=== PATIENT | male | born 1945 | race Caucasian/White ===

== ENCOUNTER 2021-07-07 11:12 | Emergency (ER) | payer MEDICARE, OTHER, SELFPAY ==
--- NOTE | ~2021-07-07 | CT_ITS ---
EXAMINATION: CT HEAD WITHOUT CONTRAST CLINICAL INFORMATION: Fall. Head trauma. Patient on Coumadin. COMPARISON: None TECHNIQUE: Contiguous axial imaging was performed from the skull base to vertex without intravenous administration of contrast. This CT examination was performed using dose optimization techniques as appropriate, variously including the following: *Automated exposure control *Adjustment of mA and/or kV according to patient size (this includes techniques or standardized protocols for targeted exams where dose is matched to indication/reason for exam; i.e. extremities or head) *Use of iterative reconstruction technique DLP: 805 mGy-cm FINDINGS: There is no evidence of an extra-axial collection. There is no evidence of intra-axial or extra-axial hemorrhage. The ventricles and extra-axial CSF spaces are slightly prominent suggestive of mild generalized atrophy. There is mild nonspecific periventricular white matter disease. There is an old right basal ganglia infarct. No mass, mass effect or acute infarct is seen. No skull fracture is seen. There is partial soft tissue opacification of the inferior bilateral mastoid air cells. Paranasal sinuses, mastoid air cells and middle ears are otherwise clear. CT/CT head/brain wo con IMPRESSION: No acute findings. Mild generalized atrophy and nonspecific periventricular white matter disease. Old right basal ganglia lacunar infarct.
[2021-07-07 11:16] VITALS: BP 162/72; PULSE 62; RESP 18; TEMP 36.7; O2SAT 98; BMI 31.1
[2021-07-07 13:04] LABS: MANUAL DIFF FLAG NO
[2021-07-07 13:06] LABS: Basophils Percent Auto 0.6 % (0-2); Eosinophils Absolute Auto 0.3 X10*3/uL (0.0-0.4); Eosinophils Percent Auto 4.9 % (0-4); Hematocrit 33.9 % (42-52); Hemoglobin 11.2 g/dl (14.0-18.0); Imm Gran Abs Auto 0.01 X10*3/uL (0.00-0.03); Imm Gran Pct Auto 0.1 % (0.0-0.4); Lymphocytes Absolute Auto 1.4 X10*3/uL (1.2-4.9); Lymphocytes Percent Auto 19.6 % (20-40); Mean Corpuscular Hemoglobin 30.4 pg (27.0-33.0); Mean Corpuscular Volume 92.1 fL (80-98); Mean Platelet Volume 9.1 fL (9.4-12.4); Monocytes Absolute Auto 0.8 X10*3/uL (0.1-1.2); Monocytes Percent Auto 11.1 % (2-11); Neutrophils Absolute Auto 4.4 X10*3/uL (2.0-8.3); Neutrophils Percent Auto 63.7 % (45-73); Platelet Count 219 X10*3/uL (160-400); Red Blood Count 3.68 X10*6/uL (4.60-5.80); Red Cell Distribution Width 13.6 % (11.0-16.0)
[2021-07-07 13:11] LABS: INTERNATIONAL NORM RATIO 1.2 (0.9-1.1); Prothrombin Time 13.6 SEC (9.9-13.0)
--- NOTE | 2021-07-07 13:36 | ED_ITS ---
HPI - General Adult General Source: patient and family Mode of arrival: ambulatory Limitations: no limitations History of Present Illness HPI narrative: 75-year-old male with past medical history of hypertension, hype rcholesteremia, hypothyroidism, history of stent 5 years ago is here today after sustaining fall at home. Patient reports that this was a mechanical fall. He got up from the couch and was walking pass the coffee table when he tripped on the wooden floor. Patient explains that he felt like his sneaker got caught on the floor and he lost his balance and fell backwards onto the coffee table. Patient is on blood thinners does not remember the name and was bleeding quite heavy. applied ice immediately. Patient denies any dizziness, blurred vision, paresthesia, neck pain, hip pain, any cervical pain. Patient denies any other concerning symptoms. Bleeding currently is under control. Patient denies any headache. Onset (ago): hour(s) Related Data Allergies Allergy/AdvReac Type Severity Reaction Status Date / Time No Known Allergies Allergy Unverified 06/10/20 14:55 [No Known Allergies*] Review of Systems Review of Systems: Constitutional : No Weight loss, No Fever, No Chills, No Night Sweats, No Fatigue, No Malaise ENT/Mouth : No Hearing loss, No Ear Pain, No Nasal Congestion, No Sinus Pain, No Hoarseness, No sore throat, No Rhinorrhea, No Swallowing Difficulty Eyes: No Eye Pain, No Swelling, No Redness, No Foreign Body, No Discharge, No Vision Changes Cardiovascular : No Chest Pain, No SOB, No Dyspnea on Exertion, No Orthopnea, No Edema, No Palpitations Respiratory : No Cough, No Sputum, No Wheezing, No Smoke Exposure, No Dyspnea Gastrointestinal : No Nausea, No Vomiting, No Diarrhea, No Constipation, No abdominal Pain, No Hematochezia, No Melena Genitourinary : no irregular bleeding, No Dysuria, No Urinary Frequency, No Hematuria, No Urinary Incontinence, No Urgency, No Flank Pain, No Urinary Flow Changes, No Hesitancy Musculoskeletal : No joint pain, No Myalgias, No Joint Swelling Skin : No Skin Lesions, No rash, head laceration Neuro : No Weakness, No Numbness, No Paresthesias, No Loss of Consciousness, No Dizziness, No Headache Yes all other systems are reviewed and are negative [facility] Past Medical History Medical History (Updated 07/08/21 @ 00:02 by Background Kathryn) High cholesterol HTN (hypertension) Hypothyroid Social History Social History Patient Tobacco Use Status: Former Tobacco user Advance Directives: No Advance Directives Information Provided: Yes Physical Exam Vital Signs: Vital Signs: Last Vital Signs Temp 98.0 F 07/07/21 11:16 Pulse 57 07/07/21 13:38 Resp 18 07/07/21 13:38 BP 160/69 H 07/07/21 13:38 Pulse Ox 99 07/07/21 13:38 Body Mass Index 31.1 Const: General: healthy appearing, no acute distress and well developed Nutritional Appearance: well nourished Orientation/consciousness: patient oriented x3 HENMT: Head: Yes laceration Ears: hearing grossly normal bilaterally, external ears normal and TM's normal bilaterally General nose exam: Normal external nose present and Normal nares present Face and sinus: Yes normal facial exam Mouth: Normal oral and palatal mucosa present Eyes: General: appearance normal, both eyes and all related structures Neck: Neck: Yes normal visual inspection, Yes full ROM and Yes trachea midline Thyroid: Thyroid normal Resp: Effort & Inspection: normal respiratory effort and able to speak in complete sentences Auscultation: clear to auscultation bilaterally Cardio: Jugular venous distension: no JVD Rate: regular rate Rhythm: regular rhythm Heart sounds: S1 normal heart sound present and S2 normal heart sound present GI: Inspection: Yes normal to inspection, No distended and Yes obesity Palpation (GI): Soft to palpation, nontender, no guarding and No hepatosplenomegaly present Auscultation: normal bowel sounds : General: Yes no CVA tenderness Back/Spine/Pelvis: Back: no CVA tenderness Cervical Spine: normal cervical lordosis Thoracic/Lumbar Spine: thoracic and lumbar spine normal to inspec tion Skin: General skin exam: elasticity normal, turgor normal and dry skin Neuro: General: patient oriented x3 Course Course Course Narrative: 76-year-old is here today after sustaining a fall. Patient is on anticoagulation medication. He tripped walking, his sneaker got caught on the floor and he fell backwards. He hit the back of his head against a coffee table. Patient does not remember when he had tetanus vaccine, will update that. Will order PT and INR. CT of the head. Will clean and stable his wound. Bleeding is under control. Patient denies any dizziness, blurred vision. Neuro's are intact NIH score is 0. Patient denies presyncope, syncope. Denies any CP, PND, palpitation, SOB with or without exertion. Reevaluation(s) Reevaluation #1: CT of the head negative for bleed or any acute findings. Will stable patient's wound. PT 13.6 and INR 1.2, H&H 11.2 and 33.9. Patient was given copy of his lab results we can bring it to his PCP. Patient denies any melena, hematochezia, unintentional weight loss or ribbon like stools. Patient continues to have intact neuro s, ambulated to the bathroom gait steady, denies any dizziness. Patient also denies any pain. He will go home to follow-up with his PCP. He may return to ER to remove his ayaan in 7-10 days. Discussed with him the importance to look for symptoms of concussion. Patient was encouraged to stay away from TV, cell phone, I pad or any other electronics for the next 72 hours. Medical Decision Making Lab Data Result diagrams: 07/07/21 13:00 Labs: Lab Results 07/07/21 07/07/21 Range/Units 13:00 13:00 WBC 7.0 (4.8-10.8) X10*3/uL RBC 3.68 L (4.60-5.80) X10*6/uL Hgb 11.2 L (14.0-18.0) g/dl Hct 33.9 L (42-52) % MCV 92.1 (80-98) fL MCH 30.4 (27.0-33.0) pg MCHC 33.0 (31.0-36.0) g/dl RDW 13.6 (11.0-16.0) % Plt Count 219 (160-400) X10*3/uL MPV 9.1 L (9.4-12.4) fL Immature Gran % (Auto) 0.1 (0.0-0.4) % Neut % (Auto) 63.7 (45-73) % Lymph % (Auto) 19.6 L (20-40) % [place] % (Auto) 11.1 H (2-11) % Eos % (Auto) 4.9 H (0-4) % Baso % (Auto) 0.6 (0-2) % Lymph # (Auto) 1.4 (1.2-4.9) X10*3/uL [place] # (Auto) 0.8 (0.1-1.2) X10*3/uL Eos # (Auto) 0.3 (0.0-0.4) X10*3/uL Baso # (Auto) 0.0 (0.0-0.2) X10*3/uL Abs Immat Gran (auto) 0.01 (0.00-0.03) X10*3/uL Absolute Neuts (auto) 4.4 (2.0-8.3) X10*3/uL Absolute Nucleated RBC 0.000 (0.0-0.012) X10*3/uL Nucleated RBC % (auto) 0.0 (0.0-0.2) /100WBC PT 13.6 H (9.9-13.0) SEC INR 1.2 H (0.9-1.1) Discharge Plan Discharge Clinical Impression: Laceration, Head concussion Patient Disposition: Home, Self-Care Instructions: Concussion (ED), Head Laceration (ED) Additional Instructions: You were seen here today after sustaining a fall. You have a laceration in the back of your head that was stapled today with total of 9 ayaan. Make sure you do not take a shower for the next 24 hours. When you do take a shower make sure that the water does not fall directly on to that laceration. Please make sure that you watch for signs and symptoms of blurred vision, headache, dizziness, excessive sleepiness. Please follow-up with your primary care physician in 2-3 days. You have to return for staple removal in 7-10 days. Please do not take ibuprofen. You may take Tylenol for headache or pain. You were also given a tetanus vaccine. Referrals: Raghu Drake MD [Primary Care Provider] - 2 days Interventions: ED Discharge Assessment Last Done: 07/07/21 14:29 Discharge Date/Time: 07/07/21 14:30
[2021-07-07 13:38] VITALS: BP 160/69; PULSE 57; RESP 18; O2SAT 99
[2021-07-07] MEDS: Diphth,Pertus(ACell),Tet Adult 0.5 ML SYRINGE IM (14:24)
== END 2021-07-07 14:30 | disposition home or self-care (01) ==
PROVIDERS: Nurse Practitioner Family; Emergency Provider Emergency Medicine; PCP Internal Medicine
DX: S06.0X0A Concussion without loss of consciousness, initial encounter (principal); S01.81XA Laceration without foreign body of other part of head, initial encounter; I10 Essential (primary) hypertension; Z79.01 Long term (current) use of anticoagulants; W01.190A Fall on same level from slipping, tripping and stumbling with subsequent striking against furniture, initial encounter; Y93.9 Activity, unspecified; Y92.009 Unspecified place in unspecified non-institutional (private) residence as the place of occurrence of the external cause; Y99.9 Unspecified external cause status
CPT/HCPCS: 12001; 36415; 70450; 85025; 85610; 90471; 90715; 99284

== ENCOUNTER 2023-04-16 12:02 | Emergency (ER) | payer MEDICARE, OTHER, SELFPAY ==
[2023-02-08 11:12] VITALS: BP 108/58; BP 136/62; BP 144/58; BMI 26.3
[2023-04-16 12:12] VITALS: BP 126/60; PULSE 61; RESP 18; TEMP 36; O2SAT 96; BMI 27.8
--- NOTE | 2023-04-16 12:13 | ED_ITS ---
HPI - General Adult General Chief complaint: Urogenital-Male Stated complaint: Urinary issues Time Seen by Provider: 04/16/23 13:27 Source: patient and RN notes reviewed Mode of arrival: ambulatory Limitations: no limitations History of Present Illness HPI narrative: This is a 77-year-old male, with a past medical history of hyperlipidemia, hypertension, and thyroid disease, presenting to the emergency department to have his Blanco catheter removed. Patient was away on vacation last week and having difficulty urinating as he was on a boat all day. He was seen in the emergency department where they placed a catheter and prescribed him Flomax. Patient has had a catheter in for 4 days and reports pulling sensation from the catheter and would like this removed. He has had no problems with his prostate or urinary retention in the past. Patient reports that while he was in the hospital, they tested him for a urinary tract infection which was negative. He denies any fevers, chills, nausea, vomiting, diarrhea, abdominal pain. He has not been taking Flomax as the pharmacy in [place] was closed, however is following up with primary care physician to have this prescribed to him if it is deemed necessary. No other complaints or concerns at this time. MD complaint: Blanco catheter removal Onset (ago): day(s) Severity: mild Quality: aching Relieving factors: none Exacerbating factors: none Associated symptoms: denies other symptoms Treatments prior to arrival: none Related Data Home Medications Medication Instructions Recorded Confirmed amiodarone 200 mg tablet 200 mg PO BID 01/01/23 atorvastatin 80 mg tablet 80 mg PO BEDTIME 01/01/23 clopidogrel 75 mg tablet 75 mg PO DAILY 01/01/23 ferrous sulfate 325 mg (65 mg 325 mg PO DAILY 01/01/23 iron) tablet,delayed release furosemide 40 mg tablet 40 mg PO BID 01/01/23 isosorbide mononitrate 30 mg 30 mg PO QAM 01/01/23 tablet,extended release 24 hr metoprolol succinate 50 mg 50 mg PO DAILY 01/01/23 tablet,extended release 24 hr tamsulosin 0.4 mg capsule 0.4 mg PO DAILY 01/01/23 Previous Rx's Medication Instructions Recorded azithromycin 250 mg tablet See Rx Instructions PO .COMPLEX #6 01/01/23 tabs cefuroxime axetil 250 mg tablet 250 mg PO BID 7 days #14 tabs 04/16/23 Allergies Allergy/AdvReac Type Severity Reaction Status Date / Time No Known Allergies Allergy Verified 04/16/23 12:12 [No Known Allergies*] Review of Systems Review of Systems: Yes all other systems are reviewed and are negative Constitutional: Constitutional: Reports as per [facility] Past Medical History Medical History (Updated 04/16/23 @ 17:18 by BARBARA Doshi) High cholesterol HTN (hypertension) Hypothyroid Social History Social History Patient Tobacco Use Status: Former Tobacco user Tobacco use type: Cigarette Years Smoked: 50 Advance Directives: No Advance Directives Information Provided: Yes Physical Exam ED Vital Signs: Vital Signs - 24 hr 04/16/23 12:12 Temperature 96.8 F Pulse Rate 61 Respiratory Rate 18 Blood Pressure 126/60 Pulse Oximetry 96 Oxygen Delivery Method Room Air BMI result Body Mass Index 27.8 Const General: cooperative, comfortable and no acute distress Orientation/consciousness: patient oriented x3 Limitations: no limitations HENMT Head: Yes normal to inspection, Yes normocephalic and Yes atraumatic Ears: hearing grossly normal bilaterally General nose exam: Normal external nose present Face and sinus: Yes normal facial exam Mouth: Normal oral and palatal mucosa present, oropharynx normal and moist mucous membranes Throat: Yes posterior oropharynx normal Eyes General: appearance normal, both eyes and all related structures Eyelids: Yes eyelids normal Conjunctivae: conjunctivae normal Sclerae: sclerae normal Pupils: Equal, round and reactive pupils present EOM: EOMs intact bilaterally Neck Neck: Yes normal visual inspection, Yes full ROM and Yes no lymphadenopathy Lymphatic: no lymphadenopathy noted Chest Chest palpation & inspection: normal inspection of the chest Resp Effort & Inspection: normal respiratory effort and able to speak in complete sentences Auscultation: clear to auscultation bilaterally, no crackles, no rales, no rhonchi and no wheezes Cardio Rate: regular rate Rhythm: regular rhythm Heart sounds: S1 normal heart sound present and S2 normal heart sound present GI Other: Abdomen is soft, non distended, nontender Inspection: Yes normal to inspection Other: exam performed with picture framer, Ysabel Latham LPN present. Blanco catheter placed, no surrounding erythema or edema. No testicular swelling or erythema noted Male General Exam: Yes normal external exam Penis: normal penis and circumcised Meatus: meatus normal, no meatla discharge and No Blood at meatus present Scrotum: scrotum normal Testes: Testes normal Skin General skin exam: no rashes or lesions noted Trauma: no lacerations or abrasions Wounds: no wounds Neuro General: patient oriented x3 and moves all extremities Cranial nerves: Yes Equal, round and reactive pupils present Extrem General: Yes normal to inspection Right upper extremity: normal to inspection Left upper extremity: normal to inspection Right lower extremity: normal to inspection Left lower extremity: normal to inspection Course Course Course Narrative: RME- this 77-year-old male presents for evaluation of ?issues with Blanco ca theter. Patient had a Blanco catheter placed 4 days ago in an emergency room in [place]. He has not been able to fiber picker his prescription for Flomax. He is having some discomfort related to the catheter as there is a ?pulling sensation. He reports the catheter is draining appropriately. Plan to get the patient a bed when available Reevaluation(s) Reevaluation #1: Patient has urinated 2-3 times since having Blanco catheter removed. Patient has no pain with urination or blood in his urine. I believe urine sample collected from catheter revealing blood and small leuks is due to trauma of having catheter placed. Given patient has had increased urinary frequency since having catheter removed in the emergency department as well as small leukoesterases, and bacteria, will treat as urinary tract infection. Patient given referral to Urology. Advised to call tomorrow for an appointment as well as following up with primary care physician regarding this visit. Ultrasound confirming no urinary retention. Patient given return precautions if any new or worsening symptoms occur. Patient understands and agrees with plan. Time: 17:08 Medical Decision Making Medical Decision Making [facility] Narrative: 77-year-old male presenting to the emergency department to have Blanco catheter removed. Patient had Blanco catheter placed while on vacation in [place] for urinary retention. He is also given a prescription for Flomax which he did not fiber picker from the pharmacy as it was already closed. He has had no history of prostate problems in the past. No history of urinary retention in the past. On arrival, vital signs within normal limits. Differential diagnoses include urinary retention, BPH, urinary tract infection, obstructive uropathy. Plan: Remove catheter, UA, postvoid ultrasound Differential Diagnosis Differential Diagnoses: The differential diagnosis associated with the presentation includes Urinary retention, BPH, urinary tract infection, cystitis Lab Data [facility] Lab Attestation statement: I reviewed the patient's lab results. Labs: Lab Results 04/16/23 Range/Units 14:56 Urine Color Yellow Urine Appearance Clear Urine pH 6.0 (5.0-9.0) Ur Specific [place] 1.020 (1.005-1.025) Urine Protein 30 (1+) H (Neg-Trace) mg/dL Urine Glucose (UA) Negative (Negative) mg/dL Urine Ketones Negative (Negative) mg/dL Urine Blood Large (3+) H (Negative) Urine Nitrite Negative (Negative) Ur Leukocyte Esterase Small (1+) H (Negative) Urine RBC >20 H (0-2) /HPF Urine WBC 0-5 (0-5) /HPF Ur Squamous Epith Cells 0-2 (0-2) /HPF Urine Bacteria Trace (None Seen) Hyaline Casts 0-2 (0-2) /LPF Radiology Impression Discussion of test interpretation with radiology: I have reviewed the radiologist's reading. External Record Review External record reviewed: Inpatient record, Office record, Outpatient record, Prior outpatient labs, Prior outpatient radiology, Primary care record and Outside ED record Discharge Plan Discharge Clinical Impression: History of urinary retention, Blanco catheter in place prior to arrival, Urinary tract infection Patient Disposition: Home, Self-Care Instructions: Urinary Tract Infection in Men (ED), Catheter-associated Urinary Tract Infection (ED) Additional Instructions: Please drink plenty of fluids and get plenty of rest. Please follow-up with your primary care physician regarding this visit. Also call Urology tomorrow for follow up. Please take full course of antibiotics, even if you are feeling better. If any new or worsening symptoms occur including but not limited to inability to urinate, fevers, chills, painful urination, please return for re-evaluation. Prescriptions: New cefuroxime axetil 250 mg tablet 250 mg PO BID 7 Days Qty: 14 0RF No Action ferrous sulfate 325 mg (65 mg iron) tablet,delayed release (DR/EC) 325 mg PO DAILY tamsulosin 0.4 mg capsule 0.4 mg PO DAILY metoprolol succinate 50 mg tablet extended release 24 hr 50 mg PO DAILY atorvastatin 80 mg tablet 80 mg PO BEDTIME clopidogrel 75 mg tablet 75 mg PO DAILY furosemide 40 mg tablet 40 mg PO BID amiodarone 200 mg tablet 200 mg PO BID isosorbide mononitrate 30 mg tablet extended release 24 hr 30 mg PO QAM azithromycin 250 mg tablet See Rx Instructions PO .COMPLEX Qty: 6 0RF Rx Instructions: take 500 mg today (day 1), then 250 mg for 4 days (days 2-5) PO Referrals: [facility] [Provider Group] Interventions: ED Discharge Assessment Last Done: 04/16/23 17:29 Discharge Date/Time: 04/16/23 17:29
--- OUTSIDE RECORDS SUMMARY | 2023-04-16 13:34 | XMS_ITS | Continuity of Care Document ---
Author Name Unknown Organization [facility] Address [address] [place] [address]- Care Team Providers Care Power Superintendent Name Role Phone Tasneem Borja MD Primary Care Physician [place] [facility] [place] - 09/14/22 [facility] [address] [place] [phone]- [place] Allergies, Adverse Reactions, Alerts No Known Allergies Medications amiodarone 200 mg oral tablet 200 mg, 1, tablet, By Mouth, 2 times a day, # 60 tablet, Refills 0, Tot. Refills 0, Maintenance, 08/28/22 14:55:00 EST, Route to Pharmacy Electronically, [facility], Partial fill upon patient request if the prescription is for a schedule... Start Date: 08/28/22 Status: Ordered aspirin 81 mg oral delayed release tablet 81 mg, By Mouth, Daily, Refills 0, Maintenance, 01/26/16 16:24:29 Start Date: 01/26/16 Status: Ordered atorvastatin 80 mg oral tablet = 80 mg, By Mouth, Daily at bedtime, # 30 tablet, 11 Refills, Maintenance, Tablet, Print Requisition Start Date: 01/26/16 Status: Ordered Cholecalciferol = 1,000 units, By Mouth, Daily, 0 Refills, Maintenance, 08/11/22 10:25:00 EST, Partial fill upon patient request if the prescription is for a schedule II opioid drug. Start Date: 08/11/22 Status: Ordered clopidogrel 75 mg oral tablet 75 mg, 1, tablet, By Mouth, Daily, # 30 tablet, Refills 0, Tot. Refills 0, Maintenance, 08/28/22 14:55:00 EST, Route to Pharmacy Electronically, [facility], Partial fill upon patient request if the prescription is for a schedule II opioi... Start Date: 08/28/22 Status: Ordered cyanocobalamin 1000 mcg oral tablet 1,000 mcg, 1, tablet, By Mouth, Daily, # 30 tablet, Refills 0, Maintenance, 08/14/22 10:44:00 EST, Partial fill upon patient request if the prescription is for a schedule II opioid drug. Start Date: 08/14/22 Status: Ordered docusate-senna 50 mg-187 mg oral tablet 1 tablet, By Mouth, Daily, # 30 tablet, 0 Refills, Acute 09/25/22 14:57:00 EST, 08/28/22 14:56:00 EST, Tablet, [facility], Partial fill upon patient request if the prescription is for aschedule II opioid drug., 1 tablet By Mouth Daily,... Start Date: 08/28/22 Stop Date: 09/25/22 Status: Ordered ferrous sulfate 325 mg oral enteric coated tablet 325 mg, 1, tablet, By Mouth, Daily, # 30 tablet, Refills 0, Tot. Refills 0, Maintenance, 08/28/22 14:56:00 EST, Route to Pharmacy Electronically, [facility], Partial fill upon patient request if the prescription is for a schedule II opio... Start Date: 08/28/22 Status: Ordered Lasix 40 mg oral tablet 40 mg, 1, tablet, By Mouth, 2 times a day, # 6 tablet, Refills 0, Tot. Refills 0, Maintenance, 08/28/22 14:56:00 EST, Route to Pharmacy Electronically, [facility], Partial fill upon patient request if the prescription is for a schedule I... Start Date: 08/28/22 Stop Date: 08/31/22 Status: Ordered levothyroxine 150 mcg (0.15 mg) oral tablet 1 tablet = 150 mcg, By Mouth, Every other day, Alternate with 175mcg dose, # 30 tablet, 0 Refills, Maintenance, 08/14/22 10:52:00 EST, Tablet, Partial fill upon patient request if the prescription isfor a schedule II opioid drug. Start Date: 08/14/22 Status: Ordered levothyroxine 175 mcg (0.175 mg) oral tablet 1 tablet = 175 mcg, By Mouth, Every other day, Alternate with 150mcg dose, # 30 tablet, 0 Refills, Maintenance, 08/14/22 10:51:00 EST, Tablet, Partial fill upon patient request if the prescription isfor a schedule II opioid drug. Start Date: 08/14/22 Status: Ordered Otezla 30 mg oral tablet 1 tablet = 30 mg, By Mouth, 2 times a day, 0 Refills, Maintenance, 08/11/22 10:14:00 EST, Partial fill upon patient request if the prescription is for a schedule II opioid drug. Start Date: 08/11/22 Status: Ordered potassium chloride 10 mEq oral tablet, extended release 2 tablet = 20 mEq, By Mouth, 2 times a day, # 12 tablet, 0 Refills, Maintenance, 08/28/22 14:56:00 EST, ER Tablet, [facility], Partial fill upon patient request if the prescription is for a schedule II opioid drug., 186, cm, 08/28/22 12:... Start Date: 08/28/22 Stop Date: 08/31/22 Status: Ordered tamsulosin 0.4 mg oral capsule 0.4 mg, 1, capsule, By Mouth, Daily, # 30 capsule, Refills 0, Tot. Refills 0, Maintenance, 08/28/2214:56:00 EST, Route to Pharmacy Electronically, [facility], Partial fill upon patientrequest if the prescription is for a schedule II op... Start Date: 08/28/22 Status: Ordered Toprol XL 50 mg oral tablet, extended release 50 mg, 1, tablet, By Mouth, Daily, Refills 0, Maintenance, 01/26/16 16:25:47 EDT Start Date: 01/26/16 Status: Ordered Problem List Condition Confirmation Course Effective Dates Status Health St [facility] Informant COPD mixed type Confirmed Active Coronary artery disease Confirmed Active Hypertension Confirmed Active Social History Social History Type Response Smoking Status Former smoker, quit more than 30 days ago entered on: 09/05/22 Sex Patient Care team information Care Team Personnel Name: Tasneem Borja MD [facility] Outreach Member Role: PCP Address: Address: [address] [place] [address]- Name: Laura Roberts RN Position: S RN Supv Member Role: Primary Care Nurse Care Team Related Persons Name: TRISHA ALYSHA Address: home [address] [place] [address]
--- OUTSIDE RECORDS SUMMARY | 2023-04-16 13:34 | XMS_ITS | Continuity of Care Document ---
Author Name Unknown Organization [facility] Address [address] [place] [phone]- Care Team Providers Care Ingot Weigher Name Role Phone Tasneem Borja MD Primary Care Physician [place] [facility] [place] 12/27/22 - 01/26/23 [facility] [address] [place] [address]- Attending Physician: Olivier Torrez Admitting Physician: Olivier Torrez Referring Physician: Olivier Torrez Allergies, Adverse Reactions, Alerts No Known Allergies Medications Acetaminophen = 975 mg, 0 Refills, Maintenance, 11/15/22 10:54:00 EST, Partial fill upon patient request if the prescription is for a schedule II opioid drug. Start Date: 11/15/22 Status: Ordered aspirin 81 mg oral delayed [...] Status: Ordered clopidogrel 75 mg oral tablet 1, tablet, By Mouth, Daily, # 30 tablet, Refills 0, Maintenance, 11/03/22 13:59:00 EST, Route to Pharmacy Electronically, [id number], 186, cm, 10/18/22 10:20:00 EST, Height, 101, kg, 08/23/22 15:54:00 EST, Dry Weight Start Date: 11/03/22 Status: Ordered cyanocobalamin 1000 mcg oral tablet 1,000 mcg, 1, tablet, By Mouth, Daily, # 30 tablet, Refills 0, Maintenance, 08/14/22 10:44:00 EST, Partial fill upon patient request if the prescription is for a schedule II opioid drug. Start Date: 08/14/22 Status: Ordered Docusate-Senna 50 mg - 187 mg Docusate-Senna 50 mg - 187 mg, By Mouth, Daily, 0 Refills, Maintenance, 12/19/22 13:45:00 EDT Start Date: 12/19/22 Status: Ordered ferrous sulfate 325 mg oral enteric coated tablet 1, tablet, By Mouth, Daily, # 30 tablet, Refills 0, Maintenance, 12/28/22 12:07:00 EDT, Route to Pharmacy Electronically, [id number], 188, cm, 12/27/22 15:10:00 EDT, Height, 101, kg, 08/23/22 15:54:00 EST, Dry Weight Start Date: 12/28/22 Status: Ordered Lasix 40 mg oral tablet 40 mg, 1, tablet, By Mouth, Daily, # 180 tablet, Refills 3, Tot. Refills 3, Maintenance, 10/24/22 7:50:00 EST, Route to Pharmacy Electronically, [facility] #[id number], Partial fill upon patient request if the prescription is for a schedule II opioid drug... Start Date: 10/24/22 Status: Ordered levothyroxine 150 mcg (0.15 mg) [...] Refills, Maintenance, 08/28/22 14:56:00 EST, ER Tablet, [facility], Partial fill upon patient request if the prescription is for a schedule II opioid drug., 186, cm, 08/28/22 12:... Start Date: 08/28/22 Stop Date: 08/31/22 Status: Ordered Senna 8.6-50MG, By Mouth, Daily, 0 Refills, Maintenance, 11/15/22 10:54:00 EST, Partial fill upon patientrequest if the prescription is for a schedule II opioid drug. Start Date: 11/15/22 Status: Ordered tamsulosin 0.4 mg oral capsule 1, capsule, By Mouth, Daily, # 30 capsule, Refills 0, Maintenance, 12/28/22 12:07:00 EDT, Route to Pharmacy Electronically, [id number], 188, cm, 12/27/22 15:10:00 EDT, Height, 101, kg, 08/23/22 15:54:00 EST, Dry Weight Start Date: 12/28/22 Status: Ordered Toprol XL 50 mg oral tablet, extended release 50 mg, 1, tablet, By Mouth, Daily, Refills 0, Maintenance, 01/26/16 16:25:47 EDT Start Date: 01/26/16 Status: Ordered Problem List Condition Confirmation Course Effective Dates Status Health St [facility] Informant Aortic stenosis Confirmed Active COPD mixed type Confirmed Active Coronary artery disease Confirmed Active Hypertension Confirmed Active Social History Social History Type Response Smoking Status Former smoker, quit more than 30 days ago entered on: 09/05/22 Sex Patient Care team information Care Team Personnel Name: Tasneem Borja MD Position: [facility] Outreach Member Role: PCP Address: Address: [address] [place] [address]- Name: Laura Roberts RN Position: [facility] RN Supv Member Role: Primary Care Nurse Care Team Related Persons Name: ALYSHA RICO Address: home [address] [place] [address]
--- OUTSIDE RECORDS SUMMARY | 2023-04-16 13:34 | XMS_ITS | Continuity of Care Document ---
Author Name Unknown Organization [facility] Address [address] [place] [phone]- Care Team Providers Care Capacity Planning Analyst Name Role Phone Tasneem Borja MD Primary Care Physician Encounter [facility] [place] [id number] Date(s): 09/01/22 - 12/30/22 [facility] [address] [place] [address]- Attending Physician: Ismael Mayer MD Referring Physician: Tasneem Borja MD Allergies, Adverse Reactions, Alerts No Known Allergies [...] 11/03/22 13:59:00 EST, Route to Pharmacy Electronically, [facility] [id number], 186, cm, 10/18/22 10:20:00 EST, Height, 101, [...] 12/28/22 12:07:00 EDT, Route to Pharmacy Electronically, [facility], 188, cm, 12/27/22 15:10:00 EDT, Height, 101, kg, 08/23/22 15:54:00 EST, Dry Weight Start Date: 12/28/22 Status: Ordered Lasix 40 mg oral tablet 40 mg, 1, tablet, By Mouth, Daily, # 180 tablet, Refills 3, Tot. Refills 3, Maintenance, 10/24/22 7:50:00 EST, Route to Pharmacy Electronically, [facility]/pharmacy #[id number], Partial fill upon patient request if [...] Refills, Maintenance, 08/28/22 14:56:00 EST, ER Tablet, [facility], Partial fill upon patient request if [...] 12/28/22 12:07:00 EDT, Route to Pharmacy Electronically, [facility] 12256, 188, cm, 12/27/22 15:10:00 EDT, Height, 101, [...] Team Personnel Name: Tasneem Borja MD Position: [facility] Outreach Member Role: PCP Address: Address: [address] [place] [address]- [place] Name: Laura Roberts RN Position: [facility] RN Supv Member Role: Primary Care Nurse Care Team Related Persons Name: ALYSHA RICO Address: home [address] [place] [address]
--- OUTSIDE RECORDS SUMMARY | 2023-04-16 13:34 | XMS_ITS | Continuity of Care Document ---
Author Name Unknown Organization [facility] Address [address] [place] [address]- Care Team Providers Care Counselor Education Professor Name Role Phone Jonh DILLARD, Tasneem Steiner Primary Care Physician [place] [facility] [place] 09/14/22 [facility] [address] [place], [place] [address] Attending Physician: Olivier Torrez Admitting Physician: Olivier Torrez Referring Physician: AdmtrOlivier Allergies, Adverse Reactions, Alerts No Known Allergies Medications amiodarone 200 mg oral tablet 200 mg, 1, tablet, By Mouth, 2 times a day, # 60 tablet, Refills 0, Tot. Refills 0, Maintenance, 08/28/22 14:55:00 EST, Route to Pharmacy Electronically, [facility], Partial fill upon patient request [...] 08/28/22 14:55:00 EST, Route to Pharmacy Electronically, [facility], Partial fill upon patient request [...] 09/25/22 14:57:00 EST, 08/28/22 14:56:00 EST, Tablet, [facility], Partial fill upon patient request if the prescription is for aschedule II opioid drug., 1 tablet By Mouth Daily,... Start Date: 08/28/22 Stop Date: 09/25/22 Status: Ordered ferrous sulfate 325 mg oral enteric coated tablet 325 mg, 1, tablet, By Mouth, Daily, # 30 tablet, Refills 0, Tot. Refills 0, Maintenance, 08/28/22 14:56:00 EST, Route to Pharmacy Electronically, [facility], Partial fill upon patient request if the prescription is for a schedule II opio... Start Date: 08/28/22 Status: Ordered Lasix 40 mg oral tablet 40 mg, 1, tablet, By Mouth, 2 times a day, # 6 tablet, Refills 0, Tot. Refills 0, Maintenance, 08/28/22 14:56:00 EST, Route to Pharmacy Electronically, [facility], Partial fill upon patient request [...] Refills, Maintenance, 08/28/22 14:56:00 EST, ER Tablet, [facility], Partial fill upon patient request if the prescription is for a schedule II opioid drug., 186, cm, 08/28/22 12:... Start Date: 08/28/22 Stop Date: 08/31/22 Status: Ordered tamsulosin 0.4 mg oral capsule 0.4 mg, 1, capsule, By Mouth, Daily, # 30 capsule, Refills 0, Tot. Refills 0, Maintenance, 08/28/2214:56:00 EST, Route to Pharmacy Electronically, [facility], Partial fill upon patientrequest if [...] Team Personnel Name: Tasneem Borja MD Position: S Outreach Member Role: PCP Address: Address: [address] [place] [address]- Name: Laura Roberts RN Position: S RN Supv Member Role: Primary Care Nurse Care Team Related Persons Name: ALYSHA RICO Address: [address] [address]
--- OUTSIDE RECORDS SUMMARY | 2023-04-16 13:34 | XMS_ITS | Continuity of Care Document ---
Author Name Unknown Organization [facility] Address [address] [place] [phone]- Care Team Providers Care Pediatric Dental Assistant Name Role Phone Tasneem Borja MD Primary Care Physician [place] [facility] [place] [facility] [place] 05/26/22 - 06/02/22 [facility] [address] [place] [address]- Encounter Diagnosis Coronary artery disease(Discharge Diagnosis) - 05/26/22 Hypertension(Discharge Diagnosis) - 05/26/22 Obese class I(Discharge Diagnosis) - 05/26/22 COPD mixed type(Discharge Diagnosis) - 05/26/22 Attending Physician: Ismael Mayer MD Referring Physician: Tasneem Borja MD Allergies, Adverse Reactions, Alerts No Known Medication Allergies Medications aspirin 81 mg oral delayed release tablet 81 mg, By Mouth, Daily, Refills 0, Maintenance, 01/26/16 16:24:29 Start Date: 01/26/16 Status: Ordered atorvastatin 80 mg oral tablet = 80 mg, By Mouth, Daily at bedtime, # 30 tablet, 11 Refills, Maintenance, Tablet, Print Requisition Start Date: 01/26/16 Status: Ordered Flomax 0.4 mg oral capsule 0.4 mg, By Mouth, Daily, Refills 0, Maintenance, 01/26/16 16:25:51 Start Date: 01/26/16 Status: Ordered Imdur 30 mg oral tablet, extended release 30 mg, By Mouth, Daily, # 30 tablet, Refills 11, Tot. Refills 11, Maintenance, 01/26/16 16:25:04, Print Requisition Start Date: 01/26/16 Status: Ordered lisinopril 40 mg oral tablet 1 tablet = 40 mg, By Mouth, Daily, 0 Refills, Maintenance, 06/17/21 13:14:00 EDT, Partial fill uponpatient request if the prescription is for a schedule II opioid drug. Start Date: 06/17/21 Status: Ordered nitroglycerin 0.4 mg sublingual tablet = 0.4 mg, Sublingual, Every 5 minutes, PRN Chest Pain, 0 Refills, Maintenance, 01/26/16 16:25:49, Tablet Start Date: 01/26/16 Status: Ordered Synthroid 0.125 mg oral tablet By Mouth, Daily, 0 Refills, Maintenance, 01/26/16 16:25:30, Tablet Start Date: 01/26/16 Status: Ordered Toprol XL 50 mg oral tablet, extended release 150 mg, By Mouth, Daily, Refills 0, Maintenance, 01/26/16 16:25:47 Start Date: 01/26/16 Status: Ordered Vitamin B Complex oral tablet, extended release By Mouth, Daily, 0 Refills, Maintenance, 06/17/21 13:14:00 EDT, Partial fill upon patient request if the prescription is for a schedule II opioid drug. Start Date: 06/17/21 Status: Ordered Problem List Condition Effective Dates Status Health Status Inform ant COPD mixed type(Confirmed) Active Coronary artery disease(Confirmed) Active Hypertension(Confirmed) Active Diagnosis Diagnosis Type Effective Dates Health Status Clinical Service Informant Coronary artery disease Discharge Diagnosis 05/26/22 Hypertension Discharge Diagnosis 05/26/22 Obese class I Discharge Diagnosis 05/26/22 COPD mixed type Discharge Diagnosis 05/26/22 Vital Signs Most recent to oldest [Reference Range]: 1 Height 189 cm (05/26/22 1:36 PM) Weight 100.0 kg (05/26/22 1:36 PM) Pulse Rate [55-90 bpm] 83 bpm (05/26/22 1:36 PM) Body Mass Index [18.5-24.99] 27.99 *H* (05/26/22 1:36 PM) Blood Pressure [90-138/55-84 mm Hg] 121/ 59mm Hg (05/26/22 1:36 PM) Blood pressure sites Arm, right (05/26/22 1:36 PM) Care Team Personnel Name: Tasneem Borja MD Address: [address] [place] [address]
--- OUTSIDE RECORDS SUMMARY | 2023-04-16 13:34 | XMS_ITS | Continuity of Care Document ---
Author Name Unknown Organization [facility] Address [address] [place] [address]- Care Team Providers Care Lighting Engineer Name Role Phone Tasneem Borja MD Primary Care Physician [place] [facility] [place] [id number] Date(s): 09/06/22 - 11/05/22 [facility] [address] [place] [address]- Attending Physician: Emily Holman NP Admitting Physician: River VELAZQUEZ, Emily Hudson Referring Physician: Tasneem Borja MD Allergies, Adverse Reactions, Alerts No Known Allergies Medications amiodarone 200 mg oral tablet 200 mg, 1, tablet, By Mouth, 2 times a day, # 60 tablet, Refills 0, Tot. Refills 0, Maintenance, 08/28/22 14:55:00 EST, Route to Pharmacy Electronically, [facility], Partial fill upon patient [...] 11/03/22 13:59:00 EST, Route to Pharmacy Electronically, [id number], 186, cm, 10/18/22 10:20:00 EST, Height, 101, kg, 08/23/22 15:54:00 EST, Dry Weight Start Date: 11/03/22 Status: Ordered cyanocobalamin 1000 mcg oral tablet 1,000 mcg, 1, tablet, By Mouth, Daily, # 30 tablet, Refills 0, Maintenance, 08/14/22 10:44:00 EST, Partial fill upon patient request if the prescription is for a schedule II opioid drug. Start Date: 08/14/22 Status: Ordered ferrous sulfate 325 mg oral enteric coated tablet 1, tablet, By Mouth, Daily, # 30 tablet, Refills 0, Maintenance, 10/26/22 14:13:00 EST, Route to Pharmacy Electronically, [facility]78, 186, cm, 10/18/22 10:20:00 EST, Height, 101, kg, 08/23/22 15:54:00 EST, Dry Weight Start Date: 10/26/22 Status: Ordered Lasix 40 mg oral tablet 40 mg, 1, tablet, By Mouth, 2 times a day, # 180 tablet, Refills 3, Tot. Refills 3, Maintenance, 10/24/22 7:50:00 EST, Route to Pharmacy Electronically, [facility]/pharmacy #[id number], Partial fill upon patient request if the prescription is for a schedule II opi... Start Date: 10/24/22 Status: Ordered levothyroxine 150 [...] Refills, Maintenance, 08/28/22 14:56:00 EST, ER Tablet, [facility], Partial fill upon patient request if the prescription is for a schedule II opioid drug., 186, cm, 08/28/22 12:... Start Date: 08/28/22 Stop Date: 08/31/22 Status: Ordered tamsulosin 0.4 mg oral capsule 1, capsule, By Mouth, Daily, # 30 capsule, Refills 0, Maintenance, 10/26/22 14:13:00 EST, Route to Pharmacy Electronically, [id number], 186, cm, 10/18/22 10:20:00 EST, Height, 101, kg, 08/23/22 15:54:00 EST, Dry Weight Start Date: 10/26/22 Status: Ordered Toprol XL 50 mg oral [...] Team Personnel Name: Tasneem Borja MD Position: [facility] Outreach Member Role: PCP Address: Address: [address] [place] [address]- Name: Laura Roberts RN Position: S RN Supv Member Role: Primary Care Nurse Care Team Related Persons Name: TRISHA ALYSHA Address: home [address] [place] [address]
--- OUTSIDE RECORDS SUMMARY | 2023-04-16 13:34 | XMS_ITS | Continuity of Care Document ---
Author Name Unknown Organization [facility] Address [address] [place] [address]- Care Team Providers Care Ear Nose Throat Surgeon Name Role Phone Tasneem Borja MD Primary Care Physician Encounter [facility] [place] Date(s): 11/20/22 - 12/20/22 [facility] [address] [place] [address]- [place] Allergies, Adverse Reactions, Alerts No Known Allergies Medications Acetaminophen = 975 mg, 0 Refills, Maintenance, 11/15/22 10:54:00 EST, Partial fill upon patient request if the prescription is for a schedule II opioid drug. Start Date: 11/15/22 Status: Ordered amiodarone 200 mg oral tablet 200 mg, 1, tablet, By Mouth, 2 times a day, Refills 0, Maintenance, 12/19/22 13:45:00 EDT, Partial fill upon patient request if the prescription is for a schedule II opioid drug. Start Date: 12/19/22 Status: Ordered aspirin 81 mg oral delayed [...] 11/03/22 13:59:00 EST, Route to Pharmacy Electronically, [facility], 186, cm, 10/18/22 10:20:00 EST, Height, 101, [...] Daily, # 30 tablet, Refills 0, Maintenance, 11/30/22 8:41:00 EST, Route to Pharmacy Electronically, [facility] [id number], 186, cm, 11/15/22 10:52:00 EST, Height, 101, kg, 08/23/22 15:54:00 EST, Dry Weight Start Date: 11/30/22 Status: Ordered Lasix 40 mg oral tablet 40 mg, 1, tablet, By Mouth, Daily, # 180 tablet, Refills 3, Tot. Refills 3, Maintenance, 10/24/22 7:50:00 EST, Route to Pharmacy Electronically, [facility]/pharmacy #[id number], Partial fill upon patient request if [...] Refills, Maintenance, 08/28/22 14:56:00 EST, ER Tablet, [facility], Partial fill upon patient request if [...] Daily, # 30 capsule, Refills 0, Maintenance, 11/30/22 8:41:00 EST, Route to Pharmacy Electronically, [id number], 186, cm, 11/15/22 10:52:00 EST, Height, 101, kg, 08/23/22 15:54:00 EST, Dry Weight Start Date: 11/30/22 Status: Ordered Toprol XL 50 mg oral [...] Team Personnel Name: Tasneem Borja MD Position: [facility] Outreach Member Role: PCP Address: Address: [address] [place] [address] Name: Laura Roebrts RN Position: [facility] RN Supv Member Role: Primary Care Nurse Care Team Related Persons Name: ALYSHA RICO Address: [address] [address]
--- OUTSIDE RECORDS SUMMARY | 2023-04-16 13:34 | XMS_ITS | Continuity of Care Document ---
Author Name Unknown Organization [facility] Card[facility] Sherri best Address [address] [place] [id number]- Care Team Providers Care Sewing Machine Maintenance Mechanic Name Role Phone Jonh DILLARD, Tasneem Steiner Primary Care Physician Encounter [facility] Date(s): 09/05/22 - 10/05/22 [facility] [address] [place] [id number] Attending Physician: Olivier Torrez Admitting Physician: Olivier Torrez Referring Physician: AdmtrOlivier Allergies, Adverse Reactions, Alerts No Known Allergies Medications amiodarone 200 mg oral tablet 200 mg, 1, tablet, By Mouth, 2 times a day, # 60 tablet, Refills 0, Tot. Refills 0, Maintenance, 08/28/22 14:55:00 EST, Route to Pharmacy Electronically, [facility], Partial fill upon patient request [...] tablet, Refills 0, Tot. Refills 0, Maintenance, 09/20/22 7:52:00 EST, Route to Pharmacy Electronically, [facility]/pharmacy #[id number], Partial fill upon patient request if the prescription is for a schedule II opioid drug.... Start Date: 09/20/22 Status: Ordered cyanocobalamin 1000 mcg oral tablet [...] tablet, Refills 0, Tot. Refills 0, Maintenance, 09/20/22 7:52:00 EST, Route to Pharmacy Electronically, [facility]/pharmacy #[id number], Partial fill upon patient request if the prescription is for a schedule II opioid drug... Start Date: 09/20/22 Status: Ordered Lasix 40 mg oral tablet 40 mg, 1, tablet, By Mouth, 2 times a day, # 6 tablet, Refills 0, Tot. Refills 0, Maintenance, 08/28/22 14:56:00 EST, Route to Pharmacy Electronically, [facility], Partial fill upon patient request if [...] Refills, Maintenance, 08/28/22 14:56:00 EST, ER Tablet, [facility], Partial fill upon patient request if the prescription is for a schedule II opioid drug., 186, cm, 08/28/22 12:... Start Date: 08/28/22 Stop Date: 08/31/22 Status: Ordered tamsulosin 0.4 mg oral capsule 0.4 mg, 1, capsule, By Mouth, Daily, # 30 capsule, Refills 0, Tot. Refills 0, Maintenance, :52:00 EST, Route to Pharmacy Electronically, [facility]/pharmacy #[id number], Partial fill upon patient request if the prescription is for a schedule II opioid Start Date: 09/20/22 Status: Ordered Toprol XL 50 mg oral [...] Team Personnel Name: Tasneem Borja MD Position: [facility] Outreach Member Role: PCP Address: Address: [address] [place] [id number]- Name: Laura Roberts RN Position: S RN Supv Member Role: Primary Care Nurse Care Team Related Persons Name: TRISHA, ALYSHA Address: [address] [address]
--- OUTSIDE RECORDS SUMMARY | 2023-04-16 13:34 | XMS_ITS | Continuity of Care Document ---
Author Name Unknown Organization [facility] ter Address [address] [place] [id number] Care Team Providers Care Can Coverer Name Role Phone Jonh DILLARD, Tasneem Steiner Primary Care Physician Encounter [facility] Date(s): 08/23/22 - 08/28/[address] [id number] Discharge Disposition: A-D/C Home Attending Physician: Augusto Eddy MD Admitting Physician: Augusto Eddy MD Referring Physician: Moerno DILLARD, Ismael Santoro Allergies, Adverse Reactions, Alerts No Known Allergies Medications acetaminophen 325 mg oral tablet 975 mg, By Mouth, Every 6 hours, for 3 days, # 36 tablet, Refills 0, Tot. Refills 0, Acute 08/31/2214:55:00 EST, 08/28/22 14:55:00 EST, Route to Pharmacy Electronically, [facility], Partial fill upon patient request if the prescription... Start Date: 08/28/22 Stop Date: 08/31/22 Status: Ordered Acetaminophen Tablet 975 mg, Tablet, By Mouth, (scheduled) for mild pain, (May give via NG tube), 08/28/22 9:00:00 EST Start Date: 08/28/22 Stop Date: 08/28/22 Status: Completed amiodarone 200 mg oral tablet 200 mg, 1, tablet, By Mouth, 2 times a day, # 60 tablet, Refills 0, Tot. Refills 0, Maintenance, 08/28/22 14:55:00 EST, Route to Pharmacy Electronically, [facility], Partial fill upon patient request [...] 08/28/22 14:55:00 EST, Route to Pharmacy Electronically, [facility], Partial fill upon patient request [...] 09/25/22 14:57:00 EST, 08/28/22 14:56:00 EST, Tablet, [facility], Partial fill upon patient request if the prescription is for aschedule II opioid drug., 1 tablet By Mouth Daily,... Start Date: 08/28/22 Stop Date: 09/25/22 Status: Ordered ferrous sulfate 325 mg oral enteric coated tablet 325 mg, 1, tablet, By Mouth, Daily, # 30 tablet, Refills 0, Tot. Refills 0, Maintenance, 08/28/22 14:56:00 EST, Route to Pharmacy Electronically, [facility], Partial fill upon patient request if the prescription is for a schedule II opio... Start Date: 08/28/22 Status: Ordered Lasix 40 mg oral tablet 40 mg, 1, tablet, By Mouth, 2 times a day, # 6 tablet, Refills 0, Tot. Refills 0, Maintenance, 08/28/22 14:56:00 EST, Route to Pharmacy Electronically, [facility], Partial fill upon patient request [...] Refills, Maintenance, 08/28/22 14:56:00 EST, ER Tablet, [facility], Partial fill upon patient request if the prescription is for a schedule II opioid drug., 186, cm, 08/28/22 12:... Start Date: 08/28/22 Stop Date: 08/31/22 Status: Ordered tamsulosin 0.4 mg oral capsule 0.4 mg, 1, capsule, By Mouth, Daily, # 30 capsule, Refills 0, Tot. Refills 0, Maintenance, 08/28/2214:56:00 EST, Route to Pharmacy Electronically, [facility], Partial fill upon patientrequest if [...] artery disease Confirmed Active Hypertension Confirmed Active Results Radiology Reports * Exam Date Time Procedure Performing Provider Status 08/24/22 5:59 AM Chest Portable Govind Kramer; Auth (Verified) Notes: (Chest Portable) Reason For Exam: S/P Cardiac Surgery RESULT: Chest Portable Chest Portable Reason: S P Cardiac Surgery; Clinical Question(s): Other:; Cardiac Tamponade; Special Instructions:Post Op Day 1 COMPARISON: 08/23/2022. FINDINGS: LINES AND TUBES: Endotracheal and enteric tubes removed. Right adjacent venous catheter tip SVC with coaxial introducer, unchanged. Paramedian drain and bilateral pleural tubes/drains unchanged. LUNGS AND PLEURA: Right lung unchanged and remains clear except for minor basilar atelectasis. Increasing retrocardiac density at the left base now mostly obscures left hemidiaphragm. New small left pleural effusion. The central pulmonary vessels are slightly prominent but remain well-defined.No overt pulmonary edema. No pleural effusion. No pneumothorax. HEART, MEDIASTINUM AND SHAY: Mild prominence of the cardiac silhouette, unchanged. Epicardial pacing wires remain. Normal mediastinal and hilar contour. BONES AND SOFT TISSUES: No acute abnormality. Median sternotomy. IMPRESSION: Endotracheal and enteric tubes removed. Increasing left base opacity consistent with atelectasis and pleural fluid. Cannot exclude mild infiltrate. Mild central vascular prominence slightly more evident on the left, without overt edema. WSN: [id number] Ordering Physician: Ismeal Zimmerman Dictated By: Niraj Rivera MD Dictated Date/Time: 08/24/22 10:02 a Reviewed By: Niraj Rivera MD Signed By: Niraj Rivera MD Signed Date/Time: 08/24/22 10:02 am Transcribed By: KIERRA Transcribed Date/Time: 08/24/22 9:55 am * Exam Date Time Procedure Performing Provider Status 08/23/22 2:13 PM Chest Portable Linda Montalvo; Au th (Verified) Notes: (Chest Portable) Reason For Exam: S/P Cardiac Surgery RESULT: Chest Portable Chest Portable Reason: S P Cardiac Surgery; Clinical Question(s): Other:; Cardiac Tamponade; Special Instructions:On Admission to [facility] COMPARISON: 12-25-15 FINDINGS: Endotracheal tube tip is approximately 6 cm above the melissa. Enteric tube tip in the stomach. Mediastinal drain. Left thoracostomy tube. Right mediastinal drain versus right thoracostomy tube. Right IJ central venous catheter tip projecting at the SVC. No acute cardiopulmonary process IMPRESSION: Support lines and tubes are outlined above. No acute cardiopulmonary process. WSN: [id number] Ordering Physician: Ismael Zimmerman Dictated By: Wilberto Darling MD Dictated Date/Time: 08/23/22 2:22 pm Reviewed By: Wilberto Darling MD Signed By: Wilberto Darling MD Signed Date/Time: 08/23/22 2:22 pm Transcribed By: KIERRA Transcribed Date/Time: 08/23/22 2:21 pm Vital Signs Most recent to oldest [Reference Range]: 1 2 3 Height 186 cm (08/28/22 12:12 PM) 186 cm (08/28/22 8:53 AM) 186 cm (08/28/22 4:38 AM) Weight 102.1 kg (08/28/22 4:35 AM) 104.0 kg (08/27/22 4:05 AM) 107.9 kg (08/26/22 4:00 AM) Oxygen Saturation [94-100 %] 94 % (08/28/22 12:12 PM) 95 % (08/28/22 8:53 AM) 98 % (08/28/22 4:38 AM) Pulse Rate [55-90 bpm] 80 bpm (08/28/22 12:12 PM) 53 bpm *L* (08/28/22 8:53 AM) 65 bpm (08/28/22 4:38 AM) Body Mass Index [18.5-24.99 kg/m2] 29.19 kg/m2 *H* (08/23/22 2:00 PM) 29.55 kg/m2 *H* (08/23/22 6:29 AM) Blood Pressure [90-138/55-84 mm Hg] 128/52mm Hg (08/28/22 12:12 PM) 113/52mm Hg (08/28/22 8:53 AM) 116/43mm Hg (08/28/22 4:38 AM) Respiratory Rate [16-30 br/min] 18 br/min (08/28/22 12:12 PM) 20 br/min (08/28/22 10:28 AM) 18 br/min (08/28/22 8:53 AM) Temperature [96.8-100.4 DegF] 98.6 DegF (08/28/22 12:12 PM) 98.3 DegF (08/28/22 8:53 AM) 98.0 DegF (08/28/22 4:38 AM) Liters per Minute 16 L/min (08/26/22 4:34 PM) 2 L/min (08/23/22 5:00 PM) 2 L/min (08/23/22 4:00 PM) Mode of Delivery (Oxygen) Room air (08/28/22 12:12 PM) Room air (08/28/22 8:53 AM) Room air (08/28/22 4:38 AM) Blood pressure sites Arm, left (08/28/22 12:12 PM) Arm, left (08/28/22 8:53 AM) Arm, left (08/28/22 4:38 AM) Temperature Route Oral (08/28/22 12:12 PM) Oral (08/28/22 8:53 AM) Oral (08/28/22 4:38 AM) Dry Weight 101 kg (08/23/22 2:00 PM) 101.6 kg (08/23/22 6:29 AM) Weight Obtained Via Bed scale (08/28/22 4:35 AM) Bed scale (08/25/22 4:13 AM) Dry Weight Obtained Via Standing scale (08/23/22 6:29 AM) History and physical note * Event Display: History and Physical Hospital Authored Date: * Nunu DILLARD, Augusto: PERFORM Event Display: History and Physical Hospital Authored Date: Patient: ??EMI DALY ? Age:??76 Years?Sex:??Male?:??1945? SURGICAL HISTORY AND PHYSICAL ?? DATE:?? 08/23/2022 ?? Chief Complaint/Reason for Consultation ?? cad History of Present Illness The patient is a??76-year-old male??with??PMH??of??HTN, HLD,??CAD s/p PCI OM, COPD, smoker, who presented with crescendo angina and progressive dyspnea on exertion for several weeks to months, worsening more recently. Outpatient stress test showed reversible ischemic defects.??Denies syncope, lightheadedness, visual changes, n/v, cough, orthopnea, muscle weakness, difficulty urinating or hematuria, no dark stools or melena.??Echo revealed normal EF, mild (mean 16 RINA 1.9), mild AI. He??underwent cardiac catheterization that??revealed??Severe??70% LAD lesion, 60% OM lesion, and several highgrade lesions along RCA and PDA. Cath aortic valve gradient peak was 23 mean 24. He is referred to me today to discuss possible coronary artery bypass grafting. ?? Review of Systems Constitutional:??No weight loss, fever, chills, weakness or fatigue. Allergy/Immune: Denies any??Eczema or hives Eyes:??No visual loss, blurred vision, double vision or yellow sclera ENT:??No hearing loss, sneezing, congestion, runny nose or sore throat. Respiratory:??No shortness of breath, cough or sputum production. Cardiovascular:??No chest pain, chest pressure or chest discomfort. No palpitations or pedal edema. Gastrointestinal:??No anorexia, nausea, vomiting or diarrhea. No abdominal pain or blood in stool. Genitourinary:??No burning micturition. No urinary frequency or incontinence. Neurologic:??No headache, dizziness, syncope, unilateral weakness, ataxia, numbness or tingling in the extremities. No change in bowel or bladder control. Musculoskeletal:??No muscle pain, back pain, joint pain or stiffness. Hematologic/Lymphatics:??No bleeding or bruising. No painful lymph nodes. Skin:??No rash or itching. Endocrine:??No reports of sweating. No cold or heat intolerance. No polyuria or polydipsia. Psychiatric:??No depression or anxiety. ?? Objective ?Vital Signs?Temperature: 97.4 DegF (08/11/22 09:30:00) ?Temperature Route: Temporal (08/11/22 09:30:00) ?Pulse Rate: 60 bpm (08/11/22 09:30:00) ?Heart Rate Monitored: 60 bpm (08/11/22 14:45:00) ?Respiratory Rate: 17 br/min (08/11/22 14:45:00) ?Systolic Blood Pressure: 111 mm Hg (08/11/22 14:45:00) ?Diastolic Blood Pressure: 56 mm Hg (08/11/22 14:45:00) ?Blood pressure sites: Arm, left (08/11/22 14:45:00) ?Mean Arterial Pressure: 79 mm Hg (08/11/22 09:30:00) ?Pulse Pressure: 55 mm Hg (08/11/22 14:45:00) ?Oxygen Saturation: 98 % (08/11/22 14:45:00) ?Mode of Delivery (Oxygen): Room air (08/11/22 14:45:00) ?Physical Exam ?CONST:??Appears stated age, no acute distress, alert and oriented X 3 ?EYES:??Anicteric, nl conjunctivae, EOM intact ?ENT:??Nl oropharynx ?NECK:??No evidence of JVD or HJR. Carotid impulses and upstroke normal bilaterally, no carotid bruits.?CV: S1/2,??Femoral pulses nl and symmetric, no femoral bruits.??No aortic pulsation or aortic bruits. ?RESP:??Normal respiratory effort,??clear to auscultation ?GI:??Soft, non-tender and non-distended, bowels sounds normoactive, no abdominal bruits ?EXT: no??lower extremity edema,??no clubbing,??no cyanosis ?SKIN:??No rash, skin warm and dry.?NEURO:?Alert and oriented x 3, CN 2-12 grossly intact? Assessment/Plan ??The patient is a??76??year old male who??presented??with??stable angina??found??recently on cardiac catheterization??to have multivessel coronary disease, currently chest pain free and hemodynamically stable and now is being evaluated for CABG. I reviewed in detail his cardiac catheterization and echocardiogram; he will likely benefit from??three-four??vessel CABG, namely VO-LAD, SVG-OM, PLV,possible PDA. Although his cath gradient for aortic valve is >20, recent echo showed mild , therefore he may not require AVR at this time. Will d/w Dr. Mayer and Buddhism and consider repeatingecho if concern for moderate or greater . I discussed with the patient, along with his partner, wilfredo schulz high risk nature of coronary artery surgical revascularization and answered all their questions today. At this time, the preoperative evaluation necessary includes??CT chest w/o contrast,??screening carotid duplex and bilateral lower extremity vein mapping.??Please obtain Hgb A1C laboratory value. I quoted him an overall risk of mortality between??1-2% based on his comorbidities, which I believe may be an underestimate due to his frailty. ??We discussed the nonfatal complications of surgical intervention??including myocardial infarction, stroke, infections, bleeding, multi-system organ failure, and prolonged ventilator dependence. We discussed the need for transfusions and its inherent risks.??Will plan for surgical revascularization in the near future his preoperative evaluation is complete.? Thank you for this referral. ? Augusto Eddy MD [facility] Cardiac Surgery?? [address], [address] [place] [address] Office: [phone] Histories Allergies Allergies ?(Active and Proposed Allergies Only) NKA? (Severity: Unknown severity, Onset: Unknown) ? Past Medical History/Problem List Active Problems??(3) COPD mixed type Coronary artery disease Hypertension ? Past Surgical History appendectomy ? Social History smoker ? Family History No family history??premature cad ? Medications Home Medications apremilast (Otezla 30 mg oral tablet)?1?tab(s)?30?Milligram?By Mouth?2 times a day Aspirin (aspirin 81 mg oral delayed release tablet)?81?Milligram?By Mouth?Daily Atorvastatin (atorvastatin 80 mg oral tablet)?80?Milligram?By Mouth?Daily at bedtime Cholecalciferol?1?tab(s)?By Mouth?Daily Isosorbide Mononitrate (Imdur 30 mg oral tablet, extended release)?30?Milligram?By Mouth?Daily Levothyroxine (Synthroid 0.125 mg oral tablet)?By Mouth?Daily Lisinopril (lisinopril 40 mg oral tablet)?1?tab(s)?40?Milligram?By Mouth?Daily Metoprolol (Toprol XL 50 mg oral tablet, extended release)?150?Milligram?By Mouth?Daily Multivitamin (Vitamin B Complex oral tablet, extended release)?By Mouth?Daily Nitroglycerin (nitroglycerin 0.4 mg sublingual tablet)?0.4?Milligram?Sublingual?Every 5minutes?as needed?Chest Pain Tamsulosin (Flomax 0.4 mg oral capsule)?0.4?Milligram?By Mouth?Daily ? Results Recent Labs BLOOD BANK Blood Type A Negative ()?? 08/11/2022 10:00 Antibody Screen Negative ()?? 08/11/2022 10:00 ?? BLOOD COUNT & DIFF WBC 9.8 k/mm3 ()?? 08/11/2022 10:01 RBC 4.04 m/mm3 (Low)?? 08/11/2022 10:01 Hgb 12.2 Gm/dL (Low)?? 08/11/2022 10:01 Hct 38.7 % (Low)?? 08/11/2022 10:01 MCV 95.8 femtoliters (High)?? 08/11/2022 10:01 MCH 30.2 pg ()?? 08/11/2022 10:01 MCHC 31.5 g/dL (Low)?? 08/11/2022 10:01 Platelet Count 302 k/mm3 ()?? 08/11/2022 10:01 RDW-SD 49.9 femtoliters (High)?? 08/11/2022 10:01 MPV 10.0 femtoliters ()?? 08/11/2022 10:01 Nucleated RBC (Automated) 0.0 #/100 WBC'S ()?? 08/11/2022 10:01 Abs. NRBC 0.0 k/mm3 ()?? 08/11/2022 10:01 ? Note * Event Display: Cardiac Rhythm Strips Authored Date: * Radha Dean RN: PERFORM Event Display: Discharge/Transfer Note Hospital Authored Date: [id number] Nursing Discharge Note Entered On: 08/28/2022 16:27 EST Performed On: 08/28/2022 16:26 EST by Radha Dean RN Nursing Discharge Note 2 Discharge Time : 08/28/2022 16:04 EST Discharge Level of Care at Discharge : Homehealth/VNA Discharge VNA/Hospice/Home Care([id number]) : [facility] Patient Left Unit Via : Wheelchair Patient Accompanied Off Unit with : Responsible adult DC Instructions Provided & Signed by Pt : Yes Patient Understands D/C Instructions : Yes Patient Instructions Discharge Signed : Yes Did Pt have Specialty Bed or Wound Vac : No Radha Dean RN - 08/28/2022 16:26 EST * Cindy Cornejo NP: MODIFY, SIGN, VERIFY, PERFORM Event Display: Discharge/Transfer Note Hospital Authored Date: [id number] Patient: EMI DALY Age: 76 years Sex: Male : 1945 Associated Diagnoses: None Author: Cindy Cornejo NP Discharge Information Chief Complaint/Reason for Admission chest discomfort Principal Discharge Diagnosis Coronary artery disease: Present on admission - yes. Patient is aware of diagnosis Procedures Cardiac Surgery: Coronary artery bypass grafting x3 with a pedicled left internal mammary artery graft to LAD, right greater saphenous vein graft to PDA, PLV, pedicled harvesting of the left internalmammary artery, endoscopic harvesting of the right greater saphenous vein, epiaortic ultrasound. Immunizations (Posting Range: 08/30/2012 0:00 EST - 08/28/2022 14:28 EST). Allergies Allergic Reactions (Selected) NKA Discharge condition: good Compared to admission: improved Functional Status: ambulatory Discharge Disposition Home: family. Home care with: VNA. Post Acute Care Transition : DISCHARGE STATUS 08/28/2022 12:01 EST Discharge Level of Care at Discharge Homehealth/VNA Discharge VNA/Hospice/Home Care [facility] Name of Agency #1 [facility] Service Categories #1 Physical Therapy, [facility] Service Comments #1 A referral has been made to [facility] to provide nursing and PT services at home. The agency will contact you to set up a visit. Please call [phone] if you do not hear from them within 24 hours of discharge. . Discharge Summary distribution: Route to attending, referring, and primary care provider. Route to: Tasneem Borja MD. Route to: Nunu DILLARD, [facility]. Discharge Date 08/28/2022 Admission Date 08/23/2022 Code Status Full Resuscitation. Draft of Summary Completed by: Cindy Cornejo NP. Case Management Discharge Plan : Case Management Discharge Plan Data 08/28/2022 12:01 EST Discharge Level of Care at Discharge Homehealth/VNA Discharge VNA/Hospice/Home Care [facility] Name of Agency #1 [facility] Service Categories #1 Physical Therapy, [facility] Service Comments #1 A referral has been made to [facility] to provide nursing and PT services at home. The agency will contact you to set up a visit. Please call [phone] if you do not hear from them within 24 hours of discharge. Hospital Course Typed narrative >The patient is a 76-year-old male with PMH of HTN, HLD, CAD s/p PCI OM, COPD, smoker, who presented with crescendo angina and progressive dyspnea on exertion for several weeks to months, worsening more recently. Outpatient stress test showed reversible ischemic defects. Echo revealed normal EF,mild (mean 16 RINA 1.9), mild AI. He underwent cardiac catheterization that revealed Severe 70% LAD lesion iFR positive, 60% OM lesion iFR negative, and several high grade lesions along RCA and PDA. The patient presents today for coronary artery bypass grafting. On 08/23/22 he underwent the following; PROCEDURE: Coronary artery bypass grafting x3 with a pedicled left internal mammary artery graft toLAD, right greater saphenous vein graft to PDA, PLV, pedicled harvesting of the left internal mammary artery, endoscopic harvesting of the right greater saphenous vein, epiaortic ultrasound SURGEON: Augusto Eddy M.D. MANAGEMENT SCIENTIST: Ismael SALDAÑA (The PA was my digital marketing assistant who actively participated in all phases of the CABG operation along with the construction of coronary grafts and closure) (vein harvester) Issues addressed during the post operative period are summarized below: PMH: HTN, HLD, COPD, CAD s/p PCI to OM Cardiac Surgeon: Su Tour Production Supervisor: Buddhism POD # 5 S/P CABG x 3 The patient is a 76-year-old male with PMH of HTN, HLD, CAD s/p PCI OM, COPD, smoker, who presentedwith crescendo angina and progressive dyspnea on exertion for several weeks to months, worsening more recently. Echo revealed normal EF, mild (mean 16 RINA 1.9), mild AI. He underwent cardiac catheterization that revealed Severe 70% LAD lesion, 60% OM lesion, and several high grade lesions along RCA and PDA. Patient was taken for CABG x3 on 08/23/2022 PLAN BY Problem Acute post-operative pain - Neurologically intact. - Avoid benzos/anticholinergics - Pain management: - Multimodal therapy: APAP 975 mg po q6 hours scheduled, denies pain CAD/HTN/HLD: Post-operative cardioplegia: - Aspirin 81 mg daily - Atorvastatin 80 mg - Metoprolol 25 mg BID - Holding home isosorbide mononitrate, lisinopril consider restarting as outpt. - Atrial fibrillation ppx: Amiodarone - Echo: EF 60% Did not have acute respiratory failure. he was extubated as expected post- operatively with no complications Nicotine dependance, recent cessation COPD - Patient extubated as expected post-operatively. - On room air - OOB to chair; aggressive pulm toileting Post-operative constipation: - Docusate/senna, suppository PRN - Tolerating PO diet, no nausea/vomiting - Bowel sounds present At risk for MONICA: - Baseline creatinine: 0.8 creat today 0.9 - Nephro check: low risk - Lasix 40 mg PO BID for 3 more days he is almost at his dry weight and has a normal ef. Leukocytosis, resolved: - WBC: 7 - Afebrile. Incisions without evidence of infection - SCIP prophylactic antibiotics: Cefazolin completed . Acute blood loss anemia secondary to cardiothoracic surgery - Accept H+H >/ - Today: 6.9/19.4 asymptomatic, denies lethargy, weakness, sob, dizziness, vss. hold off on transfusion continue to monitor closely. Stress hyperglycemia: pt does not have insulin dependent diabetes Hypothyroidism: - Continue home levothyroxine 175 mcg alternating with 150 mcg - A1c: 5.9% - Cardiac surgery insulin protocol post-op - Transitioned to basal bolus insulin - POC AC/HS while inpatient - Plan to discontinue all insulin at discharge DVT Prophylaxis: Lovenox SQ. TEDs to continue until at pre-operative activity level Stress Ulcer PPX: Pantoprazole 40 mg daily Significant Results Results: Vital signs : VITAL SIGNS SECTION 08/28/2022 12:12 EST Temperature 98.6 DegF Temperature Route Oral Pulse Rate 80 bpm Respiratory Rate 18 br/min Systolic Blood Pressure 128 mm Hg Diastolic Blood Pressure 52 mm Hg L Blood pressure sites Arm, left Mean Arterial Pressure 77 mm Hg Pulse Pressure 76 mm Hg Oxygen Saturation 94 % Mode of Delivery (Oxygen) Room air , Laboratory 08/28/2022 6:18 EST WBC 6.8 k/mm3 RBC 2.22 m/mm3 L Hgb 6.9 Gm/dL L Hct 21.3 % L MCV 95.9 femtoliters H MCH 31.1 pg MCHC 32.4 g/dL L Platelet Count 241 k/mm3 RDW-SD 49.5 femtoliters H MPV 9.8 femtoliters Nucleated RBC (Automated) 0.0 #/100 WBC'S Abs. NRBC 0.0 k/mm3 Sodium 142 mmol/L Potassium 3.4 mmol/L L Chloride 100 mmol/L Bicarbonate Level 32 mmol/L H Anion Gap 10 BUN 15 mg/dL Creatinine-Blood 0.9 mg/dL Estimated GFR Creatinine 91 ML/MIN/1.73 M2 Magnesium 1.8 mg/dL , Imaging : RADIOLOGY 08/24/2022 5:59 EST Chest Portable Chest Portable 08/23/2022 14:13 EST Chest Portable Chest Portable . 30 minutes spent on discharge Discharge Plan Diet/Activity/Patient Education/Follow Up Follow Up with: [facility] Cardiac Rehabilitation [facility] will call you with an appointement for Cardiac Rehab; Tasneem Borja Within 2 to 5 weeks Please call for appointment ; [place] Within 2 to 5 weeks Please call for appointment ; Augusto Eddy Within 1 to 2 weeks Office will call you with appointment . Discharge Disposition Discharge: home with VNA. Home Health Face to Face I certify that this patient is under my care and that I or an allowed non- physician practitioner working with me, had a [id number] encounter with the patient on this date: 08/28/2022. The encounter with the patient was in whole, or in part, for the following medical condition, whichis the primary reason for home health care: Coronary artery disease, CABG. Nursing: Medication management (reconciliation, teaching), Chronic disease management, Wound care and treatment, Patient requires detention for; Cardio pulmonary assessement Sternal wound assessment monitor for infection, any drainage or reddness call cardiac surgeon office Vital signs, if fever . 101, HR < 50 or sbp < 90 call cardiac surgeon office. Weight; if greater than or less than three pounds in one day or 5 pounds in a week call cardiac surgeon office telehealth. Physical Therapy: Home exercise program to strengthen, increase ROM. Homebound due to: Pain, decreased strength, and endurance, ambulates limited distance due to decreased endurance secondary to cardiac surgery, may only leave house for mandatory physician appointments; may not drive. Physician Signature: Nunu DILLARD [facility] . MEDICATION LIST (Selected) Prescriptions Prescribed Lasix 40 mg oral tablet: 40 mg, 1, tablet, By Mouth, 2 times a day, # 6 tablet, Refills 0, Tot. Refills 0, Maintenance, 08/28/22 14:56:00 EST, Route to Pharmacy Electronically, [facility], Partial fill upon patient request if the prescription is for a schedule I... acetaminophen 325 mg oral tablet: 975 mg, By Mouth, Every 6 hours, for 3 days, # 36 tablet, Refills0, Tot. Refills 0, Acute 08/31/22 14:55:00 EST, 08/28/22 14:55:00 EST, Route to Pharmacy Electronically, [facility], Partial fill upon patient request if the prescription... amiodarone 200 mg oral tablet: 200 mg, 1, tablet, By Mouth, 2 times a day, # 60 tablet, Refills 0, Tot. Refills 0, Maintenance, 08/28/22 14:55:00 EST, Route to Pharmacy Electronically, [facility], Partial fill upon patient request if the prescription is for a schedule... atorvastatin 80 mg oral tablet: = 80 mg, By Mouth, Daily at bedtime, # 30 tablet, 11 Refills, Maintenance, Tablet, Print Requisition clopidogrel 75 mg oral tablet: 75 mg, 1, tablet, By Mouth, Daily, # 30 tablet, Refills 0, Tot. Refills 0, Maintenance, 08/28/22 14:55:00 EST, Route to Pharmacy Electronically, [facility], Partial fill upon patient request if the prescription is for a schedule II opioi... docusate-senna 50 mg-187 mg oral tablet: 1 tablet, By Mouth, Daily, # 30 tablet, 0 Refills, Acute 09/25/22 14:57:00 EST, 08/28/22 14:56:00 EST, Tablet, [facility], Partial fill upon patient request if the prescription is for a schedule II opioid drug., 1 tablet By Mouth Daily,... ferrous sulfate 325 mg oral enteric coated tablet: 325 mg, 1, tablet, By Mouth, Daily, # 30 tablet,Refills 0, Tot. Refills 0, Maintenance, 08/28/22 14:56:00 EST, Route to Pharmacy Electronically, [facility], Partial fill upon patient request if the prescription is for a schedule II opio... potassium chloride 10 mEq oral tablet, extended release: 2 tablet = 20 mEq, By Mouth, 2 times a day, # 12 tablet, 0 Refills, Maintenance, 08/28/22 14:56:00 EST, ER Tablet, [facility], Partial fill upon patient request if the prescription is for a schedule II opioid drug., 186, cm, 08/28/22 12:... tamsulosin 0.4 mg oral capsule: 0.4 mg, 1, capsule, By Mouth, Daily, # 30 capsule, Refills 0, Tot. Refills 0, Maintenance, 08/28/22 14:56:00 EST, Route to Pharmacy Electronically, [facility], Partial fill upon patient request if the prescription is for a schedule II op... Documented Medications Documented Cholecalciferol: = 1,000 units, By Mouth, Daily, 0 Refills, Maintenance, 08/11/22 10:25:00 EST, Partial fill upon patient request if the prescription is for a schedule II opioid drug. Otezla 30 mg oral tablet: 1 tablet = 30 mg, By Mouth, 2 times a day, 0 Refills, Maintenance, 08/11/22 10:14:00 EST, Partial fill upon patient request if the prescription is for a schedule II opioid drug. Toprol XL 50 mg oral tablet, extended release: 50 mg, 1, tablet, By Mouth, Daily, Refills 0, Maintenance, 01/26/16 16:25:47 EDT aspirin 81 mg oral delayed release tablet: 81 mg, By Mouth, Daily, Refills 0, Maintenance, 01/26/1616:24:29 cyanocobalamin 1000 mcg oral tablet: 1,000 mcg, 1, tablet, By Mouth, Daily, # 30 tablet, Refills 0,Maintenance, 08/14/22 10:44:00 EST, Partial fill upon patient request if the prescription is for a schedule II opioid drug. levothyroxine 150 mcg (0.15 mg) oral tablet: 1 tablet = 150 mcg, By Mouth, Every other day, Alternate with 175mcg dose, # 30 tablet, 0 Refills, Maintenance, 08/14/22 10:52:00 EST, Tablet, Partial fill upon patient request if the prescription is for a schedule II opioid drug. levothyroxine 175 mcg (0.175 mg) oral tablet: 1 tablet = 175 mcg, By Mouth, Every other day, Alternate with 150mcg dose, # 30 tablet, 0 Refills, Maintenance, 08/14/22 10:51:00 EST, Tablet, Partial fill upon patient request if the prescription is for a schedule II opioid drug. Therapies Wound care: May take shower; do not apply lotions or perfumed soap to surgical wound; Pat dry do not rub wounds. Call Cardiac Surgeon Office for signs of infection which include fever, chills, reddness, pus like drainage or wound separation [phone] at any time for questions or concerns Weigh yourself daily at the same time of day, preferrably in the morning and record. If you gain orloose more than 3 pounds in 1 day or 5 pounds in one week, call the cardiac surgery office at [phone]. Smoking Cessation: Patient greater than or equal to 18 years Patient has not smoked in last 12 months. Weigh yourself daily at the same time of day, preferrably in the morning and record. If you gain orloose more than 3 pounds in 1 day or 5 pounds in one week, call the cardiac surgery office at [phone]. Prescription Given this visit:Prescriptions Acetaminophen (acetaminophen 325 mg oral tablet) 975 mg, By Mouth, Every 6 hours, # 36 tablet, 0 Refills, [facility], [address] [place] [address] [phone] Next Dose: Clopidogrel (clopidogrel 75 mg oral tablet) 1 tablet = 75 mg, By Mouth, Daily, # 30 tablet, 0 Refills, [facility], [address] [place] [address] [phone] Next Dose: Docusate-Senna (docusate-senna 50 mg-187 mg oral tablet) 1 tablet, By Mouth, Daily, # 30 tablet, 0 Refills, [address] [address] [phone] Next Dose: Ferrous Sulfate (ferrous sulfate 325 mg oral enteric coated tablet) 1 tablet = 325 mg, By Mouth, Daily, # 30 tablet, 0 Refills, [address] [address] [phone] Next Dose: Furosemide (Lasix 40 mg oral tablet) 1 tablet = 40 mg, By Mouth, 2 times a day, # 6 tablet, 0 Refills, [place] [address] [phone] Next Dose: Potassium Chloride (potassium chloride 10 mEq oral tablet, extended release) 2 tablet = 20 mEq, By Mouth, 2 times a day, # 12 tablet, 0 Refills, [place] [address] [phone] Next Dose: Tamsulosin (tamsulosin 0.4 mg oral capsule) 1 capsule = 0.4 mg, By Mouth, Daily, # 30 capsule, 0 Refills, [address] [address] [phone] Next Dose: amiODARONE (amiodarone 200 mg oral tablet) 1 tablet = 200 mg, By Mouth, 2 times a day, # 60 tablet, 0 Refills, [place] [address] [phone] Next Dose: Patient Instructions Given:No qualifying data available Education Given:Cardiac Surgery Discharge Instructions Patient Follow-up:Added Follow Up Time Frame Comments Augusto Eddy 1 to 2 weeks Office will call you with appointment [place] 2 to 5 weeks Please call for appointment Tasneem Borja 2 to 5 weeks Please call for appointment [facility] Cardiac Rehabilitation [facility] will call you with an appointement for Cardiac Rehab * Tatum Romo RN: PERFORM Event Display: Patient Education/Instruction Authored Date: [id number] Inpatient Adult Discharge Instructions [address] [address] Name: EMI DALY : 1945 Visit: 08/23/2022 05:44:00 Current Date: 08/28/2022 15:06 Account: [id number] Inpatient Adult Discharge Instructions We would like to thank you for allowing us to assist you with your healthcare needs. The following includes patient education materials and information regarding your injury/illness. Our entire staffstrives to provide an excellent experience for our patients and their families. PLEASE ENSURE YOU FOLLOW-UP PER THE INSTRUCTIONS BELOW! ?? YOUR OPINION IS IMPORTANT TO US! Please complete the survey you may receive by mail or email. Your feedback will be used to make improvements to the healthcare experiences of our patients and their families. Surveys are administered by [employer]. ?? If further treatment with your primary care physician or another doctor is recommended, it is important for you to keep the appointment. Call your primary care physician or return to the Emergency Department immediately if your condition worsens, fails to improve, or new symptoms develop. If you need to find a doctor, you can call [facility] for a referral at [phone] or toll free at [phone] or log in to [email or web address] ?? You can view and manage your care through the patient portal or by using a health care tung of your choosing. [employer] is a website that allows you to securely view your medical information including your hospital discharge summary, office visit summaries, medications and follow-up visits. You can also request appointments, renew medications, and request access to your medical information using a health care tung of your choosing, or just ask a question. You can enroll at [email or web address] or register during your next office visit. You have been discharged from [facility], Patient Care Unit: M6. If you have any questions regarding these instructions after you leave, please call us and we will be happy to assist you. [facility] Your Care Team Attending Physician Augusto Eddy MD Discharging Providers Cnidy Cornejo NP Reason for Admission AORTIC STENOSIS,CABG,LIMAHV2 MARA ARRIVAL 530AM Your Diagnosis Coronary artery disease Tests Performed Below is a partial list of the tests performed during your hospitalization. You may have had other tests and procedures not included in this list. Please discuss all test results with your provider. ABG POC CARTRIDGE BASE EXCESS POC CARTRIDGE BUN CALCIUM IONIZED POC CART CBC CBC w/ Differential COVID-19 (NOVEL CORONAVIRUS) PCR Creatinine Electrolytes Glucose Level GLUCOSE POC GLUCOSE POC CARTRIDGE HEMATOCRIT POC CARTRIDGE HEMOGLOBIN POC CARTRIDGE Hgb + Hct INR Ionized Calcium Magnesium Level Nephro Check Platelet Count Potassium Level POTASSIUM POC CARTRIDGE PTT SODIUM POC CARTRIDGE Thyroid Panel Type and Screen VBG POC CARTRIDGE XR Chest Portable Primary Care Provider Jonh DILLARD, Tasneem Steiner Advance Directive Health Care Proxy on File Yes - Health Care Proxy Caregiver Relationship: Spouse Patient has a Designated Caregiver: Yes Discharge Vitals Temperature: 98.6 DegF Height: 186 cm Pulse Rate: 80 bpm Weight: 102.1 kg Respiratory Rate: 18 br/min Body Mass Index:??29.19 kg/m2??High Systolic Blood Pressure: 128 mm Hg Body surface area: 2.28 Diastolic Blood Pressure:??52 mm Hg??Low ?? Oxygen Saturation: 94 % ?? Studies Pending All tests and labs ordered during this hospital stay have been completed unless listed below. Please discuss all pending results with your provider listed above in these instructions. ?? BUN CBC COVID-19 (2019 Novel Coronavirus) PCR Creatinine Electrolytes Magnesium Level Type and Screen What to do next Instructions From Your Doctor Discharge Orders You Need to Schedule the Following Appointments Follow Up with??Augusto Eddy When??Within 1 to 2 weeks Why: Office will call you with appointment Where: [address] [place] [address] [address] [facility] [place] [place] [address]- Business (1) Follow Up with??[place] When??Within 2 to 5 weeks Why: Please call for appointment Where: [address] [place] [address]- Business (1) Follow Up with??Tasneem Borja When??Within 2 to 5 weeks Why: Please call for appointment Where: [address] [place], [place] [id number]- Business (1) Follow Up with??[facility] Cardiac Rehabilitation When?? Why: [facility] will call you with an appointement for Cardiac Rehab Discharge Medications EMI DALY :1945 Visit Date:08/23/2022 Medications: Please continue your medications until treatment is completed or stopped by your provider. Medications not listed below should be discontinued. Discuss any questions related to medications with your provider. What How Much When Instructions Next Dose New Acetaminophen (acetaminophen 325 mg oral tablet) 975 Milligram Oral Every 6 hours Duration: 3 Days Pickup at [place] [address] Tonight 12/5 @ 9 pm New amiODARONE (amiodarone 200 mg oral tablet) 1 tab(s) Oral Twice a day Pickup at [place] [address] Tonight 12 @ 9 pm New Clopidogrel (clopidogrel 75 mg oral tablet) 1 tab(s) Oral Daily Pickup at [place] [address] Tomorrow 6 @ 9 am New Docusate-Senna (docusate-senna 50 mg-187 mg oral tablet) 1 tab(s) Oral Daily Pickup at [place] [address] Tomorrow 126 @ 9 am New Ferrous Sulfate (ferrous sulfate 325 mg oral enteric coated tablet) 1 tab(s) Oral Daily Pickup at [place] [address] Tomorrow 126 @ 9 am New Furosemide (Lasix 40 mg oral tablet) 1 tab(s) Oral Twice a day Duration: 3 Days Pickup at [place] [address] Tomorrow 12/6 @ 7 am New Potassium Chloride (potassium chloride 10 mEq oral tablet, extended release) 2 tab(s) Oral Twice a day Duration: 3 Days Pickup at [place] [address] Tomorrow 126 @ 9 am New Tamsulosin (tamsulosin 0.4 mg oral capsule) 1 capsule Oral Daily Pickup at [place] [address] Tomorrow 126 @ 9 am Unchanged apremilast (Otezla 30 mg oral tablet) 1 tab(s) Oral Twice a day Tonight 12/5 @ 9 pm Unchanged Aspirin (aspirin 81 mg oral delayed release tablet) 81 Milligram Oral Daily Tomorrow 126 @ 9 am Unchanged Atorvastatin (atorvastatin 80 mg oral tablet) 80 Milligram Oral Daily at Bedtime Tonight 12/5 @ 9 pm Unchanged Cholecalciferol 1,000 unit(s) Oral Daily Tomorrow 126 @ 9 am Unchanged Cyanocobalamin (cyanocobalamin 1000 mcg oral tablet) 1 tab(s) Oral Daily Tomorrow 08/29 @ 9 am Unchanged Levothyroxine (levothyroxine 150 mcg (0.15 mg) oral tablet) 1 tab(s) Oral Every other day Alternate with 175mcg dose ?? As directed Unchanged Levothyroxine (levothyroxine 175 mcg (0.175 mg) oral tablet) 1 tab(s) Oral Every other day Alternate with 150mcg dose ?? As directed Unchanged Metoprolol (Toprol XL 50 mg oral tablet, extended release) 1 tab(s) Oral Daily Tomorrow 08/29 @ 9 am Pharmacy Information [facility]: [address], [place] [id number] [phone] ?? What How Much When Comments Stop Taking Isosorbide Mononitrate (Imdur 30 mg oral tablet, extended release) 30 Milligram Oral Daily Stop Taking Lisinopril (lisinopril 40 mg oral tablet) 1 tab(s) Oral Daily Stop Taking Nitroglycerin (nitroglycerin 0.4 mg sublingual tablet) 0.4 Milligram Sublingual Every 5 minutes as needed for Chest Pain Test Results Below is a partial list of the most recent Laboratory test results done prior to this discharge. You may have had other tests and procedures not included in this list. Please discuss all test resultswith your provider. RBC Available - RE (08/23/2022) RBC Unit ID - [id number] (08/23/2022) ABG POC CARTRIDGE (08/24/2022) ???pH (POC) POC Cartridge - 7.42???pCO2 (POC) POC Cartridge - 37.1 mm Hg???pO2 (POC) POC Cartridge - 60 mm Hg???Estimated Bicarbonate (POC) POC Cart - 24.0 mmol/L???% O2 Sat Arterial (POC) POC Cartridge - 91 %???Specimen Type - Blood Gas - ARTERIAL BASE EXCESS POC CARTRIDGE (08/24/2022) ???Base Excess (POC) POC Cartridge - NEGATIVE 1 BUN (08/28/2022) ???BUN - 15 mg/dL CALCIUM IONIZED POC CART (08/24/2022) ???Ionized Calcium (POC) POC Cartridge - 1.18 mmol/L CBC (08/28/2022) ???WBC - 6.8 k/mm3???RBC - 2.22 m/mm3???Hgb - 6.9 Gm/dL???Hct - 21.3 %???MCV - 95.9 femtoliters???MCH - 31.1 pg???MCHC - 32.4 g/dL???Platelet Count - 241 k/mm3???RDW-SD - 49.5 femtoliters???MPV - 9.8femtoliters???Nucleated RBC (Automated) - 0.0 #/100 WBC'S???Abs. NRBC - 0.0 k/mm3 CBC w/ Differential (08/25/2022) ???WBC - 13.0 k/mm3???RBC - 2.28 m/mm3???Hgb - 7.0 Gm/dL???Hct - 21.9 %???MCV - 96.1 femtoliters???MCH - 30.7 pg???MCHC - 32.0 g/dL???Platelet Count - 147 k/mm3???RDW-SD - 50.4 femtoliters???MPV - 9.9 femtoliters???Nucleated RBC (Automated) - 0.0 #/100 WBC'S???Abs. NRBC - 0.0 k/mm3???Abs. Neut - 9.5 k/mm3???Abs. Lymph - 0.8 k/mm3???Abs. [place] - 2.6 k/mm3???Abs. Eo - 0.0 k/mm3???Abs. Baso - 0.0 k/mm3???Neut % - 73.2 %???Lymph % - 6.1 %???[place] % - 19.8 %???Eos % - 0.2 %???Baso % - 0.2 %???Imm Gran- 0.5 %???Abs. Imm Gran - 0.1 k/mm3 COVID-19 (NOVEL CORONAVIRUS) PCR (08/24/2022) ???COVID-19 PCR Specimen Source - NASAL???COVID-19 PCR Result - NEGATIVE Creatinine (08/28/2022) ???Creatinine-Blood - 0.9 mg/dL???Estimated GFR Creatinine - 91 ML/MIN/1.73 M2 Electrolytes (08/28/2022) ???Sodium - 142 mmol/L???Potassium - 3.4 mmol/L???Chloride - 100 mmol/L???Bicarbonate Level - 32 mmol/L???Anion Gap - 10 Glucose Level (08/25/2022) ???Glucose Level - 127 mg/dL GLUCOSE POC (08/28/2022) ???Glucose, POC - 114 mg/dL GLUCOSE POC CARTRIDGE (08/24/2022) ???Glucose (POC) POC Cartridge - 123 HEMATOCRIT POC CARTRIDGE (08/24/2022) ???Hematocrit (POC) POC Cartridge - 20 % HEMOGLOBIN POC CARTRIDGE (08/24/2022) ???Hemoglobin (POC) POC Cartridge - 6.8 Gm/dL Hgb + Hct (08/23/2022) ???Hgb - 8.2 Gm/dL???Hct - 24.6 % INR (08/23/2022) ???INR - 1.3???Protime (PT) - 13.0 seconds Ionized Calcium (08/24/2022) ???Calcium, Ionized pH Corrected - 1.16 mmol/L Magnesium Level (08/28/2022) ???Magnesium - 1.8 mg/dL Nephro Check (08/24/2022) ???Acute Kidney Injury Risk Score - 0.21 Platelet Count (08/23/2022) ???Platelet Count - 226 k/mm3 Potassium Level (08/23/2022) ???Potassium - 4.8 mmol/L POTASSIUM POC CARTRIDGE (08/24/2022) ???Potassium (POC) POC Cartridge - 4.7 mmol/L PTT (08/23/2022) ???APTT - 31.4 seconds SODIUM POC CARTRIDGE (08/24/2022) ???Sodium (POC) POC Cartridge - 137 mmol/L Thyroid Panel (08/24/2022) ???TSH - 0.49 uIU/mL???Free T4 - 1.35 ng/dL Type and Screen (08/26/2022) ???Blood Type - A Negative???Antibody Screen - Negative VBG POC CARTRIDGE (08/23/2022) ???pH Venous (POC) POC Cartridge - 7.33???pCO2 Venous (POC) POC Cartridge - 39.7 mm Hg???pO2 Venous(POC) POC Cartridge - 168 mm Hg???Est Bicarbonate (POC) POC Cartridge - 21.0 mmol/L???% O2 Sat Venous (POC) POC Cartridge - 99???Specimen Type - Blood Gas - MIXED VENOUS Allergies (NKA means No Known Allergies) NKA Problems Active Problems??(3) COPD mixed type?? Coronary artery disease?? Hypertension?? Education Materials Below is the list of Educational Leaflet Providered with your Discharge Instructions. Cardiac Surgery Discharge Instructions?? Valuables and Belongings I fully understand and agree that [facility] accepts no responsibility for all my personal property including clothing, toilet articles, radios, jewelry, dentures, hearing aids, rings, money, or any other property that is in my possession or is brought to me after admission. I understand certain valuables may be placed in a hospital safe for a short period of time. I understand that the hospital is not liable for loss or damage due to accident, fire, or other natural occurrence while said property is in the safe. I accept full responsibility for any personal property that I keep with me, and will not hold the hospital responsible in case of loss or disappearance. I acknowledge that i have been encouraged to send valuables and belongings home. ?? Date for Pt to Sign Valuables/Belongings: 08/23/22 06:29:00 ?? Valuables & Belongings ?? Clothes Electronic devices Jewelry Monetary Items Personal devices Miscellaneous Medications (Valuables) Valuables at Bedside Pants, Shirt, Shoes, Undergarments ? Dentures, full ? Valuables Sent Home ? Valuables Sent to Security ? Other Discharge Information ?? Wound Assessment?? Wound Assessment?? Surgical Incision Type I: Surgical ?? Case Management Discharge Plan?? Discharge Plan?? Discharge Agency Information?? Discharge Level of Care at Discharge: Homehealth/VNA Name of Agency #1: [facility] Discharge Rx Program: Discharge Prescription Program Service Categories #1: Physical Therapy, [facility] Discharge Rx Program: Discharge Prescription Program Service Comments #1: A referral has been made to [facility] to provide nursing and PT services at home. ??The agency will contact you to set up a visit. ??Please call [phone] if you donot hear from them within 24 hours of discharge. Discharge VNA/Hospice/Home Care: [facility] ? Pulmonary Rehab Status?? Pulmonary Rehab Discharge Status?? Respiratory Rate: 18 br/min PEEP: 5 ? Cardiac Rehab Assessment?? Cardiac Rehab Inpatient Assessment?? Comments-Education: CABG EDUCATIONHEART BOOK Comments-Smoking Cessation: Quit Smoking in September 2015 Comments-Exercise Activity: IS, ROM AND AMB Comments-Nutrition: PER RD Comments-Lipids: PENDING Comments-Other plan of care: PHASE 2 CARDIAC REHAB 4 WEEKS AT [facility] Awareness Tips IS IT A STROKE? Act FAST and Check for these signs: FACE Does the face look uneven? ARM Does one arm drift down? SPEECH Does their speech sound strange? TIME Call at any sign of stroke ?? Heart Attack Signs Chest discomfort: Most heart attacks involve discomfort in the center of the chest and lasts more than a few minutes, or goes away and comes back. It can feel like uncomfortable pressure, squeezing, fullness or pain. Discomfort in upper body: Symptoms can include pain or discomfort in one or both arms, back, neck, jaw or stomach. Shortness of breath: With or without discomfort. Other signs: Breaking out in a cold sweat, nausea, or lightheaded. Remember, MINUTES DO MATTER. If you experience any of these heart attack warning signs, call to get immediate medical attention! ?? Smoking can increase your chances of developing chronic health problems and can cause harmful effects to other family members in your house. If you smoke, you are strongly encouraged to quit. Please call [facility] [employer] at [phone] or [phone] or log in to [email or web address] for referrals to smoking cessation programs. ?? The National Suicide Prevention Hotline is available 16/04 if you or someone you know needs to find a reason to keep living. By calling 9-825-307-[employer] (0994) you'll be connected to a skilled, trained counselor at a crisis center in your area. INPATIENT DISCHARGE INSTRUCTIONS SIGNATURE PAGE EMI DALY Location:[facility] Registration Date and Time:08/23/2022 05:44 EST Primary Care Physician: Tasneem Borja MD, I EMI DALY, have received the above patient education materials/instructions and have verbalized understanding. If ambulance or transport services are being used I further acknowledge being given a choice of service. ?? If you need to contact me, please call me at this number: . Patient/Diabetes Trainer Name: Patient/Diabetes Trainer Signature: Relationship to Patient: Witness Name/Signature: Date: * Cindy Cornejo NP: PERFORM Cindy Cornejo NP: PERFORM, SIGN Cindy Cornejo NP: SIGN, VERIFY Cindy Cornejo NP: VERIFY Event Display: Patient Education Handout Authored Date: [id number] * Cindy Cornejo NP: PERFORM Event Display: Patient Education Leaflets Authored Date: [id number] Cardiac Surgery Discharge Instructions ?? 605 Patient Education Materials Cardiac Surgery Discharge Instructions ?? Here is information related to your condition to help you when you get home. ?? Call the Cardiac Surgery office if you experience any of the following: ??? Temperature of 101?? or above, chills, and or sweating. ??? Low grade fever of 99?? - 100?? lasting for a week. ??? Changes in breathing, chest pain, abnormal pain, dizziness, change in pulse, pulse rate or palpitations. ??? Worsening shortness of breath. ??? New onset nausea, vomiting or diarrhea. ??? If you experience any new rash, cough, dizziness, leg cramps, or blurred vision. ??? Any bleeding or swelling at the incision site or if a hard lump forms. ??? Any drainage, redness, tenderness or edges pulling apart at your surgical incision site. ??? A weight gain of more than 2-3 pounds in one day or 5 pounds in 1 week. ??? Worsening ankle swelling or leg pain ??? Pain in calf that beco mes worse when pointing toe up to head ??? Sharp pain when taking a deep breath ??? Urinary tract infection: frequent urination, burning with urination, or urgency to urinate. ??? Extreme Fatigue ?? Call 911 if: ??? You develop a new onset of weakness, numbness, loss of vision, slurred speech or any concern for a stroke or mini-stroke. ??? If you develop numbness, tingling, loss of sensation, and or coolnessto your arms or legs. ??? Fainting, confusion or disorientation. ??? Sudden, severe headache. ??? If you develop chest pain or discomfort that is not relieved with rest ??? If profuse bleeding (does not stop in 30 minutes) occurs, hold pressure to the site and call 911, do not drive yourself to [facility]. ??? Bright red color in your stool. ??? Coughing or vomiting up bright red blood.??? Heart rate faster than 150 beasts/minute with shortness of breath or new palpitations. ??? Severe abdominal pain ? ? Extreme weakness and/or chills often associated with fever >>01??. ?? Follow Up: A follow up appointment should be made with your doctor. If you do not have an appointment scheduled already, make an appointment when you get home. Follow up care is important; it is strongly encouraged for you to keep your appointment. You may have more than one appointment, one with your swimming coach or instructor and one with your primary care doctor and one with the cardiac surgeon. 1. Follow up with your Cardiac Surgeon???s Nurse Practitioner in 7 to 14 days or as directed. 2. Follow up with your Primary Care Provider in 2-5 weeks or as directed. 3. Follow up with your Primary Tour Production Supervisor in 2-5 weeks or as directed. 4. Cardiac Rehabilitation: You will be assisted in making arrangements at your 1-2 week follow-up appointment with a nurse practitioner in your surgeon???s office if an appointment has not been made for you prior to discharge. If you have any questions, please call the Cardiac Surgery office at [phone]. ?? Bathing: You can take a shower after you are discharged from the hospital. If you are unsteady on your feet use a shower chair. Do not soak in a tub until all scabs are gone from your incisions. You may need assistance with showering the first few days. ?? Incision Care: Look at your incision site (groin and/or chest wall) every day until it is completely healed. You may see bruising, which is common after the procedure. Check your incision daily for drainage, redness, increased tenderness or edges pulling apart. Keep your incision clean and dry. Use only soap and water to cleanse the area around the incision. Once the incision is healed you may wash over the incision with a soft wash cloth and soap and water. Avoid using perfumed soaps or body washes, lotions,creams, oils, or ointments on your incision. This may irritate your incision and put you at risk for infection. ?? Activity ??? Review the written materials given to you by the Cardiac Rehabilitation staff for your specificexercise program. ??? No heavy lifting over 10 pounds (gallon of milk) for 10 weeks following your surgery. ??? Gradually increase your activity. This will promote wound healing. Remember to alternate periods of activity with periods of rest. ??? It is important to continue to do the coughing and deep breathing exercises to help prevent breathing complications. ??? Use incentive spirometer 8 to 10 times hourly while awake for the first two weeks you are home. ??? Take your temperature every day. ??? Weigh yourself at the same time every morning. ??? Wear elastic stockings for four weeks afteryou return home. Put the stocking on in the morning and remove them at bedtime. ??? Female patientsshould wear a soft supportive bra without under wires to prevent breast from pulling on incision. ?? Driving ? You shouldn???t drive for at least 4 weeks from the date of discharge or if you are taking prescription pain medication. ? Always wear a seat belt. ?Diet ??? Use healthy cooking methods: Bake, Boil, Steam, Broil. ??? Eat mostly plant based diet; fruits and vegetables, whole grains and legumes (beans, peas and lentils). Include nuts and seeds in moderation. ??? Choose lean meats: skinless chicken/turkey breast, red meats with minimal marbling, greater than 90% lean ground meats. ??? Enjoy fish and seafood prepared healthfully twice a week or more. ??? Choose low fat dairy products. ??? Enjoy sweets in moderation. ??? Reduce sodium and salt intake. Use herbs and spices to flavor your food. Daily sodium intake should be less than 3000mg. ??? Avoid processed foods, fried foods and foods that contain trans-fat. ??? Daily protein intake goal is 80-110 grams. Smoking If you smoke, you are strongly encouraged to quit. Smoking can increase blood pressure, decrease exercise tolerance and increase the tendency for blood to clot, decrease HDL (good) cholesterol and creates a higher risk for having a heart attack, stroke or other vascular events. If you smoke and areready to quit, please let us know; referrals to smoking cessation programs are available. ?? Lowering your cholesterol Diet and exercise may not lower your cholesterol enough. Cholesterol medicines may help prevent further cholesterol build up in the arteries. Talk to your doctor about taking medicine for high cholesterol. ? High blood pressure and diabetes If you have high blood pressure or diabetes, continue with your prescribed treatments. These health problems, if not controlled can put you at risk for having a heart attack, stroke, or other vascular events. ?? Stress Learn to manage stress with ways that fit your needs. Some stress relieving activities include meditation, deep breathing techniques and exercise. Stress that isn???t managed can prolong healing and cause other health problems. Talk to your caregiver if you need additional resources to manage stress. ?? Feelings Y ou?? m ay?? als o?? b e?? i mp a t ie nt?? to?? r e turn?? to?? y our?? r eg u la r?? ac t nancy t ies , and may feel frustrated with your recovery. Remember??that??your??body??needs??time??to??heal.In fact,??healing??takes energy and depletes your??strength. You will??have??good??days??and??bad??d ays,??and??you??may??feel??depressed??and?? a n g r y?? a bout ho w l on g?? y our r ec o ve r y?? see m s to?? t a k e .?? Mayur k?? to?? y our fa m joaquín?? or?? f r ie nd s?? a bout?? y our f eeli n gs, a nd?? tr y?? to?? r e m e mb e r th a t?? y ou?? will?? ge t b e tt e r. As y ou ge t s tiffani ge r?? a nd?? mor e?? r es t e d,?? y ou?? will?? feel mor e?? po si t hannah?? a bout?? y our?? pro g r es s .?? On e way?? to?? av o i d?? f eeli n g?? d e pr esse d is to?? m ai nt ai n as norm al?? a rout ine??as??possible.??Get??up??at??your??usual??time??and??bathe??or?? s ho we r . Get dressed; don???t stay in your night clothes??all day.?? Ta k e?? a rest??in??the??morning??and??afternoon,??and??when??you?? feel?? t i r e d.?? Ge t?? a maggy???ssleep.Ifyourdepressiondoesn???t i mpro ve , t al k to y our do c tor. ?? Valve Surgery Instructions You will receive a booklet and card specific to the valve you received. This card should be carriedwith you at all times. Your doctor may prescribe an anticoagulant medication to prevent blood clotsthat could lead to a stroke. Your doctor may prescribe an antibiotic.?? This helps prevent infection that could scar and destroy your heart valve. Your will be instructed when to take this medication, such as before dental work, surgery, or medical procedures. ?? Please refer to the Understanding &&Preparing for Heart Surgery booklet. ?? If you are being discharged on Coumadin ??/warfarin, please refer to the H&& Anticoagulation Patient Education booklet. ?? Discharge Instruction Video ? * Event Display: Adult Preadmission Health Questionnaire Authored Date: EKG study * Event Display: EKG Authored Date: * Event Display: EKG Authored Date: * Event Display: EKG Authored Date: Hospital Progress note * Cindy Cornejo NP: PERFORM, SIGN, VERIFY Event Display: Progress Note Hospital Authored Date: Patient: EMI DALY Age: 76 years Sex: Male : 1945 Associated Diagnoses: None Author: Cindy Cornejo NP Surgery CABG Date 08/23/22 Post op day 4 Overnight Events & Current Issues SR anemia. h/h 6.9/19.4 asymptomatic, denies lethargy, sob, dizziness no transfusion indicated currently will monitor. Physical Examination Exam Neurological: alert, nonfocal. Pulmonary/Lungs: clear. Cardiovascular: S1, S2, NSR. Gastrointestinal: Abdomen (soft, non-tender, non-distended, bowel sounds present), Diet by mouth. Extremities: Pulses palpable, Edema 0. Surgical Wounds: Chest no signs of infection. Results Review Today's Results Weight Dry weight 101 Daily weight past 3 days : Weight 08/27/2022 4:05 EST Weight 104.0 kg 08/26/2022 4:00 EST Weight 107.9 kg 08/25/2022 4:13 EST Weight 108.7 kg 08/24/2022 5:00 EST Weight 108 kg LABORATORY 08/27/2022 8:33 EST WBC 7.7 k/mm3 RBC 2.17 m/mm3 L Hgb 6.8 Gm/dL L Hct 20.6 % L MCV 94.9 femtoliters H MCH 31.3 pg MCHC 33.0 g/dL Platelet Count 186 k/mm3 RDW-SD 49.1 femtoliters H MPV 10.2 femtoliters Nucleated RBC (Automated) 0.0 #/100 WBC'S Abs. NRBC 0.0 k/mm3 08/27/2022 4:06 EST WBC 7.1 k/mm3 RBC 2.03 m/mm3 L Hgb 6.4 Gm/dL C Hct 19.4 % C MCV 95.6 femtoliters H MCH 31.5 pg MCHC 33.0 g/dL Platelet Count 177 k/mm3 RDW-SD 49.5 femtoliters H MPV 10.1 femtoliters Nucleated RBC (Automated) 0.0 #/100 WBC'S Abs. NRBC 0.0 k/mm3 Sodium 139 mmol/L Potassium 3.7 mmol/L Chloride 101 mmol/L Bicarbonate Level 30 mmol/L H Anion Gap 8 BUN 17 mg/dL Creatinine-Blood 0.9 mg/dL Estimated GFR Creatinine 85 ML/MIN/1.73 M2 Magnesium 1.8 mg/dL CICU Vital Signs 08/27/2022 7:17 EST Temperature 98.3 DegF Temperature Route Oral Respiratory Rate 18 br/min Mode of Delivery (Oxygen) Room air Oxygen Saturation 95 % Systolic Blood Pressure 108 mm Hg Mean Arterial Pressure 72 mm Hg Diastolic Blood Pressure 54 mm Hg L Pulse Pressure 54 mm Hg MICU Cardiac Assessment 08/26/2022 20:17 EST Cardiac Rhythm Normal sinus rhythm CICU Respiratory Data 08/27/2022 7:17 EST Respiratory Rate 18 br/min Oxygen Saturation 95 % Mode of Delivery (Oxygen) Room air (Selected) Inpatient Medications Ordered Acetaminophen Tablet: 975 mg, Tablet, By Mouth, Every 6 hours, (scheduled) for mild pain, (May givevia NG tube), Routine, 08/24/22 20:00:00 EST Aspirin Tablet: 81 mg, EC Tablet, By Mouth, Daily, Hold for: Platelet count less than 60,000, Routine, 08/24/22 9:00:00 EST Bisacodyl Supp: 10 mg, Suppository, Rectally, Daily, if unable to take by mouth, PRN for Constipation, Routine, 08/26/22 9:00:00 EST Bisacodyl Tablet: 10 mg, EC Tablet, By Mouth, Daily, PRN for Constipation, Routine, 08/26/22 9:00:00 EST Clopidogrel Tablet: 75 mg, Tablet, By Mouth, Daily, Post CABG surgery, Hold for: Platelet Count less than 100,000, Routine, 08/24/22 9:00:00 EST Dextrose 50% Inj Syringe (25Gm): 12.5 Gm, Injection, IV Push Slowly, Every hour, (1 amp = 50 mL, 25Gm Dextrose), PRN for Blood Glucose, Less than 60 and CALL MD/TUNG, Routine, 08/24/22 14:01:00 EST Docusate/Senna Tablet: 2 tablet, Tablet, By Mouth, Daily, Hold for: loose stools and notify MD/TUNG,Routine, 08/24/22 9:00:00 EST Duoneb Inhalation Solution: 1 vials, Inhalation Solution, BAND Nebulizer, 4 times a day, Routine, 08/26/22 13:00:00 EST Enoxaparin Inj: 40 mg, Injection, Subcutaneous Injection, Daily, (DVT Prophylaxis) start on POD 1 if patient not bleeding, Hold for: platelets less than 100,000, Routine, 08/24/22 9:00:00 EST Flush NaCl 0.9%: 3 mL, Injection, IV Push, Every 8 hours, PRN for Other, For Peripheral Line to maintain Patency, Routine, 08/24/22 14:01:00 EST Flush NaCl 0.9%: 3 mL, Injection, IV Push, Every 8 hours, To Peripheral Line to Flush pre/post IV medications, Routine, 08/24/22 15:00:00 EST Insulin LISPRO Sliding Scale: 2-10 units, Injection, Subcutaneous Injection, 3 times a day before meals, Routine, 08/24/22 16:00:00 EST Lactulose Syrup: 30 mL, Syrup, By Mouth, Daily, Hold for bowel movement in past 24 hours, Notify MD/TUNG for loose stool, Routine, 08/25/22 9:00:00 EST Lasix 40 mg oral tablet: 40 mg, Tablet, By Mouth, 2 times a day, Routine, 08/26/22 9:00:00 EST Maalox Plus Liquid: 15 mL, Suspension, By Mouth, Every 6 hours, PRN for Dyspepsia, Routine, 08/24/22 14:01:00 EST Metoprolol IR Tablet: 25 mg, Tablet, By Mouth, 2 times a day, When extubated, HOLD for HR less than60 or SBP less than 100 or if on Vasopressors or Inotropes (May give via NG tube), STAT, 08/25/22 10:28:00 EST MiraLax Powder: 17 Gm, Powder, By Mouth, Daily, Dissolve in 8 ounces of water., Hold for: loose stools and notify MD/TUNG, Routine, 08/24/22 9:00:00 EST Ondansetron Inj: 4 mg, Injection, IV Push, Every 6 hours, PRN for Nausea & Vomiting, Notify MD/TUNG if given, Routine, 08/23/22 13:33:00 EST OxyCODONE IR Tablet: 2.5 mg, Tablet, By Mouth, Every 4 hours, (for use after extubation), PRN for Pain , Moderate, Routine, 08/23/22 13:33:00 EST OxyCODONE IR Tablet: 5 mg, Tablet, By Mouth, Every 4 hours, (for use after extubation), PRN for Pain , Severe, Routine, 08/23/22 13:33:00 EST Pantoprazole Tablet: 40 mg, EC Tablet, By Mouth, Daily, Indicated for: GERD, Routine, 08/23/22 13:33:00 EST amiODARONE Tablet: 200 mg, Tablet, By Mouth, 2 times a day, Start on POD 1, Hold for: HR less than 60, Routine, 08/24/22 9:00:00 EST atorvastatin 80 mg oral tablet: 80 mg, Tablet, By Mouth, Daily at bedtime, Routine, 08/23/22 21:00:00 EST levothyroxine 0.075 mg oral tablet: 150 mcg, Tablet, By Mouth, Every other day, Routine, 08/24/22 6:00:00 EST levothyroxine 0.175 mg oral tablet: 175 mcg, Tablet, By Mouth, Every other day, Routine, 08/25/22 7:00:00 EST tamsulosin 0.4 mg oral capsule: 0.4 mg, Capsule, By Mouth, Daily, SARIAH, 08/25/22 15:57:00 EST Impression and Plan PMH: HTN, HLD, COPD, CAD s/p PCI to OM Cardiac Surgeon: Su Tour Production Supervisor: Buddhism POD # 4 S/P CABG x 3 The patient is a 76-year-old male with PMH of HTN, HLD, CAD s/p PCI OM, COPD, smoker, who presentedwith crescendo angina and progressive dyspnea on exertion for several weeks to months, worsening more recently. Echo revealed normal EF, mild (mean 16 RINA 1.9), mild AI. He underwent cardiac catheterization that revealed Severe 70% LAD lesion, 60% OM lesion, and several high grade lesions along RCA and PDA. Patient was taken for CABG x3 on 08/23/2022 PLAN BY Problem Acute post-operative pain - Neurologically intact. - Avoid benzos/anticholinergics - Pain management: - Multimodal therapy: APAP 975 mg po q6 hours scheduled, denies pain CAD/HTN/HLD: Post-operative cardioplegia: - Aspirin 81 mg daily - Atorvastatin 80 mg - Metoprolol 25 mg BID - Holding home isosorbide mononitrate, lisinopril - Atrial fibrillation ppx: Amiodarone - Echo: EF 60% Acute respiratory failure secondary to surgery Nicotine dependance, recent cessation COPD - Patient extubated as expected post-operatively. - On room air - OOB to chair; aggressive pulm toileting Post-operative constipation: - Docusate/senna, suppository PRN - Tolerating PO diet, no nausea/vomiting - Bowel sounds present At risk for MONICA: - Baseline creatinine: 0.8 creat today 0.9 - Nephro check: low risk - Lasix 40 mg PO BID Leukocytosis, resolved: - WBC: 7 - Afebrile. Incisions without evidence of infection - SCIP prophylactic antibiotics: Cefazolin completed INTEGUMENTARY: - Keep sternal incision covered with Aquacel remove on POD # 5. . Acute blood loss anemia secondary to cardiothoracic surgery - Accept H+H >7/21 - Today: 6.9/19.4 asymptomatic, denies lethargy, weakness, sob, dizziness, vss. hold off on transfusion continue to monitor closely. Stress hyperglycemia: pt does not have insulin dependent diabetes Hypothyroidism: - Continue home levothyroxine 175 mcg alternating with 150 mcg - A1c: 5.9% - Cardiac surgery insulin protocol post-op - Transitioned to basal bolus insulin - POC AC/HS while inpatient - Plan to discontinue all insulin at discharge DVT Prophylaxis: Lovenox SQ. TEDs to continue until at pre-operative activity level Stress Ulcer PPX: Pantoprazole 40 mg daily Dispo: Home w/ services in 24-48h, Plan discussed with Dr. Denis * Lara Ruvalcaba RN: SIGN, MODIFY, SIGN, MODIFY, VERIFY, PERFORM, SIGN Event Display: Progress Note Hospital Authored Date: Patient: EMI DALY Age: 76 years Sex: Male : 1945 Associated Diagnoses: None Author: Lara Ruvalcaba RN Findings Problem Related to Alteration in Cardiac Function (new) : Alteration in Cardiac Function/new 08/25/2022 3:00 EST Alteration in Cardiac Status Related to Cardiac Surgery Goals & Outcomes, Cardiac Status Pt will resume/maintain adequate cardiac output, Pt will resume/maintain adequate hemodynamic status, Pt will resume/maintain adequate respiratory function, Pt will resume/maintain intact neuro function, Pt will maintain adequate GI/ function appropriate for pt, Pt will maintain adequate nutrition status, Pt/caregiver will state understanding of diagnosis, Pt/caregiver will state strategies to reduce risk factors, Pt will state understanding of cardiac surgery education Cardiac Interventions Implemented Assess/monitor cardiac status, Assess/monitor neuro status, Assess/monitor respiratory status, Assess for tolerance of IV infusions; verify rate & dose, Call/Report variances in ECG to provider, Document & Monitor O2 Sats; Administer O2 as ordered, If no bowel movement in 3 days activate bowel regime, Monitor & document daily weight, Monitor anticoagul ation values, Monitor ECG w/administration of antiarrhythmics (CO 13.420) BH Goals/Interventions, Cardiac Yes Cardiac, Problem Start 08/23/2022 15:31 Reviewed Plan with, Cardiac Status Patient Patient Progression, Cardiac Status Patient progressing according to plan . Narrative/Incidental pt alert and oriented x 3. vss. afebrile. ls dim. o2 sat on ra 96%. no sob noted. dsg to sternum c/d/i. pt up to bathroom voiding qs. monitor pattern NSR. safety maintained. call light within reach. will continue to monitor.. Discharge Information Pulmonary Rehab Discharge : Pulmonary Rehab Discharge Status 08/23/2022 14:23 EST PEEP 5 08/23/2022 13:52 EST PEEP 5 08/23/2022 13:40 EST PEEP 8 * Lara Ruvalcaba RN: PERFORM Event Display: Progress Note Hospital Authored Date: pt's H/H came back at 6.4/19.4 Dr. Oleary paged to inform. awaiting response. will continue to monitor. * Lara Ruvalcaba RN: PERFORM Event Display: Progress Note Hospital Authored Date: Dr Oleary called back to say to hold off for now and get a CBC in the morning. will continue to monitor. * Melly Davis: PERFORM, SIGN, VERIFY Event Display: Progress Note Hospital Authored Date: Patient: EMI DALY Age: 76 years Sex: Male : 1945 Associated Diagnoses: None Author: Melly Davis Surgery POD 3 CABG x 3 Date 08/23/22 Overnight Events & Current Issues No acute overnight events Continuing with BB 25 mg BID Lasix 40 mg PO BID Plan to walk today CT-, EW removed today H+H: 6.9/21.4 NSR, RA Physical Examination Neurological: alert, nonfocal. Pulmonary/Lungs: clear. Pulmonary/Lungs: clear. Cardiovascular: S1, S2. Gastrointestinal: Abdomen (soft, non-tender, bowel sounds present), Diet by mouth. Extremities: Pulses palpable, Edema trace. Surgical Wounds: Chest (dry and intact, no signs of infection), Extremities dry and intact. Results Review Today's Results Weight Dry weight 101 Daily weight past 3 days : Weight 08/26/2022 4:00 EST Weight 107.9 kg LABORATORY 08/26/2022 4:43 EST WBC 10.6 k/mm3 RBC 2.23 m/mm3 L Hgb 6.9 Gm/dL L Hct 21.4 % L MCV 96.0 femtoliters H MCH 30.9 pg MCHC 32.2 g/dL L Platelet Count 153 k/mm3 RDW-SD 50.0 femtoliters H MPV 10.0 femtoliters Nucleated RBC (Automated) 0.0 #/100 WBC'S Abs. NRBC 0.0 k/mm3 Sodium 137 mmol/L Potassium 4.1 mmol/L Chloride 102 mmol/L Bicarbonate Level 27 mmol/L Anion Gap 8 BUN 16 mg/dL Creatinine-Blood 0.8 mg/dL Estimated GFR Creatinine 93 ML/MIN/1.73 M2 Magnesium 1.8 mg/dL CICU Vital Signs 08/26/2022 11:26 EST Temperature 98.4 DegF Temperature Route Oral Respiratory Rate 18 br/min Mode of Delivery (Oxygen) Room air Oxygen Saturation 97 % Systolic Blood Pressure 117 mm Hg Mean Arterial Pressure 70 mm Hg Diastolic Blood Pressure 46 mm Hg L Pulse Pressure 71 mm Hg EKG Results Normal sinus rhythm Impression and Plan PMH: HTN, HLD, COPD, CAD s/p PCI to OM Cardiac Surgeon: Su Tour Production Supervisor: Buddhism POD # 3 S/P CABG x 3 The patient is a 76-year-old male with PMH of HTN, HLD, CAD s/p PCI OM, COPD, smoker, who presentedwith crescendo angina and progressive dyspnea on exertion for several weeks to months, worsening more recently. Echo revealed normal EF, mild (mean 16 RINA 1.9), mild AI. He underwent cardiac catheterization that revealed Severe 70% LAD lesion, 60% OM lesion, and several high grade lesions along RCA and PDA. Patient was taken for CABG x3 on 08/23/2022 PLAN BY Problem Acute post-operative pain - Neurologically intact. - Avoid benzos/anticholinergics - Pain management: - Multimodal therapy: APAP 975 mg po q6 hours scheduled, Baclofen, Gabapentin, Lidocaine and Oxycodone 5- 10 mg po q4 hours prn. CAD/HTN/HLD: Post-operative cardioplegia: - Aspirin 81 mg daily - Atorvastatin 80 mg - Metoprolol 25 mg BID to start when off pressors (anticipate start tonight) - Holding home isosorbide mononitrate, lisinopril - Atrial fibrillation ppx: Amiodarone - Echo: EF 60% Acute respiratory failure secondary to surgery Nicotine dependance, recent cessation COPD - Patient extubated as expected post-operatively. - On room air - CXR reviewed - OOB to chair; aggressive pulm toileting Post-operative constipation: - Docusate/senna, lactulose daily x 2 days, MiraLAX and suppository PRN - Tolerating PO diet, no nausea/vomiting - Bowel sounds present At risk for MONICA: - Baseline creatinine: 0.8 - NC: negative - S/P 4 liters IVF post-operatively - Lasix 40 mg PO BID Leukocytosis, resolved: - WBC: 8.3 - Possibly secondary to atelectasis, inflammation - Afebrile. Incisions without evidence of infection - SCIP prophylactic antibiotics: Cefazolin INTEGUMENTARY: - Keep sternal incision covered with Aquacel remove on POD # 5. - Graft harvest sites with yanet wrap- remove after 48 hours and every shift for inspection. - Radial graft harvest site with yanet wrap- remove after 48 hours and every shift for inspection. Acute blood loss anemia secondary to cardiothoracic surgery - Accept H+H >04/13 - Today: 04/14 Insulin-dependent diabetes mellitus: Hypothyroidism: - Continue home levothyroxine 175 mcg alternating with 150 mcg - Thyroid panel reviewed, no changes to medications - A1c: 5.9% - Cardiac surgery insulin protocol post-op - Transition to basal bolus insulin - POC AC/HS while inpatient - Plan to discontinue all insulin at discharge DVT Prophylaxis: Lovenox SQ. TEDs to continue until at pre-operative activity level Stress Ulcer PPX: Pantoprazole 40 mg daily Dispo: Home w/ services in 24-48h, EW removed today Plan discussed with rounding physician Deprecated Cardiac rehabilitation treatment plan Progress note and attainment of goals (narrative) * Brii HANNA, Cielo Moreno: PERFORM, SIGN, VERIFY Event Display: Cardiac Rehab Note Authored Date: Patient: EMI DALY Age: 76 years Sex: Male : 1945 Associated Diagnoses: None Author: Cielo Teresa RN Participated in multidisciplinary cardiac surgery rounds. Please see CIS for full plan of care. Page [phone] with questions. * Niraj Yao: VERIFY, PERFORM, SIGN Event Display: Cardiac Rehab Note Authored Date: Patient: EMI DALY Age: 76 years Sex: Male : 1945 Associated Diagnoses: None Author: Niraj Yao Diagnosis Cardiac Rehab Diagnosis: S/P CABG X3. Pre-exercise Vitals Vital Signs: 55 HR, 110/70 BP Sitting, 96% RA SaO2. Vital Signs Comment: Reviewed in [facility]IS, RN informed of Vital Sign changes. Pre-exercise Physical Examination Neurologic: alert & oriented. Cardiovascular: heart rate bradycardia. Lungs: Cough no. Activity Symptoms with Cardiac Rehab Symptoms: No exertional symptoms. Activity Transfers: independent, assistive device. Ambulate: independent, assistive device, distance ambulated 400 feet, Pt AMB Independently with walker in the halls 400 feet with a standby assist, HR 70's O2 RA 95%. Assistive Devices Assistive Device: Wheeled walker. Incentive Spirometry Incentive Spirometry: Good technique - effort. Post-exercise Vitals Vital Signs: 74 HR, 96% RA SaO2. Vital Signs Comment: Reviewed in [facility]IS, RN informed of Vital Sign changes. Post-exercise Physical Examination Neurologic: alert & oriented. Cardiovascular: heart rate regular. Lungs: Normal I:E, Cough no. Patient Education Education: Patient alone, Cardiac surgery booklet reviewed. Education topic Teachback comprehension 75% Topic: Medication education, Role of exercise, Home activity guidelines/limits, Post operative recovery guidelines. Reinforcement needed: Medication education, Role of exercise, Home activity guidelines/limits, Postoperative recovery guidelines. Recommendation and Plan Ambulate: 3 times/day, with assist of 1 , with assistive device. Encourage: Incentive spirometer, AROM. Outpatient follow up recommended: [facility], in 4 weeks. Cardiac Rehab: Will sign off at this time, Plan is for DC today. Recommendation comment: RN notified of plan. * Dimple Crespo: PERFORM, SIGN, VERIFY Event Display: Cardiac Rehab Note Authored Date: Patient: EMI DALY Age: 76 years Sex: Male : 1945 Associated Diagnoses: None Author: Serafincriss Nanoa Diagnosis Cardiac Rehab Diagnosis: CABG x 3. Pre-exercise Vitals Vital Signs: 84 HR. Vital Signs Comment: Reviewed in CIS. Pre-exercise Physical Examination Neurologic: alert & oriented. Cardiovascular: heart rate regular. Activity Symptoms with Cardiac Rehab Symptoms: tiredness. Activity Activity tolerance: Change in activity tolerance increased. Transfers: independent. Ambulate: independent, assistive device, distance ambulated 220 feet. Stairs: will try on 08/28/22. Activity comment: AROM. Assistive Devices Assistive Device: Wheeled walker. Incentive Spirometry Incentive Spirometry: Good technique - effort (500cc reinforced more use of the IS). Compliance problems: Compliance problems: diet, exercise, smoking cessation, was sneaking a few cigarettes while he was driving. . Patient Education Education: Family present (Life partner- Stephanie), Cardiac surgery booklet reviewed, Reinforced sternal precautions teaching/ cardiac rehab. He has gone in the past and looking forward to going back.. Topic: Medication education, Smoking cessation, Role of exercise, Post operative recovery guidelines. Reinforcement needed: Role of exercise, Post operative recovery guidelines. Recommendation and Plan Ambulate: 4 times/day, with assist of 1 , with assistive device. Encourage: Incentive spirometer, AROM, All education with family present. Patient may benefit from: Incentive spirometer, AROM, All education with family present. Outpatient follow up recommended: [facility], in 4 weeks, emailed on 08/25/22 . Cardiac Rehab: Will see on 08/28/2022 , Please contact us if we can provide further assistance with this patient, [phone]. Recommendation comment: RN notified of plan. Portable XR Chest Views * Suzy , CIS S: Niraj Madsen MD: VERIFY Event Display: Result: Authored Date: Chest Portable Reason: S P Cardiac Surgery; Clinical Question(s): Other:; Cardiac Tamponade; Special Instructions:Post Op Day 1 COMPARISON: 08/23/2022. FINDINGS: LINES AND TUBES: Endotracheal and enteric tubes removed. Right adjacent venous catheter tip SVC with coaxial introducer, unchanged. Paramedian drain and bilateral pleural tubes/drains unchanged. LUNGS AND PLEURA: Right lung unchanged and remains clear except for minor basilar atelectasis. Increasing retrocardiac density at the left base now mostly obscures left hemidiaphragm. New small left pleural effusion. The central pulmonary vessels are slightly prominent but remain well-defined.No overt pulmonary edema. No pleural effusion. No pneumothorax. HEART, MEDIASTINUM AND SHAY: Mild prominence of the cardiac silhouette, unchanged. Epicardial pacing wires remain. Normal mediastinal and hilar contour. BONES AND SOFT TISSUES: No acute abnormality. Median sternotomy. IMPRESSION: Endotracheal and enteric tubes removed. Increasing left base opacity consistent with atelectasis and pleural fluid. Cannot exclude mild infiltrate. Mild central vascular prominence slightly more evident on the left, without overt edema. WSN: [id number] Ordering Physician: Ismael Zimmerman Dictated By: Niraj Rivera MD Dictated Date/Time: 08/24/22 10:02 a Reviewed By: Niraj Rivera MD Signed By: Niraj Rivera MD Signed Date/Time: 08/24/22 10:02 am Transcribed By: KIERRA Transcribed Date/Time: 08/24/22 9:55 am * DORASPpraful , CIS S: TRANSCRIBE Wilberto Darling MD: VERIFY Event Display: Result: Authored Date: Chest Portable Reason: S P Cardiac Surgery; Clinical Question(s): Other:; Cardiac Tamponade; Special Instructions:On Admission to [facility] COMPARISON: 12-25-15 FINDINGS: Endotracheal tube tip is approximately 6 cm above the melissa. Enteric tube tip in the stomach. Mediastinal drain. Left thoracostomy tube. Right mediastinal drain versus right thoracostomy tube. Right IJ central venous catheter tip projecting at the SVC. No acute cardiopulmonary process IMPRESSION: Support lines and tubes are outlined above. No acute cardiopulmonary process. WSN: [id number] Ordering Physician: Ismael Zimmerman Dictated By: Wilberto Darling MD Dictated Date/Time: 08/23/22 2:22 pm Reviewed By: Wilberto Darling MD Signed By: Wilberto Darling MD Signed Date/Time: 08/23/22 2:22 pm Transcribed By: KIERRA Transcribed Date/Time: 08/23/22 2:21 pm Patient Care team information Care Team Personnel Name: Tasneem Borja MD Position: S Outreach Member Role: PCP Address: Address: [address] [place] [address] Name: Laura Roberts RN Position: [facility] RN Supv Member Role: Primary Care Nurse Care Team Related Persons Name: STEPHANIE RICO Address: [address] [address]
--- OUTSIDE RECORDS SUMMARY | 2023-04-16 13:34 | XMS_ITS | Continuity of Care Document ---
Author Name Unknown Organization [facility] Address [address] [place] [address]- Care Team Providers Care Channeler Runner Name Role Phone Jonh DILLARD, Tasneem Steiner Primary Care Physician Encounter [facility] Date(s): 07/07/22 - 08/06/22 [facility] [address] [place] [address]- [place] Allergies, Adverse Reactions, Alerts No Known Medication [...] Date: 06/17/21 Status: Ordered Problem List Condition Confirmation Course Effective Dates Status Health St [facility] Informant COPD mixed type Confirmed Active Coronary artery disease Confirmed Active Hypertension Confirmed Active Patient Care team information Care Team Personnel Name: Tasneem Borja MD Position: [facility] Outreach Member Role: PCP Address: Address: [address] [place] [phone]- Care Team Related Persons Name: ALYSHA RICO Address: home [address] [place] [address]
--- OUTSIDE RECORDS SUMMARY | 2023-04-16 13:34 | XMS_ITS | Continuity of Care Document ---
Author Name Unknown Organization [facility] Address [address] [place] [phone]- Care Team Providers Care Field Crop Harvest Worker Name Role Phone Tasneem Borja MD Primary Care Physician [place] [facility] [place] - 12/21/22 [facility] [address] [place] [address]- [place] Allergies, Adverse Reactions, Alerts No Known [...] 11/03/22 13:59:00 EST, Route to Pharmacy Electronically, [facility] 600[facility], 186, cm, 10/18/22 10:20:00 EST, Height, 101, [...] 11/30/22 8:41:00 EST, Route to Pharmacy Electronically, [facility] STORE 53477, 186, cm, 11/15/22 10:52:00 EST, Height, 101, kg, 08/23/22 15:54:00 EST, Dry Weight Start Date: 11/30/22 Status: Ordered Lasix 40 mg oral tablet 40 mg, 1, tablet, By Mouth, Daily, # 180 tablet, Refills 3, Tot. Refills 3, Maintenance, 10/24/22 7:50:00 EST, Route to Pharmacy Electronically, [facility]/pharmacy #[id number], Partial fill upon patient request if [...] Refills, Maintenance, 08/28/22 14:56:00 EST, ER Tablet, [facility], Partial fill upon patient request if [...] 11/30/22 8:41:00 EST, Route to Pharmacy Electronically, [facility]ORE 80482, 186, cm, 11/15/22 10:52:00 EST, Height, 101, [...] Team Personnel Name: Tasneem Borja MD Position: [facility] Outreach Member Role: PCP Address: Address: [address] [place] [address] Name: Laura Roberts RN Position: [facility] RN Supv Member Role: Primary Care Nurse Care Team Related Persons Name: ALYSHA RICO Address: [address] [address]
--- OUTSIDE RECORDS SUMMARY | 2023-04-16 13:34 | XMS_ITS | Continuity of Care Document ---
Author Name Unknown Organization [facility] Address [address] [place] [address]- Care Team Providers Care Property Economist Name Role Phone Tasneem Borja MD Primary Care Physician [place] [facility] [place] Date(s): 11/30/22 - 12/30/22 [facility] [address] [place] [address]- Attending Physician: Olivier Torrez Admitting Physician: Olivier [...] 11/03/22 13:59:00 EST, Route to Pharmacy Electronically, [facility] 08876, 186, cm, 10/18/22 10:20:00 EST, Height, 101, [...] 12/28/22 12:07:00 EDT, Route to Pharmacy Electronically, [facility] STORE 93078, 188, cm, 12/27/22 15:10:00 EDT, Height, 101, kg, 08/23/22 15:54:00 EST, Dry Weight Start Date: 12/28/22 Status: Ordered Lasix 40 mg oral tablet 40 mg, 1, tablet, By Mouth, Daily, # 180 tablet, Refills 3, Tot. Refills 3, Maintenance, 10/24/22 7:50:00 EST, Route to Pharmacy Electronically, [facility]/pharmacy #[id number], Partial fill upon patient request if [...] Refills, Maintenance, 08/28/22 14:56:00 EST, ER Tablet, [facility] 3, Partial fill upon patient request [...] 12/28/22 12:07:00 EDT, Route to Pharmacy Electronically, [facility] 22370, 188, cm, 12/27/22 15:10:00 EDT, Height, 101, [...] Team Personnel Name: Tasneem Borja MD Position: [facility] Outreach Member Role: PCP Address: Address: [address] [place] [address]- Name: Laura Roberts RN Position: [facility] RN Supv Member Role: Primary Care Nurse Care Team Related Persons Name: ALYSHA RICO Address: home [address] [place] [address]
--- OUTSIDE RECORDS SUMMARY | 2023-04-16 13:34 | XMS_ITS | Continuity of Care Document ---
Author Name Unknown Organization [facility] Address [address] [place] [phone]- Care Team Providers Care Invoicing Specialist Name Role Phone Tasneem Borja MD Primary Care Physician Encounter [facility] Date(s): 09/05/22 - 10/05/22 [facility] [address] [place] [address]- [place] Allergies, Adverse Reactions, Alerts No Known Allergies Medications amiodarone 200 mg oral tablet 200 mg, 1, tablet, By Mouth, 2 times a day, # 60 tablet, Refills 0, Tot. Refills 0, Maintenance, 08/28/22 14:55:00 EST, Route to Pharmacy Electronically, [facility], Partial fill upon patient [...] 09/20/22 7:52:00 EST, Route to Pharmacy Electronically, [facility]/pharmacy #[id number], Partial fill upon patient request [...] 09/20/22 7:52:00 EST, Route to Pharmacy Electronically, [facility]/pharmacy #[id number], Partial fill upon patient request if the prescription is for a schedule II opioid drug... Start Date: 09/20/22 Status: Ordered Lasix 40 mg oral tablet 40 mg, 1, tablet, By Mouth, 2 times a day, # 6 tablet, Refills 0, Tot. Refills 0, Maintenance, 08/28/22 14:56:00 EST, Route to Pharmacy Electronically, [facility], Partial fill upon patient request if [...] Refills, Maintenance, 08/28/22 14:56:00 EST, ER Tablet, [facility], Partial fill upon patient request if the prescription is for a schedule II opioid drug., 186, cm, 08/28/22 12:... Start Date: 08/28/22 Stop Date: 08/31/22 Status: Ordered tamsulosin 0.4 mg oral capsule 0.4 mg, 1, capsule, By Mouth, Daily, # 30 capsule, Refills 0, Tot. Refills 0, Maintenance, 227:52:00 EST, Route to Pharmacy Electronically, [facility]/pharmacy #[id number], Partial fill upon patient request if the [...] Team Personnel Name: Tasneem Borja MD Position: [facility] Outreach Member Role: PCP Address: Address: [address] [place] [address]- Name: Laura Roberts RN Position: S RN Supv Member Role: Primary Care Nurse Care Team Related Persons Name: ALYSHA RICO Address: [address] [place] [address]
--- OUTSIDE RECORDS SUMMARY | 2023-04-16 13:34 | XMS_ITS | Continuity of Care Document ---
Author Name Unknown Organization [facility] Address [address] [place] [address]- Care Team Providers Care Insurance Compliance Analyst Name Role Phone Jonh DILLARD, Tasneem Steiner Primary Care Physician Encounter [facility] Date(s): 07/10/22 - 08/09/22 [facility] [address] [place] [address] [place] [phone] Allergies, Adverse Reactions, Alerts No Known Medication [...] Care team information Care Team Personnel Name: Jonh DILLARD, Tasneem Steiner Position: [facility] Outreach Member Role: PCP Address: Address: [address] [place] [address] [address] [place], [place] [address] Care Team Related Persons Name: ALYSHA RICO Address: home [address] [place] [address]
--- OUTSIDE RECORDS SUMMARY | 2023-04-16 13:34 | XMS_ITS | Continuity of Care Document ---
Author Name Unknown Organization [facility] Address [address] [place] [address]- Care Team Providers Care Oracle Erp Developer Name Role Phone Jonh DILLARD, Tasneem Steiner Primary Care Physician [place] [facility] [place] 12/26/22 - 01/25/23 [facility] [address] [place] [phone] Allergies, Adverse Reactions, Alerts No Known Allergies [...] 11/03/22 13:59:00 EST, Route to Pharmacy Electronically, [facility] 09860, 186, cm, 10/18/22 10:20:00 EST, Height, 101, [...] 12/28/22 12:07:00 EDT, Route to Pharmacy Electronically, [facility] STORE 34976, 188, cm, 12/27/22 15:10:00 EDT, Height, 101, kg, 08/23/22 15:54:00 EST, Dry Weight Start Date: 12/28/22 Status: Ordered Lasix 40 mg oral tablet 40 mg, 1, tablet, By Mouth, Daily, # 180 tablet, Refills 3, Tot. Refills 3, Maintenance, 10/24/22 7:50:00 EST, Route to Pharmacy Electronically, [facility]/pharmacy #[id number], Partial fill upon patient request if [...] Refills, Maintenance, 08/28/22 14:56:00 EST, ER Tablet, [facility], Partial fill upon patient [...] 12/28/22 12:07:00 EDT, Route to Pharmacy Electronically, [facility] 77625, 188, cm, 12/27/22 15:10:00 EDT, Height, 101, [...] Team Personnel Name: Tasneem Borja MD Position: [facility] Outreach Member Role: PCP Address: Address: [address] [place] [address] [place] [address]- Name: Laura Roberts RN Position: S RN Supv Member Role: Primary Care Nurse Care Team Related Persons Name: ALYSHA RICO Address: home [address] [place] [address]
--- OUTSIDE RECORDS SUMMARY | 2023-04-16 13:34 | XMS_ITS | Continuity of Care Document ---
Author Name Unknown Organization [facility] best Address [address] [place] [address] [address] [place] [address]- Care Team Providers Care Cardiology Specialist Name Role Phone Raghu Drake MD Primary Care Physician Encounter [facility] [place] Date(s): 06/17/21 - 07/17/21 [facility] [address] [place], [place] [address] Attending Physician: Olivier Torrez Admitting Physician: AdmOlivier newell Referring Physician: AdmtrOlivier Allergies, Adverse Reactions, Alerts No Known Medication [...] opioid drug. Start Date: 06/17/21 Status: Ordered Meloxicam Daily, 0 Refills, Maintenance, 05/13/21 13:09:00 EDT, Partial fill upon patient request if the prescription is for a schedule II opioid drug. Start Date: 05/13/21 Status: Ordered nitroglycerin 0.4 mg sublingual tablet = 0.4 mg, Sublingual, Every 5 minutes, PRN Chest Pain, 0 Refills, Maintenance, 01/26/16 16:25:49, Tablet Start Date: 01/26/16 Status: Ordered Synthroid 0.125 mg oral tablet By Mouth, Daily, 0 Refills, Maintenance, 01/26/16 16:25:30, Tablet Start Date: 01/26/16 Status: Ordered ticagrelor 90 mg oral tablet 1 tablet = 90 mg, By Mouth, 2 times a day, 0 Refills, Maintenance, 01/26/16 16:25:53, Tablet Start Date: 01/26/16 Status: Ordered ticagrelor 90 mg oral tablet 1 tablet = 90 mg, By Mouth, 2 times a day, Do not stop for any reason without calling Dr. Lance [phone], # 60 tablet, 0 Refills, Maintenance, 01/26/16 16:26:15, Tablet Start Date: 01/26/16 Status: Ordered ticagrelor 90 mg oral tablet 1 tablet = 90 mg, By Mouth, 2 times a day, Do not stop for any reason without calling Dr. Lance [id number], # 60 tablet, 11 Refills, Maintenance, 01/26/16 16:26:46, Tablet Start Date: 01/26/16 Status: Ordered Toprol [...]
--- OUTSIDE RECORDS SUMMARY | 2023-04-16 13:34 | XMS_ITS | Continuity of Care Document ---
Author Name Unknown Organization [facility] Address [address] [place] [address]- Care Team Providers Care Security Intern Name Role Phone Tasneem Borja MD Primary Care Physician [place] [facility] [place]23 - 03/07/23 [facility] [address] [place] [address]- [place] Allergies, Adverse Reactions, Alerts No Known [...] 11/03/22 13:59:00 EST, Route to Pharmacy Electronically, [facility] 03561, 186, cm, 10/18/22 10:20:00 EST, Height, 101, [...] 12/28/22 12:07:00 EDT, Route to Pharmacy Electronically, [facility] STORE 88754, 188, cm, 12/27/22 15:10:00 EDT, Height, 101, kg, 08/23/22 15:54:00 EST, Dry Weight Start Date: 12/28/22 Status: Ordered Lasix 40 mg oral tablet 40 mg, 1, tablet, By Mouth, Daily, # 180 tablet, Refills 3, Tot. Refills 3, Maintenance, 10/24/22 7:50:00 EST, Route to Pharmacy Electronically, [facility]/pharmacy #[id number], Partial fill upon patient request [...] Refills, Maintenance, 08/28/22 14:56:00 EST, ER Tablet, [facility], Partial fill upon patient [...] 12/28/22 12:07:00 EDT, Route to Pharmacy Electronically, [facility] 91162, 188, cm, 12/27/22 15:10:00 EDT, Height, 101, [...] Team Personnel Name: Tasneem Borja MD Position: [facility] Outreach Member Role: PCP Address: Address: [address] [place] [address]- Name: Laura Roberts RN Position: S RN Supv Member Role: Primary Care Nurse Care Team Related Persons Name: ALYSHA RICO Address: home [address] [place] [address]
--- OUTSIDE RECORDS SUMMARY | 2023-04-16 13:34 | XMS_ITS | Continuity of Care Document ---
Author Name Unknown Organization [facility] Address [address] [place] [address] [address] [place] [address]- Care Team Providers Care Pulmonary Function Technologist Name Role Phone Raghu Drake MD Primary Care Physician Encounter [facility] Date(s): 06/17/21 - 06/24/21 [facility] [address] [place], [place] [address] Attending Physician: Rafy Robert MD Referring Physician: Rahgu Drake MD Allergies, Adverse Reactions, Alerts No Known [...] for any reason without calling Dr. Lance [phone], # 60 tablet, 0 Refills, Maintenance, 01/26/16 16:26:15, Tablet Start Date: 01/26/16 Status: Ordered ticagrelor 90 mg oral tablet 1 tablet = 90 mg, By Mouth, 2 times a day, Do not stop for any reason without calling Dr. Lance [id number], # 60 tablet, 11 Refills, Maintenance, 01/26/16 [...] opioid drug. Start Date: 06/17/21 Status: Ordered Vital Signs Most recent to oldest [Reference Range]: 1 Height 189 cm (06/17/21 1:09 PM) Temperature [96.8-100.4 DegF] 96.7 DegF *L* (06/17/21 1:09 PM)
--- OUTSIDE RECORDS SUMMARY | 2023-04-16 13:34 | XMS_ITS | Continuity of Care Document ---
Author Name Unknown Organization [facility] Address [address] [place] [address]- Care Team Providers Care Material Handling Equipment Stevedore Name Role Phone Jonh DILLARD, Tasneem Steiner Primary Care Physician Encounter [facility] [place] Date(s): 09/05/22 - 09/12/22 [facility] [address] [place] [address] Attending Physician: Augusto Eddy MD Referring Physician: Florida Palomino MD Allergies, Adverse Reactions, Alerts No Known Allergies Medications amiodarone 200 mg oral tablet 200 mg, 1, tablet, By Mouth, 2 times a day, # 60 tablet, Refills 0, Tot. Refills 0, Maintenance, 08/28/22 14:55:00 EST, Route to Pharmacy Electronically, [facility], Partial fill upon patient request [...] 08/28/22 14:55:00 EST, Route to Pharmacy Electronically, [facility], Partial fill upon patient request [...] 09/25/22 14:57:00 EST, 08/28/22 14:56:00 EST, Tablet, [facility], Partial fill upon patient request if the prescription is for aschedule II opioid drug., 1 tablet By Mouth Daily,... Start Date: 08/28/22 Stop Date: 09/25/22 Status: Ordered ferrous sulfate 325 mg oral enteric coated tablet 325 mg, 1, tablet, By Mouth, Daily, # 30 tablet, Refills 0, Tot. Refills 0, Maintenance, 08/28/22 14:56:00 EST, Route to Pharmacy Electronically, [facility], Partial fill upon patient request if the prescription is for a schedule II opio... Start Date: 08/28/22 Status: Ordered Lasix 40 mg oral tablet 40 mg, 1, tablet, By Mouth, 2 times a day, # 6 tablet, Refills 0, Tot. Refills 0, Maintenance, 08/28/22 14:56:00 EST, Route to Pharmacy Electronically, [facility], Partial fill upon patient request if [...] Refills, Maintenance, 08/28/22 14:56:00 EST, ER Tablet, [facility], Partial fill upon patient request if the prescription is for a schedule II opioid drug., 186, cm, 08/28/22 12:... Start Date: 08/28/22 Stop Date: 08/31/22 Status: Ordered tamsulosin 0.4 mg oral capsule 0.4 mg, 1, capsule, By Mouth, Daily, # 30 capsule, Refills 0, Tot. Refills 0, Maintenance, 08/28/2214:56:00 EST, Route to Pharmacy Electronically, [facility], Partial fill upon patientrequest if [...] artery disease Confirmed Active Hypertension Confirmed Active Vital Signs Most recent to oldest [Reference Range]: 1 Height 186 cm (09/05/22 11:54 AM) Weight 96.4 kg (09/05/22 11:54 AM) Oxygen Saturation [94-100 %] 96 % (09/05/22 11:54 AM) Pulse Rate [55-90 bpm] 76 bpm (09/05/22 11:54 AM) Body Mass Index [18.5-24.99 kg/m2] 27.86 kg/m2 *H* (09/05/22 11:54 AM) Blood Pressure [90-138/55-84 mm Hg] 116/ 70mm Hg (09/05/22 11:54 AM) Respiratory Rate [16-30 br/min] 18 br/mi n (09/05/22 11:54 AM) Mode of Delivery (Oxygen) Room air (09/05/22 11:54 AM) Blood pressure sites Arm, left (09/05/22 11:54 AM) Weight Obtained Via Patient/family state d (09/05/22 11:54 AM) Social History Social History Type Response Smoking Status Former smoker, quit more than 30 days ago entered on: 09/05/22 Sex Cardiac surgery Outpatient Note * Gaviota Amanda: REVIEW Nunu DILLARD, Augusto: PERFORM, SIGN Nunu DILLARD, Augusto: SIGN, VERIFY Nunu DILLARD, Augusto: VERIFY Event Display: Cardiac Surgery Note Office Authored Date: [id number] Patient: EMI DALY Age: 76 years Sex: Male : 1945 Associated Diagnoses: None Author: Augusto Eddy MD CARDIAC SURGERY OFFICE NOTE DATE: 09/05/22 76 year old male who underwent cabg x3 VO-LAD, SVG ??? PDA, PLV on 08/23/22 by me for coronary artery disease diagnosed after positive stress test presents today for a follow up visit with no complaints. Patient has been doing well and pain is tolerable after discharge home. He remains weak however is improving. He is improving his daily activity and using incentive spirometer. Not gaining weight, no sob or pedal edema. Denies fever, pain, erythema, drainage, numbness, or other wound related complications. VITAL SIGNS: afebrile, blood pressure 116/70 mmHg, heart rate 76 beats per minute, oxygen saturation 96% on room air at rest. PHYSICAL EXAMINATION: CONST: The patient is alert, oriented and pleasantly conversant. EYES: Anicteric, nl conjunctivae, EOM intact ENT: Nl oropharynx NECK: No evidence of JVD or HJR. Carotid impulses and upstroke normal bilaterally, no carotid bruits CV: Regular rhythm, no murmur; No aortic pulsation or aortic bruits. RESP: Normal respiratory effort, clear to auscultation bilaterally GI: Soft, non-tender and non-distended bowels sounds normoactive, no abdominal bruits EXT: no lower extremity edema, no cyanosis SKIN: No rash, skin warm and dry. NEURO: Alert and oriented x 3, CN 2-12 grossly intact Surgical Wounds: Chest: The sternum is stable. The sternal incision is well approximated without erythema or drainage. The chest tube sites are healing well. Saphenous harvest site w/ some induration., no pain, erythema or drainage. A/P: The patient is a 76 year old male who underwent cabg x3 on 08/23/22 doing well postoperatively. Pt and partner had all questions answered, and overall the patient is doing well following cardiacsurgery. He was advised to continue to follow up with cardiology and start cardiac rehab soon. Dr. Mayer will monitor aortic valve as mild stenosis present preoperatively. No longer needs routinesurgical follow, he knows to follow up as needed if any wound issues were to come about. Augusto Eddy MD [facility] [address] [facility] [address], [address] [place] [address] Office: [phone] Patient Care team information Care Team Personnel Name: Jonh DILLARD, Tasneem Steiner Position: [facility] Outreach Member Role: PCP Address: Address: [address] [place] [address] [address] [place] [address]- Name: Laura Roberts RN Position: [facility] RN Supv Member Role: Primary Care Nurse Care Team Related Persons Name: ALYSHA RICO Address: home [address] [place] [address]
--- OUTSIDE RECORDS SUMMARY | 2023-04-16 13:34 | XMS_ITS | Continuity of Care Document ---
Author Name Unknown Organization [facility] Address [address] [place] [address]- Care Team Providers Care Deputy Director Of Nursing Name Role Phone Tasneem Borja MD Primary Care Physician [place] [facility] [place] Date(s): 09/19/22 - 10/19/22 [facility] [address] [place] [address]- [place] Allergies, Adverse Reactions, Alerts No Known Allergies Medications amiodarone 200 mg oral tablet 200 mg, 1, tablet, By Mouth, 2 times a day, # 60 tablet, Refills 0, Tot. Refills 0, Maintenance, 08/28/22 14:55:00 EST, Route to Pharmacy Electronically, [facility], Partial fill upon patient [...] 09/20/22 7:52:00 EST, Route to Pharmacy Electronically, [facility]/pharmacy #[id number], Partial fill upon patient request if [...] 09/20/22 7:52:00 EST, Route to Pharmacy Electronically, [facility]/pharmacy #[id number], Partial fill upon patient request if the prescription is for a schedule II opioid drug... Start Date: 09/20/22 Status: Ordered Lasix 40 mg oral tablet 40 mg, 1, tablet, By Mouth, 2 times a day, # 6 tablet, Refills 0, Tot. Refills 0, Maintenance, 08/28/22 14:56:00 EST, Route to Pharmacy Electronically, [facility], Partial fill upon patient request [...] Refills, Maintenance, 08/28/22 14:56:00 EST, ER Tablet, [facility], Partial fill upon patient request if the prescription is for a schedule II opioid drug., 186, cm, 08/28/22 12:... Start Date: 08/28/22 Stop Date: 08/31/22 Status: Ordered tamsulosin 0.4 mg oral capsule 0.4 mg, 1, capsule, By Mouth, Daily, # 30 capsule, Refills 0, Tot. Refills 0, Maintenance, 227:52:00 EST, Route to Pharmacy Electronically, [facility]/pharmacy #[id number], Partial fill upon patient request if the [...] Team Personnel Name: Tasneem Borja MD Position: [facility] Outreach Member Role: PCP Address: Address: [address] [place] [address]- Name: Laura Roberts RN Position: S RN Supv Member Role: Primary Care Nurse Care Team Related Persons Name: ALYSHA RICO Address: home [address] [place] [address]
--- OUTSIDE RECORDS SUMMARY | 2023-04-16 13:35 | XMS_ITS | Continuity of Care Document ---
Author Name Unknown Organization [facility] Address [address] [place] [address]- Care Team Providers Care Emergency Service Restorer Name Role Phone Tasneem Borja MD Primary Care Physician Encounter [facility] Date(s): 10/04/22 - 11/03/22 [facility] [address] [place] [address]- Attending Physician: Olivier Torrez Admitting Physician: Olivier Torrez Referring Physician: Olivier Torrez Allergies, Adverse Reactions, Alerts No Known Allergies Medications amiodarone 200 mg oral tablet 200 mg, 1, tablet, By Mouth, 2 times a day, # 60 tablet, Refills 0, Tot. Refills 0, Maintenance, 08/28/22 14:55:00 EST, Route to Pharmacy Electronically, [facility], Partial fill upon patient [...] 11/03/22 13:59:00 EST, Route to Pharmacy Electronically, [facility] [id number], 186, cm, 10/18/22 10:20:00 EST, Height, 101, [...] 10/26/22 14:13:00 EST, Route to Pharmacy Electronically, [facility] 044[facility], 186, cm, 10/18/22 10:20:00 EST, Height, 101, kg, 08/23/22 15:54:00 EST, Dry Weight Start Date: 10/26/22 Status: Ordered Lasix 40 mg oral tablet 40 mg, 1, tablet, By Mouth, 2 times a day, # 180 tablet, Refills 3, Tot. Refills 3, Maintenance, 10/24/22 7:50:00 EST, Route to Pharmacy Electronically, [facility]/pharmacy #[id number], Partial fill upon patient request if [...] EST, ER Tablet, [facility], Partial fill upon patient request if the prescription is for a schedule II opioid drug., 186, cm, 08/28/22 12:... Start Date: 08/28/22 Stop Date: 08/31/22 Status: Ordered tamsulosin 0.4 mg oral capsule 1, capsule, By Mouth, Daily, # 30 capsule, Refills 0, Maintenance, 10/26/22 14:13:00 EST, Route to Pharmacy Electronically, [facility] 310[facility], 186, cm, 10/18/22 10:20:00 EST, Height, 101, [...] Team Personnel Name: Tasneem Borja MD Position: [facility] Outreach Member Role: PCP Address: Address: [address] [place] [address]- Name: Laura Roberts RN Position: [facility] RN Supv Member Role: Primary Care Nurse Care Team Related Persons Name: ALYSHA RICO Address: home [address] [place] [address]
--- OUTSIDE RECORDS SUMMARY | 2023-04-16 13:35 | XMS_ITS | Continuity of Care Document ---
Author Name Unknown Organization [facility] Address [address] [place] [address]- Care Team Providers Care Third Helper Name Role Phone Jonh DILLARD, Tasneem Steiner Primary Care Physician Encounter [facility] Date(s): 01/02/23 - 02/01/23 [facility] [address] [place] [address]- [place] Allergies, Adverse Reactions, Alerts No Known [...] 11/03/22 13:59:00 EST, Route to Pharmacy Electronically, [facility] 75740, 186, cm, 10/18/22 10:20:00 EST, Height, 101, [...] 12/28/22 12:07:00 EDT, Route to Pharmacy Electronically, [facility] 31029, 188, cm, 12/27/22 15:10:00 EDT, Height, 101, kg, 08/23/22 15:54:00 EST, Dry Weight Start Date: 12/28/22 Status: Ordered Lasix 40 mg oral tablet 40 mg, 1, tablet, By Mouth, Daily, # 180 tablet, Refills 3, Tot. Refills 3, Maintenance, 10/24/22 7:50:00 EST, Route to Pharmacy Electronically, [facility]/pharmacy #[id number], Partial fill upon patient request if [...] Refills, Maintenance, 08/28/22 14:56:00 EST, ER Tablet, [facility], Partial fill upon patient request [...] 12/28/22 12:07:00 EDT, Route to Pharmacy Electronically, [facility] 85122, 188, cm, 12/27/22 15:10:00 EDT, Height, 101, [...] S Outreach Member Role: PCP Address: Address: [address] [place] [address]- Name: Laura Roberts RN Position: S RN Supv Member Role: Primary Care Nurse Care Team Related Persons Name: ALYSHA RICO Address: home [address] [place] [address]
--- OUTSIDE RECORDS SUMMARY | 2023-04-16 13:35 | XMS_ITS | Continuity of Care Document ---
Author Name Unknown Organization [facility] Address [address] [place] [address]- Care Team Providers Care Pharmacology Professor Name Role Phone Tasneem Borja MD Primary Care Physician Encounter [facility] [place] Date(s): 11/03/22 - 12/03/22 [facility] [address] [place] [address]- [place] Allergies, Adverse Reactions, Alerts No Known [...] 11/03/22 13:59:00 EST, Route to Pharmacy Electronically, [facility] 56109, 186, cm, 10/18/22 10:20:00 EST, Height, 101, [...] 11/30/22 8:41:00 EST, Route to Pharmacy Electronically, [facility] 42838, 186, cm, 11/15/22 10:52:00 EST, Height, 101, kg, 08/23/22 15:54:00 EST, Dry Weight Start Date: 11/30/22 Status: Ordered Lasix 40 mg oral tablet 40 mg, 1, tablet, By Mouth, Daily, # 180 tablet, Refills 3, Tot. Refills 3, Maintenance, 10/24/22 7:50:00 EST, Route to Pharmacy Electronically, [facility]/pharmacy #0373, Partial fill upon patient request [...] Refills, Maintenance, 08/28/22 14:56:00 EST, ER Tablet, [facility], Partial fill upon patient [...] 11/30/22 8:41:00 EST, Route to Pharmacy Electronically, [facility] 04389, 186, cm, 11/15/22 10:52:00 EST, Height, 101, [...] MD Position: [facility] Outreach Member Role: PCP Address: Address: [address] [place] [address]- Name: aLura Roberts RN Position: S RN Supv Member Role: Primary Care Nurse Care Team Related Persons Name: TRISHA ALYSHA Address: home [address] [place] [address]
--- OUTSIDE RECORDS SUMMARY | 2023-04-16 13:35 | XMS_ITS | Continuity of Care Document ---
Author Name Unknown Organization [facility] Address [address] [place] [address]- Care Team Providers Care Gas Processing Plant Operator Name Role Phone Tasneem Borja MD Primary Care Physician En[place] [facility] [place] Date(s): 08/25/22 - 09/24/[address] [address]- Attending Physician: Not on Staff, Attending MD Admitting Physician: Not on Staff, Admitting MD Referring Physician: Not on Staff, Referring MD Allergies, Adverse Reactions, Alerts No Known Allergies Medications amiodarone 200 mg oral tablet 200 mg, 1, tablet, By Mouth, 2 times a day, # 60 tablet, Refills 0, Tot. Refills 0, Maintenance, 08/28/22 14:55:00 EST, Route to Pharmacy Electronically, [facility], Partial fill upon patient request [...] 09/20/22 7:52:00 EST, Route to Pharmacy Electronically, [facility]/pharmacy #[id number], Partial fill upon patient request [...] 09/25/22 14:57:00 EST, 08/28/22 14:56:00 EST, Tablet, [facility], Partial fill upon patient request if the prescription is for aschedule II opioid drug., 1 tablet By Mouth Daily,... Start Date: 08/28/22 Stop Date: 09/25/22 Status: Ordered ferrous sulfate 325 mg oral enteric coated tablet 325 mg, 1, tablet, By Mouth, Daily, # 30 tablet, Refills 0, Tot. Refills 0, Maintenance, 09/20/22 7:52:00 EST, Route to Pharmacy Electronically, [facility]/pharmacy #[id number], Partial fill upon patient request if the prescription is for a schedule II opioid drug... Start Date: 09/20/22 Status: Ordered Lasix 40 mg oral tablet 40 mg, 1, tablet, By Mouth, 2 times a day, # 6 tablet, Refills 0, Tot. Refills 0, Maintenance, 08/28/22 14:56:00 EST, Route to Pharmacy Electronically, [facility], Partial fill upon patient request [...] Refills, Maintenance, 08/28/22 14:56:00 EST, ER Tablet, [facility], Partial fill upon patient request if the prescription is for a schedule II opioid drug., 186, cm, 08/28/22 12:... Start Date: 08/28/22 Stop Date: 08/31/22 Status: Ordered tamsulosin 0.4 mg oral capsule 0.4 mg, 1, capsule, By Mouth, Daily, # 30 capsule, Refills 0, Tot. Refills 0, Maintenance, :52:00 EST, Route to Pharmacy Electronically, [facility]/pharmacy #[id number], Partial fill upon patient request if the prescription is for a schedule II opioid drRuben Start Date: 09/20/22 Status: Ordered Toprol XL [...] S Outreach Member Role: PCP Address: Address: [address] [place] [address] Name: Laura Roberts RN Position: [facility] RN Supv Member Role: Primary Care Nurse Care Team Related Persons Name: ALYSHA RICO Address: home [address] [place] [address]
--- OUTSIDE RECORDS SUMMARY | 2023-04-16 13:35 | XMS_ITS | Continuity of Care Document ---
Author Name Unknown Organization [facility] ter Address [address] [place] [address]- Care Team Providers Care Superintendent Horticulture Name Role Phone Not on Staff, PCP Primary Care Physician Unavail able [place] [facility] [place]/11[place] - 11/10/[address] [address]- Allergies, Adverse Reactions, Alerts No Known Medication [...] for any reason without calling Dr. Lance [id number], # 60 tablet, 0 Refills, Maintenance, 01/26/16 16:26:15, Tablet Start Date: 01/26/16 Status: Ordered ticagrelor 90 mg oral tablet 1 tablet = 90 mg, By Mouth, 2 times a day, Do not stop for any reason without calling Dr. Lance [id number], # 60 tablet, 11 Refills, Maintenance, 01/26/16 [...]
--- OUTSIDE RECORDS SUMMARY | 2023-04-16 13:35 | XMS_ITS | Continuity of Care Document ---
Author Name Unknown Organization [facility] Address [address] [place] [address]- Care Team Providers Care Buyer Broker Name Role Phone Tasneem Borja MD Primary Care Physician Encounter [facility] [place] Date(s): 07/12/22 - 08/11/22 [facility] [address] [place] [address]- [place] Allergies, Adverse Reactions, Alerts No Known Allergies Medications aspirin 81 mg oral delayed release tablet 81 mg, By Mouth, Daily, Refills 0, Maintenance, 01/26/16 16:24:29 Start Date: 01/26/16 Status: Ordered atorvastatin 80 mg oral tablet = 80 mg, By Mouth, Daily at bedtime, # 30 tablet, 11 Refills, Maintenance, Tablet, Print Requisition Start Date: 01/26/16 Status: Ordered Cholecalciferol 1 tablet, By Mouth, Daily, 0 Refills, Maintenance, 08/11/22 10:25:00 EST, Partial fill upon patientrequest if the prescription is for a schedule II opioid drug. Start Date: 08/11/22 Status: Ordered Flomax 0.4 mg oral capsule [...] 16:25:49, Tablet Start Date: 01/26/16 Status: Ordered Otezla 30 mg oral tablet 1 tablet = 30 mg, By Mouth, 2 times a day, 0 Refills, Maintenance, 08/11/22 10:14:00 EST, Partial fill upon patient request if the prescription is for a schedule II opioid drug. Start Date: 08/11/22 Status: Ordered Synthroid 0.125 mg oral tablet [...] Team Personnel Name: Tasneem Borja MD Position: [facility] Outreach Member Role: PCP Address: Address: [address] [place] [address]- Care Team Related Persons Name: ALYSHA RICO Address: home [address] [place] [address]
--- OUTSIDE RECORDS SUMMARY | 2023-04-16 13:35 | XMS_ITS | Continuity of Care Document ---
Author Name Unknown Organization [facility] Address [address] [place] [address]- Care Team Providers Care Dispensing Operator Name Role Phone Jonh DILLARD, Tasneem Steiner Primary Care Physician [place] [facility] [place] - 02/19/22 [facility] [address] [place] [address]- [place] Allergies, Adverse Reactions, Alerts No Known [...] for any reason without calling Dr. Lance [id number], # 60 tablet, 0 Refills, Maintenance, 01/26/16 16:26:15, Tablet Start Date: 01/26/16 Status: Ordered ticagrelor 90 mg oral tablet 1 tablet = 90 mg, By Mouth, 2 times a day, Do not stop for any reason without calling Dr. Lance [id number], # 60 tablet, 11 Refills, Maintenance, 01/26/16 [...] Effective Dates Status Health Status Inform ant Obese class I(Confirmed) Active
--- OUTSIDE RECORDS SUMMARY | 2023-04-16 13:35 | XMS_ITS | Continuity of Care Document ---
Author Name Unknown Organization [facility] ter Address [address] [place] [address]- Care Team Providers Care Bearing Inspector Name Role Phone Tasneem oBrja MD Primary Care Physician Encounter [facility] [place] Date(s): 07/07/22 - 08/10/[address] [address] Attending Physician: Emi Green II, MD Admitting Physician: Emi Green II, MD Referring Physician: Emi Green II, MD Allergies, Adverse Reactions, Alerts No Known [...] Personnel Name: Jonh DILLARD, Tasneem Steiner Position: [facility] Outreach Member Role: PCP Address: Address: [address] [place] [address] Care Team Related Persons Name: ALYSHA RCIO Address: home [address] [place] [address]
--- OUTSIDE RECORDS SUMMARY | 2023-04-16 13:35 | XMS_ITS | Continuity of Care Document ---
Author Name Unknown Organization [facility] ter Address [address] [place] [address]- Care Team Providers Care Attorney Recruiter Name Role Phone Raghu Drake MD Primary Care Physician Encounter [facility] [place] Date(s): 05/13/21 - 05/13/[address] [address]- Discharge Disposition: A-D/C Walkout Attending Physician: Not on Staff, Attending MD [...] Print Requisition Start Date: 01/26/16 Status: Ordered Meloxicam Daily, 0 Refills, Maintenance, [...] for any reason without calling Dr. Lance [id number], # 60 tablet, 0 Refills, Maintenance, 01/26/16 16:26:15, Tablet Start Date: 01/26/16 Status: Ordered ticagrelor 90 mg oral tablet 1 tablet = 90 mg, By Mouth, 2 times a day, Do not stop for any reason without calling Dr. Lance [id number], # 60 tablet, 11 Refills, Maintenance, 01/26/16 16:26:46, Tablet Start Date: 01/26/16 Status: Ordered Toprol XL 50 mg oral tablet, extended release 150 mg, By Mouth, Daily, Refills 0, Maintenance, 01/26/16 16:25:47 Start Date: 01/26/16 Status: Ordered Vital Signs Most recent to oldest [Reference Range]: 1 2 3 Weight 109.6 kg (05/13/21 3:02 PM) 109.6 kg (05/13/21 12:56 PM) 109.6 kg (05/13/21 9:47 AM) Oxygen Saturation [94-100 %] 98 % (05/13/21 3:02 PM) 100 % (05/13/21 9:47 AM) 97 % (05/13/21 9:45 AM) Pulse Rate [55-90 bpm] 57 bpm (05/13/21 3:02 PM) 61 bpm (05/13/21 9:47 AM) 64 bpm (05/13/21 9:45 AM) Blood Pressure [90-138/55-84 mm Hg] 157/59mm Hg *H* (05/13/21 3:02 PM) 146/57mm Hg *H* (05/13/21 9:47 AM) Respiratory Rate [16-30 br/min] 16 br/min (05/13/21 3:02 PM) 16 br/min (05/13/21 9:47 AM) 20 br/min (05/13/21 9:45 AM) Temperature [96.8-100.4 DegF] 98.3 DegF (05/13/21 3:02 PM) 97.7 DegF (05/13/21 9:47 AM) Mode of Delivery (Oxygen) Room air (05/13/21 3:02 PM) Nasal cannula (05/13/21 9:47 AM) Room air (05/13/21 9:45 AM) Blood pressure sites Arm, right (05/13/21 3:02 PM) Arm, right (05/13/21 9:47 AM) Temperature Route Oral (05/13/21 3:02 PM) Oral (05/13/21 9:47 AM) Dry Weight 109.6 kg (05/13/21 3:02 PM) 109.6 kg (05/13/21 12:56 PM) 109.6 kg (05/13/21 9:47 AM) Weight Obtained Via Standing scale (05/13/21 9:47 AM) Dry Weight Obtained Via Standing scale (05/13/21 9:47 AM)
--- OUTSIDE RECORDS SUMMARY | 2023-04-16 13:35 | XMS_ITS | Continuity of Care Document ---
Author Name Unknown Organization [facility] Address [address] [place] [phone]- Care Team Providers Care Hod Carrier Name Role Phone Tasneem Borja MD Primary Care Physician [place] [facility] [place](s): 01/20/22 - 04/23/22 [facility] [address] [place] [phone]- Attending Physician: Ismael Mayer MD Referring Physician: [...] for any reason without calling Dr. Lance [phone], # 60 tablet, 0 Refills, Maintenance, 01/26/16 16:26:15, Tablet Start Date: 01/26/16 Status: Ordered ticagrelor 90 mg oral tablet 1 tablet = 90 mg, By Mouth, 2 times a day, Do not stop for any reason without calling Dr. Lance [phone], # 60 tablet, 11 Refills, Maintenance, 01/26/16 [...]
--- OUTSIDE RECORDS SUMMARY | 2023-04-16 13:35 | XMS_ITS | Continuity of Care Document ---
Author Name Unknown Organization [facility] Address [address] [place] [address]- Care Team Providers Care Digital Pre Press Operator Name Role Phone Jonh DILLARD, Tasneem Steiner Primary Care Physician Encounter 08/29/22 - 09/21/22 [facility] [address] [place] [address]- Discharge Disposition: GOALS MET Allergies, Adverse Reactions, Alerts No Known Allergies Medications amiodarone 200 mg oral tablet 200 mg, 1, tablet, By Mouth, 2 times a day, # 60 tablet, Refills 0, Tot. Refills 0, Maintenance, 08/28/22 14:55:00 EST, Route to Pharmacy Electronically, [facility], Partial fill upon patient [...] 09/20/22 7:52:00 EST, Route to Pharmacy Electronically, [facility]/pharmacy #[id number], Partial fill upon patient request [...] 09/25/22 14:57:00 EST, 08/28/22 14:56:00 EST, Tablet, [facility], Partial fill upon patient request if the prescription is for aschedule II opioid drug., 1 tablet By Mouth Daily,... Start Date: 08/28/22 Stop Date: 09/25/22 Status: Ordered ferrous sulfate 325 mg oral enteric coated tablet 325 mg, 1, tablet, By Mouth, Daily, # 30 tablet, Refills 0, Tot. Refills 0, Maintenance, 09/20/22 7:52:00 EST, [id number], Partial fill upon patient request if the prescription is for a schedule II opioid drug... Start Date: 09/20/22 Status: Ordered Lasix 40 mg oral tablet 40 mg, 1, tablet, By Mouth, 2 times a day, # 6 tablet, Refills 0, Tot. Refills 0, Maintenance, 08/28/22 14:56:00 EST, Route to Pharmacy Electronically, [facility], Partial fill upon patient [...] Refills, Maintenance, 08/28/22 14:56:00 EST, ER Tablet, [facility], Partial fill upon patient request if the prescription is for a schedule II opioid drug., 186, cm, 08/28/22 12:... Start Date: 08/28/22 Stop Date: 08/31/22 Status: Ordered tamsulosin 0.4 mg oral capsule 0.4 mg, 1, capsule, By Mouth, Daily, # 30 capsule, Refills 0, Tot. Refills 0, Maintenance, :52:00 EST, Route to Pharmacy Electronically, [facility]/pharmacy #[id number], Partial fill upon patient request if the prescription is for a schedule II opioid . Start Date: 09/20/22 Status: Ordered Toprol XL [...] Team Personnel Name: Tasneem Borja MD Position: [facility] Outreach Member Role: PCP Address: Address: [address] [place] [phone]- Name: Laura Roberts RN Position: [facility] RN Supv Member Role: Primary Care Nurse Care Team Related Persons Name: ALYSHA RICO Address: home [address] [place] [address]
--- OUTSIDE RECORDS SUMMARY | 2023-04-16 13:35 | XMS_ITS | Continuity of Care Document ---
Author Name Unknown Organization [facility] Address [address] [place] [phone]- Care Team Providers Care Director Personal Name Role Phone Jonh DILLARD, Tasneem Steiner Primary Care Physician [place] [facility] [place] 02[place]18/23 [facility] [address] [id number] Allergies, Adverse Reactions, Alerts No Known Allergies [...] 11/03/22 13:59:00 EST, Route to Pharmacy Electronically, [facility] [id number], 186, cm, 10/18/22 10:20:00 EST, Height, 101, [...] 12/28/22 12:07:00 EDT, Route to Pharmacy Electronically, [facility] 61176, 188, cm, 12/27/22 15:10:00 EDT, Height, 101, kg, 08/23/22 15:54:00 EST, Dry Weight Start Date: 12/28/22 Status: Ordered Lasix 40 mg oral tablet 40 mg, 1, tablet, By Mouth, Daily, # 180 tablet, Refills 3, Tot. Refills 3, Maintenance, 10/24/22 7:50:00 EST, Route to Pharmacy Electronically, [facility]/pharmacy #[id number], Partial fill upon patient request if [...] 12/28/22 12:07:00 EDT, Route to Pharmacy Electronically, [facility] 81299, 188, cm, 12/27/22 15:10:00 EDT, Height, 101, [...] Team Personnel Name: Tasneem Borja MD Position: [facility] Outreach Member Role: PCP Address: Address: [address] [place] [phone]- Name: Laura Roberts RN Position: S RN Supv Member Role: Primary Care Nurse Care Team Related Persons Name: ALYSHA RICO Address: [address] [address]
--- OUTSIDE RECORDS SUMMARY | 2023-04-16 13:35 | XMS_ITS | Continuity of Care Document ---
Author Name Unknown Organization [facility] Address [address] [place] [phone]- Care Team Providers Care Principal Android Developer Name Role Phone Jonh DILLARD, Tasneem Steiner Primary Care Physician [place] [facility] [place] 12/25/22 - 01/24/23 [facility] [address] [place] [id number] Allergies, Adverse Reactions, Alerts No Known [...] 11/03/22 13:59:00 EST, Route to Pharmacy Electronically, [facility] 02252, 186, cm, 10/18/22 10:20:00 EST, Height, 101, [...] 12/28/22 12:07:00 EDT, Route to Pharmacy Electronically, [facility] 74190, 188, cm, 12/27/22 15:10:00 EDT, Height, 101, kg, 08/23/22 15:54:00 EST, Dry Weight Start Date: 12/28/22 Status: Ordered Lasix 40 mg oral tablet 40 mg, 1, tablet, By Mouth, Daily, # 180 tablet, Refills 3, Tot. Refills 3, Maintenance, 10/24/22 7:50:00 EST, Route to Pharmacy Electronically, [facility]/pharmacy #[id number], Partial fill upon patient [...] Refills, Maintenance, 08/28/22 14:56:00 EST, ER Tablet, [facility], Partial fill upon [...] 12/28/22 12:07:00 EDT, Route to Pharmacy Electronically, [facility] 03125, 188, cm, 12/27/22 15:10:00 EDT, Height, 101, [...] HOSPITAL Outreach Member Role: PCP Address: Address: [address] [place] [address] [place] [address]- Name: Laura Roberts RN Position: S RN Supv Member Role: Primary Care Nurse Care Team Related Persons Name: ALYSHA RICO Address: home [address] [place] [id number]
--- OUTSIDE RECORDS SUMMARY | 2023-04-16 13:35 | XMS_ITS | Continuity of Care Document ---
Author Name Unknown Organization [facility] Address [address] [place] [phone]- Care Team Providers Care Shank Skinner Name Role Phone Tasneem Borja MD Primary Care Physician [place] [facility] [place] 11/22/22 [facility] [address] [place] [phone]- [place] Allergies, Adverse Reactions, Alerts No Known [...] 11/03/22 13:59:00 EST, Route to Pharmacy Electronically, [facility] 12312, 186, cm, 10/18/22 10:20:00 EST, Height, 101, [...] 10/26/22 14:13:00 EST, Route to Pharmacy Electronically, [facility] 85290, 186, cm, 10/18/22 10:20:00 EST, Height, 101, [...] Refills, Maintenance, 08/28/22 14:56:00 EST, ER Tablet, [facility], Partial fill upon patient [...] 10/26/22 14:13:00 EST, Route to Pharmacy Electronically, [facility] 66078, 186, cm, 10/18/22 10:20:00 EST, Height, 101, [...] Team Personnel Name: Tasneem Borja MD Position: [facility] Outreach Member Role: PCP Address: Address: [address] [place] [phone]- Name: Laura Roberts RN Position: S RN Supv Member Role: Primary Care Nurse Care Team Related Persons Name: TRISHA ALYSHA Address: home [address] [place] [address]
--- OUTSIDE RECORDS SUMMARY | 2023-04-16 13:35 | XMS_ITS | Continuity of Care Document ---
Author Name Unknown Organization [facility] Address [address] [place] [address]- Care Team Providers Care Director Shopper Marketing Name Role Phone Jonh DILLARD, Tasneem Steiner Primary Care Physician Encounter [facility] [place] [facility] [id number] Date(s): 09/06/22 - 11/03/22 [facility] [address] [place] [phone]- Attending Physician: Emily Holman NP Allergies, Adverse Reactions, Alerts No Known Allergies Medications amiodarone 200 mg oral tablet 200 mg, 1, tablet, By Mouth, 2 times a day, # 60 tablet, Refills 0, Tot. Refills 0, Maintenance, 08/28/22 14:55:00 EST, Route to Pharmacy Electronically, [facility], Partial fill upon patient [...] 11/03/22 13:59:00 EST, Route to Pharmacy Electronically, [facility] 63962, 186, cm, 10/18/22 10:20:00 EST, Height, 101, [...] 10/26/22 14:13:00 EST, Route to Pharmacy Electronically, [facility] 18289, 186, cm, 10/18/22 10:20:00 EST, Height, 101, kg, 08/23/22 15:54:00 EST, Dry Weight Start Date: 10/26/22 Status: Ordered Lasix 40 mg oral tablet 40 mg, 1, tablet, By Mouth, 2 times a day, # 180 tablet, Refills 3, Tot. Refills 3, Maintenance, 10/24/22 7:50:00 EST, Route to Pharmacy Electronically, [facility]/pharmacy #[id number], Partial fill upon patient request if [...] Refills, Maintenance, 08/28/22 14:56:00 EST, ER Tablet, [facility], Partial fill upon patient request if the prescription is for a schedule II opioid drug., 186, cm, 08/28/22 12:... Start Date: 08/28/22 Stop Date: 08/31/22 Status: Ordered tamsulosin 0.4 mg oral capsule 1, capsule, By Mouth, Daily, # 30 capsule, Refills 0, Maintenance, 10/26/22 14:13:00 EST, Route to Pharmacy Electronically, [facility] 23018, 186, cm, 10/18/22 10:20:00 EST, Height, 101, [...] Team Personnel Name: Tasneem Borja MD Position: [facility] Outreach Member Role: PCP Address: Address: [address] [place] [phone]- Name: Laura Roberts RN Position: S RN Supv Member Role: Primary Care Nurse Care Team Related Persons Name: ALYSHA RICO Address: home [address] [place] [address]
[2023-04-16 15:06] LABS: Appearance Urine Clear; Color Urine Yellow; Glucose Urine UA Negative (Negative); Leukocyte Esterase Urine Small (1+) (Negative); Nitrite Urine Negative (Negative); UMIC TRIGGER UACC YES; Urine Blood Large (3+) (Negative); Urine Ketones Negative (Negative); Urine Protein 30 (1+) mg/dL (Neg-Trace)
[2023-04-16 15:24] LABS: Bacteria Urine Trace (None Seen); Hyaline Casts Urine 0-2 /LPF (0-2); RBC Urine >20 /HPF (0-2); Squamous Epithelial Cell Urine 0-2 /HPF (0-2); UACC Culture Trigger YES; WBC Urine 0-5 /HPF (0-5)
--- NOTE | 2023-04-16 17:23 | PC.NURSE ---
PVr first void s/p dodson cath removal: 314mls- upon completion of scan, pt urinated, repeat PVR 90mls- provider aware
== END 2023-04-16 17:29 | disposition home or self-care (01) ==
PROVIDERS: Physician Assistant Medical; Emergency Provider Student in an Organized Health Care Education/Training Program; PCP Internal Medicine
DX: Z46.6 Encounter for fitting and adjustment of urinary device (principal); R33.9 Retention of urine, unspecified; Z87.440 Personal history of urinary (tract) infections; I10 Essential (primary) hypertension; E78.5 Hyperlipidemia, unspecified; Z87.891 Personal history of nicotine dependence
CPT/HCPCS: 51798; 81001; 87086; 99282; 99283

== ENCOUNTER 2023-04-17 11:59 | Emergency (ER) | payer MEDICARE, OTHER, SELFPAY ==
[2023-02-08 11:12] VITALS: BP 108/58; BP 136/62; BP 144/58; BMI 26.3
[2023-04-17 12:11] VITALS: BP 147/62; PULSE 57; RESP 18; TEMP 36.2; O2SAT 97; BMI 27.8
--- NOTE | 2023-04-17 12:13 | ED.GENADULT ---
HPI - General Adult General Chief complaint: Urogenital-Male Stated complaint: Urinary Tract Issues Time Seen by Provider: 04/17/23 16:03 Source: patient, RN notes reviewed and old records reviewed Mode of arrival: ambulatory History of Present Illness HPI narrative: 77-year-old male with a past medical history of hyperlipidemia, hypertension, thyroid disease, urinary retention S/P Dodson catheter [place] in [place] with catheter removal in our ED yesterday presenting to the ED today complaining urinary hesitancy, incomplete emptying, lower abdominal discomfort since discharge yesterday. Reports dribbling. Patient was started on Ceftin yesterday which he reports compliance. Admits to Urology appointment in June, is trying to get a sooner appointment. Denies fever/chills, nausea/vomiting, hematuria/dysuria Related Data Home Medications Medication Instructions Recorded Confirmed amiodarone 200 mg tablet 200 mg PO BID 01/01/23 atorvastatin 80 mg tablet 80 mg PO BEDTIME 01/01/23 clopidogrel 75 mg tablet 75 mg PO DAILY 01/01/23 ferrous sulfate 325 mg (65 mg 325 mg PO DAILY 01/01/23 iron) tablet,delayed release furosemide 40 mg tablet 40 mg PO BID 01/01/23 isosorbide mononitrate 30 mg 30 mg PO QAM 01/01/23 tablet,extended release 24 hr metoprolol succinate 50 mg 50 mg PO DAILY 01/01/23 tablet,extended release 24 hr tamsulosin 0.4 mg capsule 0.4 mg PO DAILY 01/01/23 Previous Rx's Medication Instructions Recorded azithromycin 250 mg tablet See Rx Instructions PO .COMPLEX #6 01/01/23 tabs cefuroxime axetil 250 mg tablet 250 mg PO BID 7 days #14 tabs 04/16/23 Allergies Allergy/AdvReac Type Severity Reaction Status Date / Time No Known Allergies Allergy Verified 04/17/23 12:11 [No Known Allergies*] Review of Systems Review of Systems: Constitutional: No Fever, No Chills, No Fatigue, No Malaise ENT/Mouth: No Hearing loss, No Ear Pain, No Nasal Congestion, No sore throat Eyes: No Eye Pain, No Swelling, No Redness, No Vision Changes Cardiovascular: No Chest Pain, No SOB Respiratory: No Cough, No Sputum, No Dyspnea Gastrointestinal: No Nausea, No Vomiting, No Diarrhea, No Constipation, + Abdominal pain Genitourinary: No Dysuria, No Urinary Frequency, No Hematuria, + Urinary retention, No Urgency, No Flank Pain, No Urinary Flow Changes, + Hesitancy Musculoskeletal: No joint pain, No Myalgias, No Joint Swelling Skin: No Skin Lesions, No rash Neuro: No Weakness, No Headache Yes all other systems are reviewed and are negative Constitutional: Constitutional: Reports as per [facility] Past Medical History Attestation statement: The following information was validated with the patient. Source: old records reviewed Medical History High cholesterol HTN (hypertension) Hypothyroid Social History Social History Alcohol intake: current Alcohol intake frequency: holidays/special occasions only Patient Tobacco Use Status: Former Tobacco user Tobacco use type: Cigarette Years Smoked: 50 Smoked in Last 30 Days: No Use of substances other than those prescribed or required for medical reasons: Yes Substance Use Type: Marijuana Advance Directives: No Advance Directives Information Provided: Yes Physical Exam ED Vital Signs: Vital Signs - 24 hr 04/17/23 12:11 04/17/23 16:02 04/17/23 17:26 Temperature 97.1 F 98.6 F Pulse Rate 57 63 60 Respiratory Rate 18 16 18 Blood Pressure 147/62 H 132/51 L 152/64 H Pulse Oximetry 97 97 95 Oxygen Delivery Method Room Air Room Air Room Air BMI result Body Mass Index 27.8 Const General: cooperative, healthy appearing, no acute distress, alert and awake Orientation/consciousness: patient oriented x3 Limitations: no limitations HENVT Head: Yes normal to inspection and Yes atraumatic Ears: hearing grossly normal bilaterally General nose exam: Normal external nose present Face and sinus: Yes normal facial exam Eyes General: appearance normal, both eyes and all related structures EOM: EOMs intact bilaterally Neck Neck: Yes normal visual inspection and Yes no meningeal signs Resp Effort & Inspection: normal respiratory effort and no respiratory distress Auscultation: clear to auscultation bilaterally Cardio Rate: regular rate Heart sounds: S1 normal heart sound present and S2 normal heart sound present GI Inspection: Yes normal to inspection Palpation (GI): Soft to palpation, nontender, no guarding and not rigid General: Yes no CVA tenderness Back/Spine/Pelvis Back: no CVA tenderness Skin Rashes: no rashes Wounds: no wounds Neuro General: patient oriented x3, tone normal and no meningeal signs Gait exam (Neuro): Normal gait present Extrem General: Yes normal to inspection Course Course Course Narrative: MRE- 77-year-old male presents for evaluation of difficulty urinating. Patient had urinary retention last week in [place] he had a Dodson catheter placed. Patient was seen here yesterday and had the catheter removed. He was discharged with cefuroxime and reports he has been unable to empty his bladder since. He reports he is able to urinate a very small amount at a time. He had a UA yesterday, so I did not order a repeat UA. Plan for bladder scan and potentially Dodson catheter placement -1732--no leukocytosis. H&H stable. Renal function WNL. Dodson catheter placed w/800 mL in dodson > discussed with patient at length needs closer follow-up with sooner appointment with Urology for catheter removal/trial to void. States he has a few names of urologist in [place], will also supplied patient with our community not a gaiter information to aid with this appointment Results discussed with patient including worrisome signs and symptoms and strict return precautions, and when to return to the emergency department. They verbalized understanding and feel safe for discharge at this time. Medical Decision Making Medical Decision Making MDM Narrative: 77-year-old male with a past medical history of hyperlipidemia, hypertension, thyroid disease, urinary retention S/P Dodson catheter placement [place] with catheter removal in our ED yesterday presenting to the ED today complaining urinary hesitancy, incomplete emptying, lower abdominal discomfort since discharge yesterday. On exam vital signs stable, NAD, nontoxic appearing, abdomen soft/nontender, no CVAT. Bladder scan with 794cc. Concern for urinary retention likely from BPH. Patient unclear if had previous labs/imaging with initial retention, however [facility] Currently being treated for UTI. Low suspicion for renal stone. Rule out MONICA. Lower suspicion for mass/constipation/SBO Plan: Labs, repeat UA not needed at this time as this completed yesterday, Dodson catheter placement Please refer to course for remaining clinical decision making, interpretation of labs/imaging results, and discussions with consultants and/or family members. Differential Diagnosis Differential Diagnoses: The differential diagnosis associated with the presentation includes As above Admission/Observation Consideration of admission/observation: Escalation of care including admission/observation considered Lab Data MDM Lab Attestation statement: I reviewed the patient's lab results. 04/17/23 16:36 04/17/23 16:36 Labs: Lab Results 04/17/23 04/17/23 Range/Units 16:36 16:36 WBC 6.5 (4.8-10.8) X10*3/uL RBC 3.84 L (4.60-5.80) X10*6/uL Hgb 11.4 L (14.0-18.0) g/dl Hct 35.0 L (42.0-52.0) % MCV 91.1 (80.0-98.0) fL MCH 29.7 (27.0-33.0) pg MCHC 32.6 (31.0-36.0) g/dl RDW 14.6 (11.0-16.0) % Plt Count 245 (160-400) X10*3/uL MPV 9.2 L (9.4-12.4) fL Immature Gran % (Auto) 0.3 (0.0-0.4) % Neut % (Auto) 71.3 (45-73) % Lymph % (Auto) 14.4 L (20-40) % Garvin % (Auto) 10.0 (2-11) % Eos % (Auto) 3.2 (0-4) % Baso % (Auto) 0.8 (0-2) % Lymph # (Auto) 0.9 L (1.2-4.9) X10*3/uL Garvin # (Auto) 0.7 (0.1-1.2) X10*3/uL Eos # (Auto) 0.2 (0.0-0.4) X10*3/uL Baso # (Auto) 0.1 (0.0-0.2) X10*3/uL Abs Immat Gran (auto) 0.02 (0.00-0.03) X10*3/uL Absolute Neuts (auto) 4.7 (2.0-8.3) x10*3/uL Absolute Nucleated RBC 0.000 (0.0-0.012) X10*3/uL Nucleated RBC % (auto) 0.0 (0.0-0.2) /100WBC Sodium 141 (135-145) mmol/L Potassium 3.6 (3.3-5.1) mmol/L Chloride 104 (96-108) mmol/L Carbon Dioxide 30 H (22-29) mmol/L Anion Gap 11 L (12-20) BUN 13 (9-16) mg/dL Creatinine 0.84 (0.5-1.4) mg/dL Estim Creat Clear Calc 85.8 Estimated GFR > 60 Random Glucose 186 H (60-115) mg/dL Calcium 8.8 (8.4-10.2) mg/dL Radiology Impression Discussion of test interpretation with radiology: I have reviewed the radiologist's reading. External Record Review External record reviewed: Inpatient record, Office record, Outpatient record, Prior outpatient labs, Prior outpatient radiology, Primary care record and Outside ED record Tests considered The following testing was considered but not selected: As above Prescription Management I considered prescription management with: Pain Medication and Antibiotic Discharge Plan Discharge Clinical Impression: Acute retention of urine Patient Disposition: Home, Self-Care Instructions: Urinary Retention in Men (ED) Additional Instructions: Your blood work is reassuring Continue previously prescribed antibiotics YOU NEED TO FOLLOW-UP WITH UROLOGY IN 1 WEEK If fully stops draining, urine becomes red, you have fever, abdominal pain, nausea or vomiting return to the emergency department Prescriptions: No Action cefuroxime axetil 250 mg tablet 250 mg PO BID 7 Days Qty: 14 0RF ferrous sulfate 325 mg (65 mg iron) tablet,delayed release (DR/EC) 325 mg PO DAILY tamsulosin 0.4 mg capsule 0.4 mg PO DAILY metoprolol succinate 50 mg tablet extended release 24 hr 50 mg PO DAILY atorvastatin 80 mg tablet 80 mg PO BEDTIME clopidogrel 75 mg tablet 75 mg PO DAILY furosemide 40 mg tablet 40 mg PO BID amiodarone 200 mg tablet 200 mg PO BID isosorbide mononitrate 30 mg tablet extended release 24 hr 30 mg PO QAM azithromycin 250 mg tablet See Rx Instructions PO .COMPLEX Qty: 6 0RF Rx Instructions: take 500 mg today (day 1), then 250 mg for 4 days (days 2-5) PO Referrals: [facility] [place] [facility] [Provider Group] [facility] [place] [facility] [place]Provider Group] - 1 week Interventions: ED Discharge Assessment Last Done: 04/17/23 18:38 Discharge Date/Time: 04/17/23 18:39
[2023-04-17 16:02] VITALS: BP 132/51; PULSE 63; RESP 16; TEMP 37; O2SAT 97
--- NOTE | 2023-04-17 16:06 | PC.NURSE ---
pt a&ox3, vss, pt coming in due to UTI - pt states that has intermittent dysuria, denies hematuria, denies n/v/d/fever, tech bedside performing bladder scan.
--- NOTE | 2023-04-17 16:09 | PC.NURSE ---
pt states difficulty urinating, abdomen distended but non-tender to touch, 794ml present on bladder scanner, provider notified.
[2023-04-17 16:42] LABS: MANUAL DIFF FLAG NO
[2023-04-17 17:01] LABS: Anion Gap 11 (12-20); Blood Urea Nitrogen 13 mg/dL (9-16); Calcium 8.8 mg/dL (8.4-10.2); Carbon Dioxide 30 mmol/L (22-29); Chloride 104 mmol/L (96-108); Creatinine Clr Calc Pharmacy 85.8; Estimated Glomerular Filt Rate > 60; Glucose Random 186 mg/dL (60-115); Potassium 3.6 mmol/L (3.3-5.1); Sodium 141 mmol/L (135-145)
[2023-04-17 17:13] LABS: Basophils Absolute Auto 0.1 X10*3/uL (0.0-0.2); Basophils Percent Auto 0.8 % (0-2); Eosinophils Absolute Auto 0.2 X10*3/uL (0.0-0.4); Eosinophils Percent Auto 3.2 % (0-4); Hemoglobin 11.4 g/dl (14.0-18.0); Imm Gran Abs Auto 0.02 X10*3/uL (0.00-0.03); Imm Gran Pct Auto 0.3 % (0.0-0.4); Lymphocytes Absolute Auto 0.9 X10*3/uL (1.2-4.9); Lymphocytes Percent Auto 14.4 % (20-40); Mean Corpuscular HGB Conc 32.6 g/dl (31.0-36.0); Mean Corpuscular Hemoglobin 29.7 pg (27.0-33.0); Mean Corpuscular Volume 91.1 fL (80.0-98.0); Mean Platelet Volume 9.2 fL (9.4-12.4); Monocytes Absolute Auto 0.7 X10*3/uL (0.1-1.2); Neutrophils Absolute Auto 4.7 x10*3/uL (2.0-8.3); Neutrophils Percent Auto 71.3 % (45-73); Platelet Count 245 X10*3/uL (160-400); Red Blood Count 3.84 X10*6/uL (4.60-5.80); Red Cell Distribution Width 14.6 % (11.0-16.0); White Blood Count 6.5 X10*3/uL (4.8-10.8)
[2023-04-17 17:26] VITALS: BP 152/64; PULSE 60; RESP 18; O2SAT 95
--- NOTE | 2023-04-17 17:28 | PC.NURSE ---
pt a&ox3, vss, 16fr dodson catheter inserted w/o any complications, 800ml dark yellow urine present in catheter post insertion. pt stating that he feels way better after dodson was inserted. pt looking to see if provider can help get an earlier appointment - states that the earliest appointment for the urologist was in june. pt resting comfortably. call menjivar placed within reach.
--- NOTE | 2023-04-17 18:30 | PC.NURSE ---
dodson bag switched to leg bag prior to discharge w/o complications.
== END 2023-04-17 18:39 | disposition home or self-care (01) ==
PROVIDERS: Physician Assistant; Emergency Provider Emergency Medicine; PCP Internal Medicine
DX: R33.9 Retention of urine, unspecified (principal); R39.11 Hesitancy of micturition; R10.30 Lower abdominal pain, unspecified; I10 Essential (primary) hypertension; E78.00 Pure hypercholesterolemia, unspecified; F12.90 Cannabis use, unspecified, uncomplicated; Z79.899 Other long term (current) drug therapy
CPT/HCPCS: 36415; 51702; 51798; 80048; 85025; 99283; 99285

== ENCOUNTER 2023-05-14 10:11 | Outpatient (AMB) | payer MEDICARE, OTHER, SELFPAY ==
[2023-02-08 11:12] VITALS: BP 108/58; BP 136/62; BP 144/58; BMI 26.3
--- NOTE | 2023-05-14 10:21 | MHC.OFFVIS ---
Intake Intake Visit Reasons: ER follow up- Frequency Intake Note: New Patient presents for initial visit ER follow up retention/voiding trial Urinary Medications: tamsulosin Blood Thinner: clopidogrel PVR: 149ml's Rubber Block Layer Required: No Accompanied by: Self / Same As Patient Allergies No Known Allergies [No Known Allergies*] Allergy (Verified 05/14/23 10:57) Medication List - Last Reconciled 05/14/23 by LORE MesaP- amiodarone 200 mg PO BID atorvastatin 80 mg PO BEDTIME clopidogrel 75 mg PO DAILY escitalopram oxalate 10 mg PO DAILY ferrous sulfate 325 mg PO DAILY furosemide 40 mg PO BID isosorbide mononitrate ER 30 mg PO QAM metoprolol succinate ER 50 mg PO DAILY tamsulosin 0.8 mg (2 x 0.4 mg) PO BEDTIME 90 days HPI HPI Comments History of Present Illness Details Dre is a very pleasant 77-year-old male patient of Dr. Borja was accompanied by his significant other at today's visit. He presents to the office today as a new patient for urinary retention. He has a past medical history of hypertension, hypothyroidism, and hyperlipidemia. In discussion with the patient and his partner today he discusses approximately 1 month ago being on vacation in [place] at which time he seeked emergency room care at [facility] emergency room due to urinary retention and a catheter was placed on April 12. He reports seeking emergency room care at [facility] on April 16 at which time the catheter was removed however he then returned approximately 1 day later due to the inability to void and catheter was placed due to noted urinary retention over 700 mL. He reports being told to follow-up with Urology however was told to follow up in one month due to increase amount noted in the bladder prior to reinsertion of dodson catheter. He discusses not wanting to wait one month and was able to follow up with a urologist in [place] 2 weeks ago as a new patient and having his Dodson catheter removed at that time. He reports he has since been able to void on his own. When asked patient reports [facility] has not been on Flomax for over a year as prescription ran out of refills and he did not feel the need to be on the medication anymore. PVR 149 mL. Discussed obtaining retroperitoneal ultrasound and PSA for further assessment evaluation. Discussed at length potential causes as well as affects of urinary retention and incomplete bladder emptying. NIKKO offered however patient reports having NIKKO with urologist in [place] and being told prostate felt enlarged however no nodules or masses were palpated. He otherwise offers no other issues or concerns at this time. [facility] Medical History High cholesterol HTN (hypertension) Hypothyroid Social History Alcohol intake: current Alcohol intake frequency: holidays/special occasions only Patient Tobacco Use Status: Former Tobacco user Tobacco use type: Cigarette Years Smoked: 50 Substance Use Type: Marijuana Review of Systems Const Reports as per HPI Eyes Reports no additional complaints ENT Reports no additional complaints Card Reports as per HPI Resp Reports no additional complaints GI Reports no additional complaints Reports as per HPI Musc Reports no additional complaints Neuro Reports no additional complaints Psych Reports no additional complaints Endo Reports no additional complaints Diogenes/Lymph Reports no additional complaints Aller/Immun Reports no additional complaints Physical Exam Const General: cooperative, healthy appearing, comfortable, no acute distress, well developed, alert and awake Orientation/consciousness: patient oriented x3 Limitations: no limitations HEENT Head: Yes normal to inspection, Yes normocephalic and Yes atraumatic Ears: hearing grossly normal bilaterally Eyes General: appearance normal, both eyes and all related structures Neck Neck: Yes normal visual inspection and Yes trachea midline Chest Chest palpation & inspection: normal inspection of the chest Resp Effort & Inspection: normal respiratory effort and able to speak in complete sentences Cardio Rate: regular rate GI Inspection: Yes normal to inspection General: Yes no CVA tenderness Back/Spine/Pelvis Back: no CVA tenderness Skin General skin exam: no rashes or lesions noted Neuro General: patient oriented x3 Extrem General: Yes normal to inspection Psych Appearance: grossly normal and well kempt Mental Status: mental status grossly normal Speech and movement: Normal speech and movement present and Clear speech present Affect: normal affect Attitude: cooperative Thought process: Normal thought process present Thought content: Normal thought content present Insight: Good insight present (Psych) Judgement: Good judgement present (Psych) Office Procedures Post Void Residual Post Residual Void Post Void Residual (PVR): 149 [id number] Void Residual by ultrasound Assessment & Plan Assessment & Plan (1) Urinary retention: Code(s): R33.9 - Retention of urine, unspecified (2) Incomplete bladder emptying: Code(s): R33.9 - Retention of urine, unspecified Plan Unable to obtain urine for urinalysis PVR 149 mL. Discussed at length potential causes and affects of incomplete bladder emptying as well as urinary retention. Start Flomax 0.8 mg as discussed and prescribed. Will obtain retroperitoneal ultrasound for further assessment evaluation. Will obtain PSA for further assessment evaluation. Discussed bladder triggers/irritants. Discussed attempting to void while sitting to relax pelvis and assist with incomplete bladder emptying. Discussed at length possible near future in office cystoscopy for further assessment evaluation. Follow-up in 6-8 weeks with imaging to be completed prior; or sooner with any issues, concerns, and or questions. Orders: Orders US retroperitoneal comp Today R33.9 - Retention of urine, unspecified Prostate Specific Antigen Today N40.0 - Benign prostatic hyperplasia without lower urinary tract symptoms AMB Urinalysis Automated Today Z13.9 - Encounter for screening, unspecified AMB Post Void Residual by ultrasound Today Z13.9 - Encounter for screening, unspecified Medications: New tamsulosin 0.8 mg (2 x 0.4 mg) PO BEDTIME 90 days 180 caps 4RF N40.1 - Benign prostatic hyperplasia with lower urinary tract symptoms, R35.1 - Nocturia Patient Instructions: The patient had an opportunity to ask questions regarding the treatment plan. All questions were answered. Physical exam, labs, and imaging were discussed and reviewed in detail. As well as risks, benefits, and discussion of treatment choices. No major barriers to understanding were identified. The patient expressed understanding and agreement with the above treatment plan. The patient was made aware they should contact our office by phone for worsening of their current condition, the appearance of new symptoms, or with any questions or concerns. Compliance is encouraged with any medications and follow up testing that is ordered. It is a privilege to be allowed the opportunity to participate in? your urological care.? Again, if you have any questions or concerns If you have any questions or concerns please do not hesitate to contact me. The office is [phone]. This note is constructed using voice recognition software. While every effort has been made to ensure accuracy director of market intelligence errors may have been included. Yours sincerely, MARILU Mesa Coding Level of Care Code New Pt Level 4 (53065) Diagnoses Urinary retention R33.9 Incomplete bladder emptying R33.9 CPT Codes Post Residual Void - PVR CPT Code: 18568-Oqqg Void Residual by ultrasound ([id number])
== END 2023-05-14 11:05 | disposition home or self-care (01) ==
PROVIDERS: PCP Internal Medicine; Visit Provider Nurse Practitioner Family
DX: R33.9 Retention of urine, unspecified (principal)
CPT/HCPCS: 99204

== ENCOUNTER → 2023-05-14 10:11 | Outpatient (BNVA) | payer MEDICARE, OTHER, SELFPAY ==
[2023-02-08 11:12] VITALS: BP 108/58; BP 136/62; BP 144/58; BMI 26.3
== END ==
PROVIDERS: PCP Internal Medicine; Visit Provider Nurse Practitioner Family
DX: R33.9 Retention of urine, unspecified (principal)
CPT/HCPCS: 51798; 99202

== ENCOUNTER 2023-06-12 09:46 | Outpatient (REF) | payer MEDICARE, OTHER, SELFPAY ==
[2023-02-08 11:12] VITALS: BP 108/58; BP 136/62; BP 144/58; BMI 26.3
--- NOTE | ~2023-06-12 | US_ITS ---
EXAMINATION: US RETROPERITONEAL COMPLETE (RENAL) CLINICAL INFORMATION: Retention of urine, unspecified. COMPARISON: None available. TECHNIQUE: Real-time imaging of the kidneys and bladder. Limited visualization due to bowel gas. FINDINGS: RIGHT KIDNEY: 10.1 x 5.2 x 7.0 cm (SAG x AP x TRV). No hydronephrosis. No renal calculi. Limited visualization. Renal cortical thickness is normal. LEFT KIDNEY: 10.9 x 6.1 x 5.2 cm (SAG x AP x TRV). No hydronephrosis. No renal calculi. Renal cortical thickness is normal. Limited visualization. BLADDER: Partially distended, limiting evaluation. Bladder wall thickening of 0.5 cm anteriorly, however, evaluation limited due to suboptimal distention. Bilateral ureteral jets are demonstrated. Prevoid bladder volume is 174 mL. Postvoid bladder volume was not obtained as patient unable to void per emergency services director statement. Prostate volume 24 mL. US/US retroperitoneal comp IMPRESSION: 1. Bladder wall thickening of 0.5 cm anteriorly, however, evaluation limited due to suboptimal distention. 2. Postvoid bladder volume was not obtained as patient unable to void per emergency services director statement. 3. Prostate volume 24 mL.
== END 2023-06-12 09:47 | disposition home or self-care (01) ==
LOC: HO.US 09:46
PROVIDERS: PCP Internal Medicine; Visit Provider Nurse Practitioner Family
DX: R33.9 Retention of urine, unspecified (principal)
CPT/HCPCS: 76770

== ENCOUNTER 2023-06-27 08:06 | Outpatient (REF) | payer MEDICARE, OTHER, SELFPAY ==
[2023-02-08 11:12] VITALS: BP 108/58; BP 136/62; BP 144/58; BMI 26.3
[2023-06-27 09:41] LABS: Prostate Specific Antigen 1.32 ng/mL (<0.05-4.0)
== END 2023-06-27 08:07 | disposition home or self-care (01) ==
LOC: HO.LAB 08:06
PROVIDERS: PCP Internal Medicine; Visit Provider Nurse Practitioner Family
DX: N40.0 Benign prostatic hyperplasia without lower urinary tract symptoms (principal); Z12.5 Encounter for screening for malignant neoplasm of prostate
CPT/HCPCS: 36415; 84153

== ENCOUNTER 2023-06-29 13:43 | Outpatient (AMB) | payer MEDICARE, OTHER, SELFPAY ==
[2023-02-08 11:12] VITALS: BP 108/58; BP 136/62; BP 144/58; BMI 26.3
--- NOTE | 2023-06-29 13:52 | MHC.OFFVIS ---
Intake Intake Visit Reasons: Frequency- follow up/US/PSA Intake Note: Patient presents for follow up visit incomplete bladder emptying/frequency/labs (psa 1.32) Urinary Medications: tamsulosin Blood Thinner: clopidogrel PVR: 38ml's Cloth Measurer Required: No Accompanied by: Self / Same As Patient Allergies No Known Allergies [No Known Allergies*] Allergy (Verified 06/29/23 14:30) Medication List - Last Reconciled 06/29/23 by MARILU Mesa amiodarone 200 mg PO BID atorvastatin 80 mg PO BEDTIME clopidogrel 75 mg PO DAILY escitalopram oxalate 10 mg PO DAILY ferrous sulfate 325 mg PO DAILY furosemide 40 mg PO BID isosorbide mononitrate ER 30 mg PO QAM metoprolol succinate ER 50 mg PO DAILY tamsulosin 0.8 mg (2 x 0.4 mg) PO BEDTIME 90 days HPI HPI Comments History of Present Illness Details Dre is a very pleasant 77-year-old male patient of Dr. Borja.He has a past medical history of hypertension, hypothyroidism, and hyperlipidemia. He presents to the office today for follow-up. Of note, patient was previously seen approximately 6 weeks ago as a new patient for urinary retention at which time a voiding trial was performed in office and the patient was able to successfully passes voiding trial. Patient's Flomax was increased to 0.4 mg b.i.d. and a retroperitoneal ultrasound was ordered for further assessment evaluation. These results reviewed with the patient today. Bilateral kidneys with no hydronephrosis or renal calculi. The bladder is partially distended limiting evaluation. Bladder wall thickening of 0.5 cm anteriorly, however evaluation limited due to suboptimal distention. Bilateral ureteral jets are demonstrated. Prostate volume is approximately 25 mL. When asked he reports to be doing and feeling well. He reports no urinary issues or concerns at this time. He reports to be happy with current voiding parameters on 0.4 mg of Flomax b.i.d.. He denies having any issues with urinary retention or feeling of incomplete bladder emptying since his last office visit here. In office urinalysis results reviewed with the patient today. PVR 38ml's. PSA 07/15--1.3. He otherwise offers no other issues or concerns at this time. [facility] Medical History Hypothyroid High cholesterol HTN (hypertension) Social History Alcohol intake: current Alcohol intake frequency: holidays/special occasions only Patient Tobacco Use Status: Former Tobacco user Tobacco use type: Cigarette Years Smoked: 50 Substance Use Type: Marijuana Review of Systems Const Reports as per HPI Eyes Reports no additional complaints ENT Reports no additional complaints Card Reports as per HPI Resp Reports no additional complaints GI Reports no additional complaints Reports as per HPI Musc Reports no additional complaints Neuro Reports no additional complaints Psych Reports no additional complaints Endo Reports no additional complaints Diogenes/Lymph Reports no additional complaints Aller/Immun Reports no additional complaints Physical Exam Const General: cooperative, healthy appearing, comfortable, no acute distress, well developed, alert and awake Orientation/consciousness: patient oriented x3 Limitations: no limitations HEENT Head: Yes normal to inspection, Yes normocephalic and Yes atraumatic Ears: hearing grossly normal bilaterally Eyes General: appearance normal, both eyes and all related structures Neck Neck: Yes normal visual inspection and Yes trachea midline Chest Chest palpation & inspection: normal inspection of the chest Resp Effort & Inspection: normal respiratory effort and able to speak in complete sentences Cardio Rate: regular rate GI Inspection: Yes normal to inspection General: Yes no CVA tenderness Back/Spine/Pelvis Back: no CVA tenderness Skin General skin exam: no rashes or lesions noted Neuro General: patient oriented x3 Extrem General: Yes normal to inspection Psych Appearance: grossly normal and well kempt Mental Status: mental status grossly normal Speech and movement: Normal speech and movement present and Clear speech present Affect: normal affect Attitude: cooperative Thought process: Normal thought process present Thought content: Normal thought content present Insight: Good insight present (Psych) Judgement: Good judgement present (Psych) Office Procedures Post Void Residual Post Residual Void Post Void Residual (PVR): 38 [id number] Void Residual by ultrasound Results AMB Urinalysis, Automated UA Leukoctes 0 Herrera/uL Last Edit by Sophia Ramirez on 06/29/23 14:26 UA Nitrite Negative Last Edit by Sophia Ramirez on 06/29/23 14:26 UA Urobilinogen 0.2 mg/dL Last Edit by Sophia Ramirez on 06/29/23 14:26 UA Protein 0 mg/dL Last Edit by Sophia Ramirez on 06/29/23 14:26 UA pH 6.0 Last Edit by Sophia Lilytawana on 06/29/23 14:26 UA Blood 0 Nathan/uL Last Edit by Sophia Ramirez on 06/29/23 14:26 UA Specific Copake 1.015 Last Edit by Sophia Ramirez on 06/29/23 14:26 UA Ketone Negative Last Edit by Sophia Ramirez on 06/29/23 14:26 UA Bilirubin 0 mg/dL Last Edit by Sophia Ramirez on 06/29/23 14:26 UA Glucose 0 mg/dL Last Edit by Sophia Ramirez on 06/29/23 14:26 Results Reviewed Results Reviewed: Laboratory Last Values Urine pH (Auto) 6.0 06/29/23 13:55 Specific [place] (Auto) 1.015 06/29/23 13:55 Urine Protein (Auto) 0 mg/dL 06/29/23 13:55 Glucose (UA)(Auto) 0 mg/dL 06/29/23 13:55 Urine Ketones (Auto) Negative 06/29/23 13:55 Urine Blood (Auto) 0 Nathan/uL 06/29/23 13:55 Urine Nitrite (Auto) Negative 06/29/23 13:55 Urine Bilirubin (Auto) 0 mg/dL 06/29/23 13:55 Urine Urobilinogen (Auto) 0.2 mg/dL 06/29/23 13:55 Leukocyte Esterase (Auto) 0 Herrera/uL 06/29/23 13:55 Date of Service: 06/12/23 EXAMINATION: US RETROPERITONEAL COMPLETE (RENAL) FINDINGS: RIGHT KIDNEY: 10.1 x 5.2 x 7.0 cm (SAG x AP x TRV). No hydronephrosis. No renal calculi. Limited visualization. Renal cortical thickness is normal. LEFT KIDNEY: 10.9 x 6.1 x 5.2 cm (SAG x AP x TRV). No hydronephrosis. No renal calculi. Renal cortical thickness is normal. Limited visualization. BLADDER: Partially distended, limiting evaluation. Bladder wall thickening of 0.5 cm anteriorly, however, evaluation limited due to suboptimal distention. Bilateral ureteral jets are demonstrated. Prevoid bladder volume is 174 mL. Postvoid bladder volume was not obtained as patient unable to void per parer statement. Prostate volume 24 mL. IMPRESSION: 1. Bladder wall thickening of 0.5 cm anteriorly, however, evaluation limited due to suboptimal distention. 2. Postvoid bladder volume was not obtained as patient unable to void per parer statement. 3. Prostate volume 24 mL. Assessment & Plan Assessment & Plan (1) Incomplete bladder emptying: Code(s): R33.9 - Retention of urine, unspecified (2) Urinary retention: Code(s): R33.9 - Retention of urine, unspecified Plan In office urinalysis results reviewed with the patient today; as noted above. PVR 38 mL. Continue Flomax 0.4 mg b.i.d. as discussed and prescribed. Recent retroperitoneal ultrasound results reviewed with the patient today; as noted above. Patient reports to be happy with current voiding parameters on 0.4 mg of Flomax b.i.d.. PSA results reviewed with the patient today; as noted above. Discussed and stressed the importance of drinking plenty of water daily. Discussed possible near future in office cystoscopy if symptoms arise or reoccur. Follow-up in 6 months with PVR; or sooner with any issues, concerns, and or questions. Orders: Orders AMB Urinalysis Automated 06/29/23 Z13.9 - Encounter for screening, unspecified AMB Post Void Residual by ultrasound 06/29/23 R33.9 - Retention of urine, unspecified Patient Instructions: The patient had an opportunity to ask questions regarding the treatment plan. All questions were answered. Physical exam, labs, and imaging were discussed and reviewed in detail. As well as risks, benefits, and discussion of treatment choices. No major barriers to understanding were identified. The patient expressed understanding and agreement with the above treatment plan. The patient was made aware they should contact our office by phone for worsening of their current condition, the appearance of new symptoms, or with any questions or concerns. Compliance is encouraged with any medications and follow up testing that is ordered. It is a privilege to be allowed the opportunity to participate in? your urological care.? Again, if you have any questions or concerns If you have any questions or concerns please do not hesitate to contact me. The office is [phone]. This note is constructed using voice recognition software. While every effort has been made to ensure accuracy sausage stuffer errors may have been included. Yours sincerely, Nadia Cristina, THICKENER OPERATOR-[employer] Coding Level of Care Code Est Pt Level 3 (91986) Diagnoses Incomplete bladder emptying R33.9 Urinary retention R33.9 CPT Codes Post Residual Void - PVR CPT Code: 23701-Lifa Void Residual by ultrasound ([id number])
== END 2023-06-29 14:32 | disposition home or self-care (01) ==
PROVIDERS: PCP Internal Medicine; Visit Provider Nurse Practitioner Family
DX: Z13.9 Encounter for screening, unspecified (principal)
CPT/HCPCS: 99213

== ENCOUNTER → 2023-06-29 13:43 | Outpatient (BNVA) | payer MEDICARE, OTHER, SELFPAY ==
[2023-02-08 11:12] VITALS: BP 108/58; BP 136/62; BP 144/58; BMI 26.3
== END ==
PROVIDERS: PCP Internal Medicine; Visit Provider Nurse Practitioner Family
DX: R33.9 Retention of urine, unspecified (principal)
CPT/HCPCS: 51798; 81003; 99212